=== PATIENT | female | born 1940 | race Hispanic/Latino ===

== ENCOUNTER 2017-04-06 05:48 | Observation (INO) | payer MEDICARE, OTHER ==
--- NOTE | 2017-04-06 06:15 | ED PDOC ---
Arrival/HPI - General Chief Complaint: Weakness/Neurological Deficit Time Seen by Provider: 04/06/17 05:57 Historian: Patient - History of Present Illness Narrative History of Present Illness (Text): 04/06/17 06:13 Pt is a 77 yo who lives at home with her disabled .Staes that earlier today was having trouble getting the words out.Staes she also felt L sided wkns at that time.Called EMS ,pt states that the wkns and inability to speak resolved on way to hospital.Pt denies headache,denies CP or SOB Time/Duration: Prior to Arrival Symptom Onset: Sudden Symptom Course: Resolved Quality: Other Severity Level: Severe Activities at Onset: Rest Associated Symptoms (Text): 04/06/17 06:16 Pt also states she felt transient numbness to the L side of her body which has since resolved Past Medical History - Infectious Disease Hx of Infectious Diseases: None - Cardiac Hx Cardiac Disorders: Yes (mi) Hx Congestive Heart Failure: Yes Other/Comment: angioplasty and stent placement for aortic occlusion 09/23/15 - Pulmonary Hx Respiratory Disorders: No - Neurological Hx Neurological Disorder: Yes HX Cerebrovascular Accident: Yes - HEENT Hx HEENT Disorder: Yes (eyeglasses) - Renal Hx Renal Disorder: No - Endocrine/Metabolic Hx Endocrine Disorders: No - Hematological/Oncological Hx Blood Disorders: Yes (blood transfusion 08/2015) Hx Anemia: Yes (IRON DEFICIENCY ANEMIA) - Integumentary Hx Dermatological Disorder: Yes Other/Comment: b/l arms thin skin with multiple redish purple skin discolorations, slight redness posterior r lower buttock and thigh, l lower abd 1cm x 0.5cm red wound which developed post colostomy reversal sx small amt dng noted,left hip healed red wound, stage 2 1cm round sacral wound clean and dry covered with optifoam,r arm skin tear, left 2nd toe red swollen red dark brown 1cm round dry scab, rash to top of left foot, rash to top right foot, dry brown scab 0.5cm round to left knee, with 3 areas of redness to lle, redness to right knee with multiple areas of red skin, abd scar. - Musculoskeletal/Rheumatological Hx Falls: No Hx Unsteady Gait: Yes - Gastrointestinal Hx Gastrointestinal Disorders: Yes (hc c dif 04/24/16) Hx Colostomy: Yes (reversal 03/07/16) Hx Diverticulitis: Yes Other/Comment: hx GI bleed ischemic bowel, ischemic colitis. JAIL CHART STATES SHE HAS ABSCESS ON ABD. WALL - Genitourinary/Gynecological Hx Genitourinary Disorders: Yes Hx Urinary Tract Infection: Yes - Psychiatric Hx Psychophysiologic Disorder: No Hx Emotional Abuse: No Hx Physical Abuse: No Hx Substance Use: No - Surgical History Hx Appendectomy: Yes Hx Hysterectomy: Yes Other/Comment: colostomy reversal 03/07/16, r hemicolectomy 09/15/15 with colostomy - Anesthesia Hx Anesthesia: No Hx Anesthesia Reactions: No Hx Malignant Hyperthermia: No - Suicidal Assessment Feels Threatened In Home Enviroment: No Family/Social History Smoking Status: Never Smoked Hx Alcohol Use: No Hx Substance Use: No Allergies/Home Meds Allergies/Adverse Reactions: Allergies No Known Allergies Allergy (Verified 04/06/17 05:53) Home Medications: Home Meds Medication Instructions Recorded Confirmed Iron,Carbonyl [Feosol] 65 mg PO DAILY 02/29/16 04/06/17 Pantoprazole [Protonix EC Tab] 40 mg PO DAILY 02/29/16 04/06/17 traMADol [Ultram] 50 mg PO PRN PRN 02/29/16 04/06/17 Physical Exam Vital Signs Temp Pulse Resp BP Pulse Ox 04/06/17 06:00 98.5 F 80 18 108/67 99 Disposition/Present on Arrival - Present on Arrival History of DVT/PE: No History of Uncontrolled Diabetes: No Urinary Catheter: No History of Decub. Ulcer: No History Surgical Site Infection Following: None - Disposition
[2017-04-06] MEDS ORDERED: Sodium Chloride 0.9% 1,000 ML IV STA (06:17)
[2017-04-06 06:45] LABS: BASO # 0.05 K/mm3 (0.0-2.0); BASO % 0.5 % (0.0-3.0); GRAN # 7.93 (1.4-6.5); HEMATOCRIT 32.3 % (36.0-48.0); LYMPH # 0.5 (1.2-3.4); LYMPH % 4.8 % (22.0-35.0); MEAN CELL VOLUME 118.8 fl (80.0-105.0); MEAN CORPUSCULAR HEMOGLOBIN 39.3 pg (25.0-35.0); MEAN CORPUSCULAR HGB CONC 33.1 g/dl (31.0-37.0); MEAN PLATELET VOLUME 9.6 fl (7.0-11.0); MONO # 0.9 (0.1-0.6); MONO % 9.7 % (1.0-6.0); PLATELET COUNT 492 10^3/uL (120.0-450.0); RED CELL DISTRIBUTION WIDTH 18.7 % (11.5-14.5); WHITE BLOOD COUNT 9.3 10^3/ul (4.5-11.0)
[2017-04-06 06:46] LABS: PH,URINE 5.5 (4.7-8.0); URINE BILIRUBIN NEGATIVE (NEGATIVE); URINE BLOOD TRACE-INTACT (NEGATIVE); URINE GLUCOSE (UA) NEGATIVE (NEGATIVE); URINE KETONE 40 mg/dL (NEGATIVE); URINE LEUKOCYTE ESTERASE NEGATIVE Leu/uL (NEGATIVE); URINE PROTEIN NEGATIVE mg/dL (<30 mg/dL); URINE UROBILINOGEN 0.2 E.U./dL (<1 E.U./dL)
[2017-04-06 06:51] LABS: URINE COLOR YELLOW (YELLOW)
[2017-04-06 06:52] LABS: URINE APPEARANCE SL CLOUDY (CLEAR)
--- NOTE | 2017-04-06 06:54 | CT ---
EXAM: CT Head Without Intravenous Contrast CLINICAL HISTORY: 77 years old, female; Signs and symptoms; Other: TIA TECHNIQUE: Axial computed tomography images of the head/brain without intravenous contrast. All CT scans at this facility use one or more dose reduction techniques, viz.: automated exposure control; ma/kV adjustment per patient size (including targeted exams where dose is matched to indication; i.e. head); or iterative reconstruction technique. COMPARISON: No relevant prior studies available. FINDINGS: Limitations: Motion artifact - mild. Brain: Moderate atrophy. No definite intracranial hemorrhage. No mass. Minimal encephalomalacia within LEFT occipital region. Few scattered foci of decreased attenuation within periventricular/subcortical white matter. Probable chronic infarct within RIGHT cerebellum. No definite edema. Ventricles: No hydrocephalus. Bones/joints: No acute fracture. Soft tissues: Unremarkable. Vasculature: Atherosclerotic disease of intracranial arteries. Sinuses: No acute sinusitis. Mastoid air cells: Partial opacification of LEFT mastoid. Orbits: Unremarkable as visualized. IMPRESSION: 1. Nonspecific white matter changes. Acute infarction may be CT occult within first 24 hours. If a focal deficit persists, consider followup CT or MRI for further evaluation. 2. Incidental/non-acute findings are described above.
[2017-04-06 07:00] LABS: URINE BACTERIA MANY (NEG); URINE RBC 0 - 2 /hpf (0-2); URINE WBC 0 - 2 /hpf (0-6)
[2017-04-06 07:03] LABS: INR 0.99 (0.93-1.08); PARTIAL THROMBOPLASTIN TIME 33.4 Seconds (25.1-36.5)
[2017-04-06 07:08] LABS: ALB/GLOB RATIO 1.2 (1.1-1.8); ALKALINE PHOSPHATASE 480 U/L (38-126); ALT/SGPT 52 U/L (7-56); AST/SGOT 147 U/L (14-36); BILIRUBIN,TOTAL 0.9 mg/dL (0.2-1.3); BLOOD UREA NITROGEN 18 mg/dL (7-21); CARBON DIOXIDE 15 mmol/L (21-33); CHLORIDE 107 mmol/L (98-107); GFR AFRICAN-AMERICAN > 60; POTASSIUM 5.5 mmol/L (3.6-5.0); SODIUM 142 mmol/L (132-148); TOTAL PROTEIN 7.4 g/dL (5.8-8.3)
[2017-04-06] MEDS ORDERED: Dextrose 50% SYRINGE Inj (50 ml) ONE (07:09)
[2017-04-06 07:12] LABS: TROPONIN I 0.01 ng/mL
[2017-04-06] MEDS ORDERED: Dextrose 50% SYRINGE Inj (50 ml) IVP STA (07:12)
[2017-04-06] MEDS ORDERED: Sod Polystyrene Sulf 15 gm/60 ml Susp PO STA (07:15)
--- NOTE | 2017-04-06 07:33 | ED PDOC ---
Physical Exam Vital Signs Temp Pulse Resp BP Pulse Ox 04/06/17 09:10 98.1 F 72 19 120/70 97 04/06/17 06:00 98.5 F 80 18 108/67 99 Temperature: Afebrile Blood Pressure: Normal Pulse: Regular Respiratory Rate: Normal Appearance: Positive for: Well-Appearing, Non-Toxic, Comfortable Pain Distress: None Mental Status: Positive for: Alert and Oriented X 3 - Systems Exam Neurological: Present: GCS=15, CN II-XII Intact, Speech Normal, Motor Func Grossly Intact, Normal Sensory Function, Normal Cerebellar Funct, Memory Normal , Normal 2Pt Descrimination Medical Decision Making ED Course and Treatment: 04/06/17 07:00 Case was signed out to me by Dr. Thrasher. Patient came into the emergency department for speech changes and left sided weakness. Currently pending labs and CT readings. 04/06/17 07:[address]: Creator : Luke Shaw MD FINDINGS: Limitations: Motion artifact - mild. Brain: Moderate atrophy. No definite intracranial hemorrhage. No mass. Minimal encephalomalacia within LEFT occipital region. Few scattered foci of decreased attenuation within periventricular/subcortical white matter. Probable chronic infarct within RIGHT cerebellum. No definite edema. Ventricles: No hydrocephalus. Bones/joints: No acute fracture. Soft tissues: Unremarkable. Vasculature: Atherosclerotic disease of intracranial arteries. Sinuses: No acute sinusitis. Mastoid air cells: Partial opacification of LEFT mastoid. Orbits: Unremarkable as visualized. IMPRESSION: 1. Nonspecific white matter changes. Acute infarction may be CT occult within first 24 hours. If a focal deficit persists, consider followup CT or MRI for further evaluation. 2. Incidental/non-acute findings are described above. 04/06/17 08:14 EKG: Ordered, reviewed, and independently interpreted the EKG. Rate : 76 BPM Rhythm : NSR Interpretation : No ST-segment elevations or depressions, no T-wave inversions, normal intervals. 04/06/17 08:52 CT head negative for acute infarct. Aspirin ordered. Patient found to be hypoglycemic and treated with dextrose one amp. Case discussed with Dr. Lucina Martinez who will place her on his service. 04/06/17 09:00 Chest X-ray Impression: No active disease. Normal 04/06/17 09:46 Case was discussed with Dr. Elliot, Neurology, who agrees with plan. - Lab Interpretations Lab Results: 04/06/17 06:20 04/06/17 06:20 Lab Results 04/06/17 07:30: POC Glucose (mg/dL) 272 H 04/06/17 07:09: POC Glucose (mg/dL) 56 L 04/06/17 06:30: Urine Color Yellow, Urine Appearance Sl cloudy, Urine pH 5.5, Ur Specific [place] >= 1.030, Urine Protein Negative, Urine Glucose (UA) Negative, Urine Ketones 40 H, Urine Blood Trace-intact H, Urine Nitrate Positive H, Urine Bilirubin Negative, Urine Urobilinogen 0.2, Ur Leukocyte Esterase Negative, Urine RBC 0 - 2, Urine WBC 0 - 2, Ur Epithelial Cells 1 - 3, Urine Bacteria Many 04/06/17 06:20: Sodium 142, Potassium 5.5 H, Chloride 107, Carbon Dioxide 15 L, Anion Gap 25 H, BUN 18, Creatinine 0.6 L, Est GFR ( Amer) > 60, Est GFR ( Non-Af Amer) > 60, Random Glucose 45 L* D, Calcium 9.0, Total Bilirubin 0.9, AST 147 H, ALT 52, Alkaline Phosphatase 480 H, Troponin I 0.01, Total Protein 7.4, Albumin 4.0, Globulin 3.3, Albumin/Globulin Ratio 1.2 04/06/17 06:20: PT 10.9, INR 0.99, APTT 33.4 04/06/17 06:20: WBC 9.3, RBC 2.72 L, Hgb 10.7 L, Hct 32.3 L, MCV 118.8 H, MCH 39.3 H, MCHC 33.1, RDW 18.7 H, Plt Count 492 H, MPV 9.6, Gran % 85.0 H, Lymph % (Auto) 4.8 L, [place] % (Auto) 9.7 H, Eos % (Auto) 0.0 L, Baso % (Auto) 0.5, Gran # 7.93 H, Lymph # 0.5 L, [place] # 0.9 H, Eos # 0.0, Baso # 0.05, Neutrophils % ( Manual) 86 H, Lymphocytes % (Manual) 4 L, Monocytes % (Manual) 10 H - RAD Interpretation Radiology Orders: 04/06/17 06:17 HEAD W/O (CODE STROKE) [CT] Stat 04/06/17 08:42 CXR [CHEST PORTABLE] [RAD] Stat Pipe Smoking Machine Offbearer: ED Physician - Medication Orders Current Medication Orders: Discontinued Medications Aspirin (Aspirin) 325 mg PO STAT STA Stop: 04/06/17 08:50 Last Admin: 04/06/17 08:56 Dose: 325 mg Dextrose (Dextrose 50% Inj) 50 ml IVP STAT STA Stop: 04/06/17 07:13 Last Admin: 04/06/17 08:11 Dose: Sodium Chloride (Sodium Chloride 0.9%) 1,000 mls @ 500 mls/hr IV .Q2H STA Stop: 04/06/17 08:16 Last Admin: 04/06/17 06:43 Dose: 500 mls/hr eMAR Start Stop Document 04/06/17 06:43 SS (Rec: 04/06/17 06:43 SS [id number]) Intravenous Solution Start Date 04/06/17 Start Time 06:43 End Date 04/06/17 End time 08:43 Total Infusion Time 120 Sodium Polystyrene Sulfonate (Kayexalate Susp) 30 gm PO STAT STA Stop: 04/06/17 07:16 Last Admin: 04/06/17 08:00 Dose: 30 gm - Scribe Statement The provider has reviewed the documentation as recorded by the Michael Watson Provider Scribe Attestation: All medical record entries made by the Scribe were at my direction and personally dictated by me. I have reviewed the chart and agree that the record accurately reflects my personal performance of the history, physical exam, medical decision making, and the department course for this patient. I have also personally directed, reviewed, and agree with the discharge instructions and disposition. Disposition/Present on Arrival - Present on Arrival Any Indicators Present on Arrival: No History of DVT/PE: No History of Uncontrolled Diabetes: No Urinary Catheter: No History of Decub. Ulcer: No History Surgical Site Infection Following: None - Disposition Have Diagnosis and Disposition been Completed?: Yes Diagnosis: Hypoglycemia Disposition: HOSPITALIZED Disposition Time: 08:53 Patient Plan: Observation Condition: FAIR NIHSS Stroke Scale - Date/Time Evaluation Performed Date Performed: 04/06/17 Time Performed: 07:00 When Was NIHSS Performed: Baseline - How Severe is the Stroke Level of Consciousness: 0=Alert LOC to Questions: 0=Both comments correct LOC to commands: 0=Obeys both correctly Best Gaze: 0=Normal Visual: 0=No visual loss Facial: 0=Normal Motor Arm - Left: 0=No drift Motor Arm - Right: 0=No drift Motor Leg - Left: 0=No drift Motor Leg - Right: 0=No drift Limb Ataxia: 0=Absent Sensory: 0=Normal Best Language: 0=No aphasia Dysarthia: 0=Normal articulation Extinction & Inattention (Neglect): 0=Normal, no object Score: 0 rTPA Inclusion/Exclusion - Refusal of Treatment Patient Refused Treatment: No - Inclusion Criteria for Altepase Patient is 18 years or Older: Yes The Clinical Diagnosis of Ischemic Stroke That is Causing a Potentially Disabling Neurological Deficit: No Time of Onset is Well Established to be Less Than 270 Minute Before Treatment Would Begin: Yes Risk/Benefit Discussed With Patient/Family Member Present: No - Warning to TPA With Conditions Following Conditions Weighed Against Anticipated Benefit: Yes Condition: Stroke Serevity Too Mild, Rapid Improvement
[2017-04-06 07:34] LABS: GLUCOSE,RANDOM 45 mg/dL (70-110)
[2017-04-06 08:40] LABS: NEUTROPHIL 86 % (50.0-70.0)
--- NOTE | 2017-04-06 10:17 | HP ---
HISTORY OF PRESENT ILLNESS: The patient is a 77-year-old woman with a past medical history of CAD s/p NSTEMI, PVD and anemia of chronic disease who presented to [facility] for evaluation of a 1 day history of sudden onset dysarthria and left sided weakness. The patient reported to be in her usual state of health until the onset of symptoms, which were sudden in nature, and by the time of arrival to the ED she was noted to have resolution of her symptoms. She denied any preceding fevers, chills, rigors or URI type symptoms. At present she reports being back to her baseline status. PAST MEDICAL HISTORY: As per HPI, also history of ischemic colitis s/p right hemicolectomy s/p ileostomy with reversal PAST SURGICAL HISTORY: As per HPI. MEDICATIONS: Aspirin 81 mg p.o. daily, Lipitor 80 mg p.o. daily. ALLERGIES: NO KNOWN DRUG ALLERGIES. FAMILY HISTORY: Noncontributory. SOCIAL HISTORY: The patient denies any toxic habits. REVIEW OF SYSTEMS: A 14-point review of systems is negative except as per HPI. PHYSICAL EXAMINATION: VITAL SIGNS: Temperature 98.1, pulse 72, blood pressure 120/70, respiratory rate 19, oxygen saturation 97% on room air. GENERAL: Elderly woman, appearing her stated age, in no apparent distress. HEENT: Normocephalic, atraumatic. PERRL, EOMI. No scleral icterus. Mild conjunctival pallor is noted. NECK: No JVD. No bruits. LUNGS: Clear to auscultation. CARDIOVASCULAR: Regular rate and rhythm. ABDOMEN: Normoactive bowel sounds. Soft, nontender and nondistended. EXTREMITIES: No edema. NEUROLOGIC: Awake, alert and oriented x 3. No focal motor deficits. CN II- XII intact. LABORATORY DATA: WBC 9.3 with 85% neutrophils, hemoglobin 10.7, hematocrit 32, platelets 492. Sodium 142, potassium 5.5, chloride 107, bicarb 15, BUN 18, creatinine 0.6, glucose 45. IMAGING STUDIES: CT of the head without contrast demonstrated nonspecific white matter changes but otherwise no acute intracranial pathology. ASSESSMENT: The patient is a 77 year old woman with past medical history of CAD s/p NSTEMI, PVD, mesenteric ischemia s/p right hemicolectomy s/p ileostomy with reversal who presented with a 1 day history of sudden onset of left-sided weakness and dysarthria with spontaneous resolution of symptoms, who subsequently admitted to the general medical dale for continued management of possible TIA and symptomatic hypoglycemia. PLAN: 1. TIA. CT of the head is reviewed and demonstrates no acute intracranial pathology. Dr. Zarate of Neurology has been consulted. We will obtain carotid artery ultrasound. Continue aspirin 81 mg p.o. daily, Lipitor 80 mg p.o. daily. Continue to monitor neuro status q. 4 hours. 2. Hypoglycemia. Etiology likely secondary to poor p.o. intake as the patient states that she has not been eating well over the last several days. We will continue to monitor fingersticks before every meal and at bedtime. 3. CAD s/p NSTEMI. Continue aspirin 81 mg p.o. daily and Lipitor 80 mg p.o. daily. 4. Peripheral vascular disease. Continue aspirin 81 mg p.o. daily and Lipitor 80 mg p.o. daily. 5. Prophylaxis. GI prophylaxis is not indicated as the patient is eating. DVT prophylaxis is not indicated as the patient is ambulatory. CODE STATUS: Full code. Elpidio Martinze MD MTDD
--- NOTE | 2017-04-06 10:41 | RAD ---
HISTORY: Aphasia COMPARISON: No prior. FINDINGS: LUNGS: Hyperinflation with paucity of interstitial markings in the upper lobes consistent with underlying emphysema. Coarsened/reticular appearance of the interstitial markings both mid to lower lung zones again noted. Probable mild scarring left lung base. PLEURA: Mild biapical pleural thickening No significant pleural effusion identified, no pneumothorax apparent. CARDIOVASCULAR: Normal. OSSEOUS STRUCTURES: No significant abnormalities. VISUALIZED UPPER ABDOMEN: Normal. OTHER FINDINGS: None. IMPRESSION: Hyperinflation with paucity of interstitial markings in the upper lobes consistent with underlying emphysema. Coarsened/reticular appearance of the interstitial markings both mid to lower lung zones again noted. Probable mild scarring left lung base.
[2017-04-06 12:46] VITALS: RESP 18; BMI 15.1
[2017-04-06 18:18] VITALS: O2SAT 100
--- NOTE | 2017-04-06 20:04 | CARD ---
APPROVED REPORT EKG Measurement Heart [id number] <Conclusion> Normal sinus rhythm Normal ECG
--- NOTE | 2017-04-06 20:06 | CARD ---
APPROVED REPORT EKG Measurement Heart [id number] <Conclusion> Sinus rhythm with occasional and consecutive premature ventricular complexes and fusion complexes Nonspecific ST and T wave abnormality Prolonged QT Abnormal ECG
--- NOTE | 2017-04-07 01:41 | CON ---
DATE: HISTORY OF PRESENT ILLNESS: This is a 77-year-old white female with past medical history not significant, came to hospital with complaint of aphasia and weakness, and found to have hypoglycemia and symptoms have improved coming to hospital. Called to evaluate the patient. CAT scan of the head was done, which was reported negative. PAST MEDICAL HISTORY: The patient also has past medical history of coronary artery disease, [place], anemia of chronic disease, and the patient had sudden onset of dysarthria and left-sided weakness. SOCIAL HISTORY: Does not smoke, does not drink. REVIEW OF SYSTEMS: A 10-point review of systems was negative except weakness on the right side and dysphasia. PHYSICAL EXAMINATION HEENT: Normocephalic and atraumatic. NECK: Supple. NEUROLOGIC: Alert, awake oriented to self and place. Cranial nerves II to XII were tested. Pupils reactive. Bilateral bilateral adenoidectomy. No facial asymmetry. Tongue midline. Motor examination: Moves all the extremities spontaneously and equally. Tone normal. Deep tendon reflexes 1+. Both plantars are downgoing. Sensory appears intact. Cerebellar; gait deferred. IMPRESSION: A 77-year-old with past medical history of coronary artery disease and myocardial infarction who came to the hospital with sudden onset of left-sided weakness, dysarthria and aphasia. Started improving coming to the emergency room. CAT scan of the head was done, which was reported negative. Workup in progress possibly secondary to hypoglycemia and symptoms improved. We will followup. Parmjit Zarate MD
[2017-04-07 07:17] LABS: BASO # 0.03 K/mm3 (0.0-2.0); BASO % 0.4 % (0.0-3.0); EOS % 0.4 % (1.5-5.0); GRAN # 5.44 (1.4-6.5); GRAN % 74.6 % (50.0-68.0); HEMATOCRIT 26.7 % (36.0-48.0); LYMPH # 0.9 (1.2-3.4); LYMPH % 11.7 % (22.0-35.0); MEAN CELL VOLUME 115.6 fl (80.0-105.0); MEAN CORPUSCULAR HEMOGLOBIN 38.5 pg (25.0-35.0); MEAN CORPUSCULAR HGB CONC 33.3 g/dl (31.0-37.0); MEAN PLATELET VOLUME 9.1 fl (7.0-11.0); MONO # 0.9 (0.1-0.6); MONO % 12.9 % (1.0-6.0); RED CELL DISTRIBUTION WIDTH 18.6 % (11.5-14.5); WHITE BLOOD COUNT 7.3 10^3/ul (4.5-11.0)
[2017-04-07 07:45] LABS: ALB/GLOB RATIO 1.1 (1.1-1.8); ALKALINE PHOSPHATASE 442 U/L (38-126); ALT/SGPT 46 U/L (7-56); AST/SGOT 96 U/L (14-36); BILIRUBIN,TOTAL 0.9 mg/dL (0.2-1.3); BLOOD UREA NITROGEN 14 mg/dL (7-21); CALCIUM 8.4 mg/dL (8.4-10.5); CARBON DIOXIDE 27 mmol/L (21-33); CHLORIDE 105 mmol/L (98-107); CHOLESTEROL 164 mg/dL (130-200); GFR AFRICAN-AMERICAN > 60; GLUCOSE,RANDOM 95 mg/dL (70-110); SODIUM 138 mmol/L (132-148); TOTAL PROTEIN 5.7 g/dL (5.8-8.3)
[2017-04-07 08:07] VITALS: BP 93/57; TEMP 98.7
[2017-04-07] MEDS ORDERED: Potassium Chloride 20 mEq ER Tab PO ONE (08:22)
--- NOTE | 2017-04-07 09:19 | PN ---
SUBJECTIVE: The patient was seen and examined at bedside on the remote telemetry dale. No acute events overnight. She remains afebrile and hemodynamically stable. The patient reports complete resolution of her presenting symptoms, which consisted of dysarthria and left-sided weakness. This morning she states she feels great and that she is back to her baseline and is asking when she will be discharged home. OBJECTIVE: VITAL SIGNS: Temperature 98.7, pulse 65, blood pressure 93/57, respiratory rate 18, oxygen saturation 100% on room air. GENERAL: Elderly woman appearing her stated age, lying in bed in no apparent distress. HEENT: PERRL. EOMI. No scleral icterus. Mild conjunctival pallor is noted. NECK: No JVD. No bruits. LUNGS: Clear to auscultation. CARDIOVASCULAR: Regular rate and rhythm. Normal S1 and S2. ABDOMEN: Normoactive bowel sounds. Soft, nontender, and nondistended. EXTREMITIES: No edema. NEUROLOGIC: Awake, alert and oriented x3. No focal motor deficits. LABORATORY DATA: WBC 7.3, hemoglobin 8.9, hematocrit 26.7, and platelets 379. MCV 115. Chemistry reviewed and unremarkable with exception of potassium of 3. ASSESSMENT: The patient is a 77 year old woman with a past medical history of CAD s/p NSTEMI, PVD and mesenteric ischemia s/p right hemicolectomy s/p ileostomy with reversal who presented with a 1 day history of sudden onset of left-sided weakness and dysarthria with spontaneous resolution of symptoms who was subsequently admitted to the remote telemetry dale for continued management of possible TIA and symptomatic hypoglycemia. PLAN: 1. TIA. Input from Dr. Zarate of neurology noted. CT of the head demonstrated no acute pathology. Carotid U/S is pending. Continue with Aspirin 81 mg p.o. daily and Lipitor 80 mg p.o. daily. 2. Hypoglycemia, likely secondary to poor p.o. intake, resolved. The patient' s fingersticks have been reviewed and demonstrate satisfactory glucose values. Continue to encourage p.o. intake. 3. CAD s/p NSTEMI. Continue aspirin 81 mg p.o. daily and Lipitor 80 mg p.o. daily. 4. Peripheral vascular disease. Continue aspirin 81 mg p.o. daily and Lipitor 80 mg p.o. daily. 5. Prophylaxis. GI prophylaxis is not indicated as the patient is eating. DVT prophylaxis is not indicated as the patient is ambulatory. 6. Disposition: The patient likely discharged home today pending carotid ultrasonography reports. CODE STATUS: Full code. Elpidio Martinez MD MTDD
[2017-04-07 10:27] VITALS: PULSE 98
--- NOTE | 2017-04-07 13:20 | US ---
PROCEDURE: HISTORY: Carotid stenosis PHYSICIAN(S): Thee Sosa MD. TECHNIQUE: Duplex sonography and color-flow Doppler were used to evaluate the carotid bifurcations and limited segments of the vertebral arteries bilaterally. FINDINGS: There is extensive heterogeneous echogenic plaque with shadowing noted at the carotid bifurcations bilaterally. The peak systolic velocity in the proximal right internal carotid artery is 190 cm/sec. This corresponds to a 60-79 percent proximal right ICA stenosis. Moderately elevated systolic velocities are noted in the proximal right external carotid artery. There is antegrade flow in the right vertebral artery. The peak systolic velocity in the proximal left internal carotid artery is 217 cm/sec. The end-diastolic velocity at this position is 14 cm/second This corresponds to a 60-79 percent proximal left ICA stenosis. Mildly elevated systolic velocities are noted in the proximal left external carotid artery. There is antegrade flow in the left vertebral artery. IMPRESSION: 1. Bilateral 60-79 percent proximal ICA stenoses. 2. Antegrade flow in both vertebral arteries.
--- NOTE | 2017-04-07 14:09 | CP.PCM.PN ---
Subjective - Date & Time of Evaluation Date of Evaluation: 04/07/17 Time of Evaluation: 09:00 - Subjective Subjective: PGY-2 Neurology progress note for Dr. Zarate's service Patient jacob nd examined at bedside, no acute distress, she is resting comfortably. Patient is alter and oriented to person, place and situation. She states that she aphasia and weakness have completely resolved. Denies any fever , chills, headaches, dizziness, chest pain. Objective - Vital Signs/Intake and Output Vital Signs (last 24 hours): Temp Pulse Resp BP Pulse Ox 98.7 F 98 H 18 93/57 L 100 04/07/17 08:06 04/07/17 10:00 04/07/17 08:06 04/07/17 08:06 04/07/17 08:06 Intake and Output: 04/07/17 04/07/17 06:59 18:59 Intake Total 540 Balance 540 - Medications Medications: Current Medications Acetaminophen (Tylenol 325mg Tab) 650 mg PO Q6H PRN PRN Reason: Pain, moderate (4-7) Last Admin: 04/06/17 21:37 Dose: 650 mg Aspirin (Aspirin Chewable) 81 mg PO DAILY [facility] Last Admin: 04/07/17 09:05 Dose: 81 mg Atorvastatin Calcium (Lipitor) 80 mg PO DIN [facility] Last Admin: 04/06/17 17:22 Dose: 80 mg - Labs Labs: 04/07/17 06:30 04/07/17 06:30 PT 10.9 SECONDS (9.4-12.5) 04/06/17 06:20 INR 0.99 (0.93-1.08) 04/06/17 06:20 APTT 33.4 Seconds (25.1-36.5) 04/06/17 06:20 - Constitutional Appears: Well, No Acute Distress - Head Exam Head Exam: ATRAUMATIC, NORMAL INSPECTION, NORMOCEPHALIC - Eye Exam Eye Exam: EOMI, Normal appearance - ENT Exam ENT Exam: Mucous Membranes Moist - Respiratory Exam Respiratory Exam: Clear to Ausculation Bilateral, NORMAL BREATHING PATTERN. absent: Respiratory Distress - Cardiovascular Exam Cardiovascular Exam: REGULAR RHYTHM - Extremities Exam Extremities Exam: Normal Inspection - Neurological Exam Neurological Exam: Alert, Awake, CN II-XII Intact, Oriented x3 Neuro motor strength exam: Left Upper Extremity: 5, Right Upper Extremity: 5, Left Lower Extremity: 5, Right Lower Extremity: 5 - Skin Skin Exam: Dry, Intact, Normal Color, Warm Assessment and Plan - Assessment and Plan (Free Text) Assessment: 77 yo female with PMH of CAD, [place], present with transient aphasia and left sided weakness most likely TIA - head CT negative - carotid ultrasound 60-75% stenosis in bilateral proximal ICA - continue asa 81mg, Lipitor 80mg Case reviewed and discussed with attending
--- NOTE | 2017-04-09 02:59 | DS ---
ADMITTING DIAGNOSES: Transient ischemic attack, symptomatic hypoglycemia. DISCHARGE DIAGNOSES: Transient ischemic attack, symptomatic hypoglycemia (resolved). SECONDARY DIAGNOSES: Coronary artery disease, status post non-ST elevation myocardial infarction, peripheral vascular disease, ischemic colitis, status post right hemicolectomy, and status post ileostomy with reversal. CONSULTATIONS: Dr. Zarate (Neurology). IMAGING STUDIES: 1. Chest x-ray, which demonstrated hyperinflation consistent with emphysema, but otherwise no acute pathology. 2. CT of the head without contrast, which demonstrated nonspecific white matter changes, but no acute pathology. DIAGNOSTIC STUDIES: Carotid and vertebral artery ultrasound demonstrated bilateral 60% to 79% proximal ICA stenosis. HISTORY OF PRESENT ILLNESS: The patient is a 77-year-old woman with a past medical history of CAD, status post non-ST elevation OR, PVD, and anemia of chronic disease, who presented to [facility] for evaluation of a one-day history of sudden onset of dysarthria and left-sided weakness. The patient reported to be in her usual state of health until the onset of symptoms, which were sudden in nature and by the time of arrival to the ED, she was noted to have resolution of her symptoms. She denied any preceding fevers, chills, rigors, or URI type symptoms. Of note, the patient did report poor appetite for several days with decreased p.o. intake, but otherwise did not know any other potential contributing factors. By the time of evaluation in the ED, she was back to her baseline functional status. Given her age and comorbidities as well as her presenting symptoms, she was admitted to the remote telemetry dale for further neurological workup of suspected TIA. HOSPITAL COURSE: Upon admission to the remote telemetry dale, the patient was evaluated by Dr. Zarate of Neurology. She was also started on IV fluid hydration. Given her presentation with symptomatic hypoglycemia, fingersticks over the next 24 hours demonstrated satisfactory levels as the patient was eating well. She denied any neurological deficits during her hospital stay and a carotid ultrasound, which was obtained as a part of TIA workup was unremarkable. Given the resolution of her symptoms, the patient was deemed stable for discharge to home the following day. CONDITION: Good, improved. DISPOSITION: Home. DISCHARGE MEDICATIONS: Aspirin 81 mg p.o. daily and Lipitor 80 mg p.o. daily. DISCHARGE INSTRUCTIONS: The patient was advised that If she has any recurrence of her symptoms to presented to her PMD or to the nearest Emergency Department immediately. The patient was also advised to eat 3 meals a day so as to reduce the risk of further hypoglycemic episodes. She was also counseled on the signs and symptoms of hypoglycemia. FOLLOWUP: The patient is to follow up with her PMD within one week of discharge. Elpidio Martinez MD
== END 2017-04-07 15:45 | disposition home or self-care (01) ==
LOC: ED 05:48 → ERH 09:00 → 3RSO 11:24 → 3RNO 14:05
PROVIDERS: ADMIT Student in an Organized Health Care Education/Training Program; ATTEND Student in an Organized Health Care Education/Training Program
DX: E16.2 Hypoglycemia, unspecified (principal); I25.10 Atherosclerotic heart disease of native coronary artery without angina pectoris; I73.9 Peripheral vascular disease, unspecified; D63.8 Anemia in other chronic diseases classified elsewhere; R47.1 Dysarthria and anarthria; R47.01 Aphasia; I25.2 Old myocardial infarction; Z93.2 Ileostomy status; Z90.49 Acquired absence of other specified parts of digestive tract
CPT/HCPCS: 36415; 70450; 71010; 80053; 80061; 81001; 82948; 83036; 84484; 85025; 85610; 85730; 87086; 93005; 93880; 96360; 96361; 99285; G0378; J7040

== ENCOUNTER 2017-07-08 11:51 | Inpatient (IN) | payer MEDICARE, OTHER ==
[2017-07-08 12:01] VITALS: BMI 16.2
[2017-07-08] MEDS ORDERED: Morphine 2 mg/ml ISec IM STA (12:04)
--- NOTE | 2017-07-08 12:23 | ED PDOC ---
Addendum entered and electronically signed by Cam Valenzuela DO 07/08/17 16: 59: Physical Exam Vital Signs Temp Pulse Resp BP Pulse Ox 07/08/17 16:31 18 99 07/08/17 15:38 74 18 108/66 95 07/08/17 14:10 72 17 109/69 95 07/08/17 12:43 102 H 19 95 07/08/17 12:30 91 H 18 125/71 93 L 07/08/17 12:07 98.4 F 98 H 18 110/67 98 - Systems Exam Lower Extremity: Present: Other (Right leg is externally rotated. Knee flexed at approx 120 degrees. R. Hip ecchymosis. No active bleeding or evidence of open fracture or dislcocation. Skin surrounding hip is warm and dry. Pain with attempted range of motion of the R. Hip. Left leg straight. ) Original Note: Arrival/HPI - General Historian: Patient - History of Present Illness Time/Duration: Prior to Arrival Symptom Onset: Gradual Symptom Course: Worsening Context: Walking - General Chief Complaint: Trauma Time Seen by Provider: 07/08/17 11:57 - History of Present Illness Narrative History of Present Illness (Text): 07/08/17 12:08 Patient is a 77F with a past medical history including heart attack w/stent and stroke with no residual weakness who comes to the ED after a fall yesterday evening. Patient was reaching for the mail in her apartment after she fell. She then crawled to her living room (approx 10 feet) trying to get to the phone so she could call her neighbor. The neighbors heard her calling so they went downstairs. At this time the patient was put into bed by her neighbors and fell asleep for a short while. She then woke up in pain and called her neighbors insisting on going to the hospital. 911 was called and the patient was brought in. The patient usually ambulated with her walker and was reportedly using her walker at the time of the injury. Patient had a colon resection for diverticulitis with colostomy reversal. Patient is an everday smoker and drinker. (Cam Valenzuela) Past Medical History - Travel History Have you recently traveled outside [place] w/in the past 3 mons?: No - Past History Past History: No Previous - Infectious Disease Hx of Infectious Diseases: None - Past Medical History Past Medical History: Non-Contributing - Cardiac Hx Cardiac Disorders: Yes (mi) Hx Congestive Heart Failure: Yes Other/Comment: angioplasty and stent placement for aortic occlusion 09/23/15 - Pulmonary Hx Respiratory Disorders: No - Neurological Hx Neurological Disorder: Yes HX Cerebrovascular Accident: Yes - HEENT Hx HEENT Disorder: Yes (eyeglasses) - Renal Hx Renal Disorder: No - Endocrine/Metabolic Hx Endocrine Disorders: No - Hematological/Oncological Hx Blood Disorders: Yes (blood transfusion 08/2015) Hx Anemia: Yes (IRON DEFICIENCY ANEMIA) - Integumentary Hx Dermatological Disorder: Yes Other/Comment: b/l arms thin skin with multiple redish purple skin discolorations, slight redness posterior r lower buttock and thigh, l lower abd 1cm x 0.5cm red wound which developed post colostomy reversal sx small amt dng noted,left hip healed red wound, stage 2 1cm round sacral wound clean and dry covered with optifoam,r arm skin tear, left 2nd toe red swollen red dark brown 1cm round dry scab, rash to top of left foot, rash to top right foot, dry brown scab 0.5cm round to left knee, with 3 areas of redness to lle, redness to right knee with multiple areas of red skin, abd scar. - Musculoskeletal/Rheumatological Hx Falls: No Hx Unsteady Gait: Yes - Gastrointestinal Hx Gastrointestinal Disorders: Yes (hc c dif 04/24/16) Hx Colostomy: Yes (reversal 03/07/16) Hx Diverticulitis: Yes Other/Comment: hx GI bleed ischemic bowel, ischemic colitis. SENIOR CARE CHART STATES SHE HAS ABSCESS ON ABD. WALL - Genitourinary/Gynecological Hx Genitourinary Disorders: Yes Hx Urinary Tract Infection: Yes - Psychiatric Hx Psychophysiologic Disorder: No Hx Emotional Abuse: No Hx Physical Abuse: No Hx Substance Use: No - Surgical History Hx Appendectomy: Yes Hx Hysterectomy: Yes Other/Comment: colostomy reversal 03/07/16, r hemicolectomy 09/15/15 with colostomy - Anesthesia Hx Anesthesia: No Hx Anesthesia Reactions: No Hx Malignant Hyperthermia: No - Suicidal Assessment Feels Threatened In Home Enviroment: No Family/Social History Family/Social History: No Known Family HX Smoking Status: Never Smoked Hx Alcohol Use: No Hx Substance Use: No Allergies/Home Meds Allergies/Adverse Reactions: Allergies No Known Allergies Allergy (Verified 07/08/17 15:49) Home Medications: Home Meds Medication Instructions Recorded Confirmed Hydrocortisone 2.5% 2.5 % TOP QID 07/08/17 07/08/17 [Hydrocortisone 2.5%] Triamterene/Hydrochlorothiazid 50 - 75 cap PO DAILY 07/08/17 07/08/17 [Triamterene-Hydrochlorothiazide 25 mg-37.5 mg] Review of Systems - Review of Systems Constitutional: Normal Eyes: Normal ENT: Normal Respiratory: Normal Cardiovascular: Normal Gastrointestinal: Normal Genitourinary Female: Normal Musculoskeletal: Other (R. Hip pain) Skin: Other (ecchymosis b/l upper extrem) Neurological: Normal Endocrine: Normal Hemo/Lymphatic: Normal Psychiatric: Normal Physical Exam - Physical Exam Physical Exam Limitations: Uncooperative Temperature: Afebrile Blood Pressure: Normal Pulse: Regular Respiratory Rate: Normal Appearance: Positive for: Non-Toxic Pain Distress: Severe Mental Status: Positive for: Alert and Oriented X 3 - Systems Exam Head: Present: Atraumatic, Normocephalic Pupils: Present: PERRL Extroacular Muscles: Present: EOMI Conjunctiva: Present: Normal Mouth: Present: Moist Mucous Membranes Neck: Present: Normal Range of Motion Respiratory/Chest: Present: Clear to Auscultation, Good Air Exchange. No: Respiratory Distress, Accessory Muscle Use Cardiovascular: Present: Regular Rate and Rhythm, Normal S1, S2. No: Murmurs Abdomen: Present: Normal Bowel Sounds. No: Tenderness, Distention, Peritoneal Signs Back: Present: Normal Inspection Upper Extremity: Present: Other (ecchymosis) Lower Extremity: Present: Other (ecchymosis). No: Normal ROM Neurological: Present: GCS=15, CN II-XII Intact, Speech Normal Skin: Present: Warm, Dry, Normal Color. No: Rashes Psychiatric: Present: Alert, Oriented x 3 Vital Signs Temp Pulse Resp BP Pulse Ox 07/08/17 16:31 18 99 07/08/17 15:38 74 18 108/66 95 07/08/17 14:10 72 17 109/69 95 07/08/17 12:43 102 H 19 95 07/08/17 12:30 91 H 18 125/71 93 L 07/08/17 12:07 98.4 F 98 H 18 110/67 98 Medical Decision Making ED Course and Treatment: 07/08/17 12:56 Patient seen and evaluated with dental assistant medical assistant. History supplemented with her "tenant" who is at her bedside. Reportedly patient fell YESTERDAY, reportedly helped her to bed and she was not able to bear weight. Currently she denies chest pain or shortness of breath, denies abdominal pain or vomiting or diarrhea. Patient noted to be in severe pain with deformity and shortening/ rotation of the right leg. NV intact. At this time no focal weakness noted. IV pain medication ordered. Xrays pending at this time. 07/08/17 21:17 Xrays reveal right hip fracture. Pain improved but persistent after iv morphine. She is nv intact. EKG reveals lateral st changes, although she denies any chest pain or shortness of breath. Initial troponin and cpk unrermarkable. There is skin tear to right hand, but no bony pain. A dressing was applied to this after it was cleansed and irrigated. Skin tear too superficial to suture. Case d/w Dr. Paty Martinez, will consult ortho, Dr. Murrieta is covering for oncall orthopedic physician. Will admit to remote telemetry bed as she has multiple comorbities, although on current exam NO abdominal pain, NO chest pain, NO sob. NO dark or bloody stool. (Yancy Simon) - Lab Interpretations Lab Results: 07/08/17 12:28 07/08/17 12:28 Lab Results 07/08/17 12:28: Sodium 143, Potassium 3.7, Chloride 109 H, Carbon Dioxide 23, Anion Gap 14, BUN 12, Creatinine 0.5 L, Est GFR ( Amer) > 60, Est GFR ( Non-Af Amer) > 60, Random Glucose 201 H, Calcium 8.9, Phosphorus 3.2, Magnesium 1.8, Total Bilirubin 0.6, AST 99 H, ALT 44, Alkaline Phosphatase 498 H, Lactate Dehydrogenase 824 H, Total Creatine Kinase 201, Troponin I < 0.01, Total Protein 6.3, Albumin 3.1, Globulin 3.2, Albumin/Globulin Ratio 1.0 L 07/08/17 12:28: PT 10.4, INR 0.91 L, APTT 31.0 07/08/17 12:28: WBC 9.2 D, RBC 2.55 L, Hgb 9.6 L, Hct 29.6 L, MCV 116.1 H, MCH 37.6 H, MCHC 32.4, RDW 17.4 H, Plt Count 345, MPV 10.3, Gran % 78.7 H, Lymph % ( Auto) 8.0 L, [place] % (Auto) 12.8 H, Eos % (Auto) 0.0 L, Baso % (Auto) 0.5, Gran # 7.26 H, Lymph # (Auto) 0.7 L, [place] # (Auto) 1.2 H, Eos # (Auto) 0.0, Baso # ( Auto) 0.05 - RAD Interpretation Radiology Orders: 07/08/17 12:23 CHEST ONE VIEW [RAD] Stat 07/08/17 12:30 HIP MIN 2V W/ PELVIS RT [RAD] Stat - Medication Orders Current Medication Orders: Acetaminophen (Tylenol 325mg Tab) 650 mg PO Q6H PRN PRN Reason: Fever >100.4 F Atorvastatin Calcium (Lipitor) 80 mg PO DIN [facility] Sodium Chloride (Sodium Chloride 0.9%) 500 mls @ 999 mls/hr IV .Q31M [facility] Last Admin: 07/08/17 12:35 Dose: 999 mls/hr eMAR Start Stop Document 07/08/17 12:35 [email or web address] (Rec: 07/08/17 12:35 [email or web address] [id number]) Intravenous Solution Start Date 07/08/17 Start Time 12:35 End Date 07/08/17 Sodium Chloride (Sodium Chloride 0.9%) 1,000 mls @ 100 mls/hr IV .Q10H [facility] Last Admin: 07/08/17 18:12 Dose: 100 mls/hr eMAR Start Stop Document 07/08/17 18:12 [facility] (Rec: 07/08/17 18:12 [facility] [id number]) Intravenous Solution Start Date 07/08/17 Start Time 18:12 Metoprolol Tartrate (Lopressor) 12.5 mg PO BID [facility] Last Admin: 07/08/17 18:41 Dose: 12.5 mg MAR Pulse and Blood Pressure Document 07/08/17 18:41 [facility]SV (Rec: 07/08/17 18:41 [facility] [id number]) Pulse Pulse Rate (60-90 beats/min) 86 Blood Pressure Blood Pressure (100/60-150/90 mm Hg) 125/67 Morphine Sulfate (Morphine) 4 mg IVP Q4H PRN PRN Reason: Pain, severe (8-10) Last Admin: 07/08/17 17:34 Dose: 4 mg [facility] Pain Assessment Document 07/08/17 17:34 S[facility] (Rec: 07/08/17 17:34 [id number] Pain Reassessment Is this a pain reassessment? No Presence of Pain Presence of Pain Yes Pain Scale Used Pain Scale Used Numeric Location Left, Right or Bilateral Right Pain Location Body Site Hip Description Description Constant Intensity of Pain at present 10 Pain Behavior Moaning Guarding Withdrawal from Touch Aggravating Factors Changing Position Alleviating Factors/Management Medication Techniques Alleviating Factors Medication IVP Administration Document 07/08/17 17:34 [facility] (Rec: 07/08/17 17:34 [id number][facility] Charges for Administration # of IVP Administrations 1 Re-Assess: [facility] Pain Assessment Document 07/08/17 18:34 [facility] (Rec: 07/08/17 18:34 [email or web address] Pain Reassessment Is this a pain reassessment? Yes Sleep Is patient sleeping during reassessment? Yes Tramadol HCl (Ultram) 50 mg PO Q8 PRN PRN Reason: Pain, moderate (4-7) Discontinued Medications Morphine Sulfate (Morphine) 2 mg IM STAT STA Stop: 07/08/17 12:05 Last Admin: 07/08/17 12:08 Dose: 2 mg [facility] Pain Assessment Document 07/08/17 12:08 [email or web address] (Rec: 07/08/17 12:09 [email or web address] [id number]) Pain Reassessment Is this a pain reassessment? No Sleep Is patient sleeping during reassessment? No Presence of Pain Presence of Pain Yes Pain Scale Used Pain Scale Used Numeric Location Left, Right or Bilateral Right Pain Location Body Site Arm Leg Description Description Constant Intensity of Pain at present 9 Pain Behavior Moaning Crying Guarding Irritability Withdrawal from Touch Grasping Site Restlessness Facial Grimacing Screaming Aggravating Factors Changing Position Alleviating Factors/Management Medication Techniques Alleviating Factors Medication IM Administration Charges Document 07/08/17 12:08 [email or web address] (Rec: 07/08/17 12:[id number]- [id number]) Injection Site MAR Injection Site Right Deltoid Charges for Administration # of IM Administrations 1 Morphine Sulfate (Morphine) 2 mg IVP STAT STA Stop: 07/08/17 12:27 Last Admin: 07/08/17 12:35 Dose: 2 mg MAR Pain Assessment Document 07/08/17 12:35 [email or web address] (Rec: 07/08/17 12:[id number]) Pain Reassessment Is this a pain reassessment? No Sleep Is patient sleeping during reassessment? No Presence of Pain Presence of Pain Yes Pain Scale Used Pain Scale Used Numeric Location Left, Right or Bilateral Right Pain Location Body Site Leg Description Intensity of Pain at present 9 Pain Behavior Facial Grimacing Alleviating Factors/Management Medication Techniques Alleviating Factors Medication IVP Administration Document 07/08/17 12:35 [email or web address] (Rec: 07/08/17 12:[id number]) Charges for Administration # of IVP Administrations 1 Morphine Sulfate (Morphine) 2 mg IVP STAT STA Stop: 07/08/17 12:45 Last Admin: 07/08/17 12:48 Dose: 2 mg MAR Pain Assessment Document 07/08/17 12:48 [email or web address] (Rec: 07/08/17 12:[id number]) Pain Reassessment Is this a pain reassessment? No Sleep Is patient sleeping during reassessment? No Presence of Pain Presence of Pain Yes Pain Scale Used Pain Scale Used Numeric Location Left, Right or Bilateral Right Pain Location Body Site Leg Description Description Constant Intensity of Pain at present 9 Pain Behavior Facial Grimacing Aggravating Factors Changing Position Alleviating Factors/Management Medication Techniques Alleviating Factors Medication IVP Administration Document 07/08/17 12:48 [email or web address] (Rec: 07/08/17 12:48 [place] [id number]) Charges for Administration # of IVP Administrations 1 Pneumococcal Polyvalent Vaccine (Pneumovax 23 Vaccine) 0.5 ml IM .ONCE ONE Stop: 07/08/17 20:03 Tetanus/Reduced Diphtheria/Acell Pertussis (Boostrix Vaccine Inj) 0.5 ml IM .ONCE ONE Stop: 07/08/17 15:04 Last Admin: 07/08/17 16:32 Dose: MAR Immunization Data Document 07/08/17 16:32 [facility] (Rec: 07/08/17 16:33 [id number]) Immunization Data Associated Event Comment Patient in pain does not want shot at this time. Immunization Registry Document 07/08/17 16:32 [email or web address] (Rec: 07/08/17 16:33 [id number]) Immunization Registry Consent Date 04/06/17 - PA / CUTTING TORCH OPERATOR / Resident Statement MD/DO has reviewed & agrees with the documentation as recorded. MD/DO has examined the patient and agrees with the treatment plan. Disposition/Present on Arrival - Present on Arrival Any Indicators Present on Arrival: No History of DVT/PE: No History of Uncontrolled Diabetes: No Urinary Catheter: No History Surgical Site Infection Following: None - Disposition Have Diagnosis and Disposition been Completed?: Yes Disposition Time: 14:24 Patient Plan: Admission - Disposition Diagnosis: Hip fracture, Skin tear, Arm contusion, Abnormal EKG Disposition: HOSPITALIZED Patient Problems: Current Active Problems Problem Status Onset Abnormal EKG Acute Arm contusion Acute Hip fracture Acute Skin tear Acute Condition: SERIOUS
[2017-07-08] MEDS ORDERED: Morphine 2 mg/ml ISec IVP STA ×2 (12:26→12:44)
[2017-07-08] MEDS ORDERED: Sodium Chloride 0.9% 500 ML IV SCH (12:30)
[2017-07-08] MEDS ORDERED: Morphine 2 mg/ml ISec ONE ×2 (12:31→12:46)
[2017-07-08 12:43] LABS: BASO # 0.05 K/mm3 (0.0-2.0); BASO % 0.5 % (0.0-3.0); GRAN # 7.26 (1.4-6.5); GRAN % 78.7 % (50.0-68.0); HEMOGLOBIN 9.6 g/dL (12.0-16.0); LYMPH # 0.7 (1.2-3.4); MEAN CELL VOLUME 116.1 fl (80.0-105.0); MEAN CORPUSCULAR HEMOGLOBIN 37.6 pg (25.0-35.0); MEAN CORPUSCULAR HGB CONC 32.4 g/dl (31.0-37.0); MEAN PLATELET VOLUME 10.3 fl (7.0-11.0); MONO # 1.2 (0.1-0.6); MONO % 12.8 % (1.0-6.0); RBC 2.55 10^6/uL (3.5-6.1); RED CELL DISTRIBUTION WIDTH 17.4 % (11.5-14.5); WHITE BLOOD COUNT 9.2 10^3/ul (4.5-11.0)
[2017-07-08 12:51] LABS: ALBUMIN 3.1 g/dL (3.0-4.8); ALT/SGPT 44 U/L (7-56); AST/SGOT 99 U/L (14-36); BLOOD UREA NITROGEN 12 mg/dL (7-21); CALCIUM 8.9 mg/dL (8.4-10.5); GFR AFRICAN-AMERICAN > 60; GFR NON-AFRICAN AMERICAN > 60
[2017-07-08 12:55] LABS: INR 0.91 (0.93-1.08); PROTHROMBIN TIME 10.4 SECONDS (9.4-12.5)
[2017-07-08 13:02] LABS: TROPONIN I < 0.01 ng/mL
--- NOTE | 2017-07-08 13:28 | RAD ---
PROCEDURE: CHEST RADIOGRAPH, 1 VIEW HISTORY: SOB COMPARISON: Portable chest 04/06/2017. FINDINGS: LUNGS: No acute infiltrate bilaterally. PLEURA: No pneumothorax or pleural fluid seen. CARDIOVASCULAR: Normal. OSSEOUS STRUCTURES: No significant abnormalities. VISUALIZED UPPER ABDOMEN: Normal. OTHER FINDINGS: None. IMPRESSION: No interval acute cardiopulmonary disease appreciated.
[2017-07-08] MEDS ORDERED: TDAP Vaccine 0.5 mL Syr IM ONE (15:03)
[2017-07-08] MEDS: Morphine 4 mg/ml ISec IVP PRN ×2 (17:34→22:47)
[2017-07-08] MEDS: Sodium Chloride 0.9% 1,000 ML IV SCH (18:12)
--- NOTE | 2017-07-08 18:15 | RAD ---
PROCEDURE: Right hip HISTORY: fall COMPARISON: None TECHNIQUE: Standard protocol for this study/examination. FINDINGS: Oblique fracture through the proximal femur are including inter trochanteric region with avulsion of the lesser trochanter. Additional information cannot be gleaned from this limited study. IMPRESSION: Acute proximal right femoral fracture.
[2017-07-08] MEDS ORDERED: Pneumococcal 23-Valent Vaccine IM ONE (20:02)
[2017-07-08] MEDS ORDERED: Influenza Vaccine 60 mcg/0.5 mL SYR (4YR UP) IM ONE (20:02)
--- NOTE | 2017-07-08 21:40 | CON ---
DATE: ORTHOPEDIC CONSULT HISTORY OF PRESENT ILLNESS: Patient is a 77-year-old female admitted to [facility] to the ER on 07/08/2017 for being at home where she fell a day before she was admitted and broke her right hip and she was found by her friends where they live and brought to the emergency room in a state of dehydration and pain. X-ray shows intertrochanteric and subtrochanteric fracture of right hip displaced, will need open reduction and internal fixation to get rid of her pain and as long as she could tolerate the surgery and she get a consult from Dr. Elpidio Martinez and Dr. Olivera. Once sets her pain, we could do a right hip pinning with a [employer] peritroch alfredo on 07/09/2017 at 1:30 p.m., We will give her blood thinner today and get her medically cleared for surgery. FINAL DIAGNOSES: Displaced right hip fracture, intertrochanteric and subtrochanteric fracture and plan for open reduction and internal fixation when medically cleared and hopefully we could do it on 07/09/2017 at 1:30 p.m. in the OR . Marco A Morales DO MTDMoises
[2017-07-09 01:31] LABS: URINE APPEARANCE SL CLOUDY (CLEAR); URINE BILIRUBIN NEGATIVE (NEGATIVE); URINE BLOOD SMALL (NEGATIVE); URINE COLOR YELLOW (YELLOW); URINE GLUCOSE (UA) NEGATIVE (NEGATIVE); URINE LEUKOCYTE ESTERASE NEGATIVE Leu/uL (NEGATIVE); URINE PROTEIN NEGATIVE mg/dL (<30 mg/dL); URINE UROBILINOGEN 0.2 E.U./dL (<1 E.U./dL)
[2017-07-09 01:41] LABS: URINE WBC 0 - 2 /hpf (0-6)
[2017-07-09 01:42] LABS: URINE BACTERIA MANY (NEG); URINE EPITHELIAL CELLS 0 - 2 /hpf (0-5)
[2017-07-09] MEDS: Morphine 4 mg/ml ISec IVP PRN ×3 (02:54→22:44)
[2017-07-09] MEDS: Sodium Chloride 0.9% 1,000 ML IV SCH (02:55)
[2017-07-09 06:23] LABS: BASO # 0.04 K/mm3 (0.0-2.0); BASO % 0.4 % (0.0-3.0); EOS # 0.1 (0.0-0.7); EOS % 0.5 % (1.5-5.0); GRAN # 8.04 (1.4-6.5); GRAN % 76.1 % (50.0-68.0); HEMOGLOBIN 7.7 g/dL (12.0-16.0); LYMPH # 0.8 (1.2-3.4); LYMPH % 7.8 % (22.0-35.0); MEAN CELL VOLUME 117.4 fl (80.0-105.0); MEAN CORPUSCULAR HEMOGLOBIN 37.2 pg (25.0-35.0); MEAN CORPUSCULAR HGB CONC 31.7 g/dl (31.0-37.0); MEAN PLATELET VOLUME 10.4 fl (7.0-11.0); MONO # 1.6 (0.1-0.6); MONO % 15.2 % (1.0-6.0); RBC 2.07 10^6/uL (3.5-6.1); RED CELL DISTRIBUTION WIDTH 17.8 % (11.5-14.5); WHITE BLOOD COUNT 10.6 10^3/ul (4.5-11.0)
[2017-07-09 06:39] LABS: INR 0.97 (0.93-1.08); PROTHROMBIN TIME 11.2 SECONDS (9.4-12.5)
--- NOTE | 2017-07-09 07:15 | CARD ---
APPROVED REPORT EKG Measurement Heart [id number] ME [id number] <Conclusion> Sinus tachycardia STTW changes c/w ischemia LVH by voltage Prolonged QTc
[2017-07-09 07:20] LABS: ALB/GLOB RATIO 0.9 (1.1-1.8); ALBUMIN 2.6 g/dL (3.0-4.8); ALT/SGPT 42 U/L (7-56); AST/SGOT 67 U/L (14-36); BLOOD UREA NITROGEN 12 mg/dL (7-21); CALCIUM 8.2 mg/dL (8.4-10.5); GFR AFRICAN-AMERICAN > 60; GFR NON-AFRICAN AMERICAN > 60
--- NOTE | 2017-07-09 10:53 | CP.PCM.PCO ---
Assessment & Plan (1) Pre-operative cardiovascular examination, high risk surgery Status: Acute (2) Hip fracture Status: Acute - Assessment and Plan (Free Text) Assessment: Patient seen and examined this AM. Requires hip repair surgery. Has extensive atherosclerotic disease with prior MA, PAD with occluded abdominal aorta, as well as moderate mitral regurgitation. She has a pre-operative anemia with a hemoglobin of 7.7. Her cardiac risk is moderately high but given the urgent need for surgery, it would appear reasonable to proceed, but I would recommend transfusing her to a hemoglobin if greater than 9 prior to surgery today. Will follow. - Date & Time Date: 07/09/17 Time: 10:45
[2017-07-09] MEDS ORDERED: Bupivacaine 0.5% Inj(30mL) ONE (17:08)
--- NOTE | 2017-07-09 17:47 | HP ---
HISTORY OF PRESENT ILLNESS: The patient is a 77 year old woman with a past medical history of severe PVD, mesenteric ischemia s/p SMA stent with history of ischemia colitis s/p right hemicolectomy s/p ileostomy with reversal, CAD s/p NSTEMI and history of TIA who presented to [facility] ED for evaluation of acute onset of right hip pain after a mechanical fall. The patient reports being in her usual state of health until the day of presentation to the ED when she tripped and fell on her right side. She noted immediate onset of severe right hip pain and inability to ambulate. She crawled approximately 10 feet to the phone and called EMS. She was subsequently brought to [facility] ED for evaluation where workup demonstrated an acute proximal right femoral fracture. She was evaluated by Dr. Morales of Orthopedic Surgery but owing to her multiple comorbidities cardiac clearance was requested. The patient was then admitted to the telemetry dale for pain control and evaluation by Dr. Olivera of Cardiology. PAST MEDICAL HISTORY: As per HPI, also anemia of chronic disease. PAST SURGICAL HISTORY: As per HPI. ALLERGIES: NKDA. MEDICATIONS: Aspirin 81 mg p.o. daily and Lipitor 80 mg p.o. daily. FAMILY HISTORY: Noncontributory. SOCIAL HISTORY: The patient denies any toxic habits. REVIEW OF SYSTEMS: The patient denies chest pain, palpitations, claudication, orthopnea, lower extremity edema, presyncope, or syncope. The remainder of review of systems is negative except as per HPI. PHYSICAL EXAMINATION: VITAL SIGNS: Temperature 98.9, pulse 96, blood pressure 117/60, respiratory rate 18, and oxygen saturation 98% on room air. GENERAL: Frail elderly, chronically ill appearing woman lying in bed, in no apparent distress. HEENT: Normocephalic, atraumatic. PERRL. EOMI. No scleral icterus. Mild conjunctival pallor is noted. NECK: No JVD. LUNGS: Clear to auscultation. CARDIOVASCULAR: Regular rate and rhythm. Normal S1 and S2. ABDOMEN: Normoactive bowel sounds. Soft, nontender, and nondistended. EXTREMITIES: No edema. Decreased range of motion to right hip (limited by pain ). NEUROLOGIC: Awake, alert, and oriented x3. No focal motor deficits. LABORATORY DATA: WBC 10.6 with 76% neutrophils, hemoglobin 7.7, hematocrit 24, and platelets 299. Sodium 143, potassium 3.6, chloride 113, bicarbonate 25, BUN 12, creatinine 0.5 , and glucose 111. IMAGING STUDIES: 1. Chest x-ray demonstrated no acute pathology. 2. X-ray of the right hip demonstrated acute proximal right femoral fracture. ASSESSMENT: The patient is a 77 year old woman with a past medical history of CAD s/p NSTEMI , severe PVD, history of TIA and history of mesenteric ischemia s/p right hemicolectomy s/p ileostomy with reversal who presented s/p mechanical fall with a sustained right femoral fracture and who was admitted for orthopedic repair. PLAN: 1. Acute closed fracture of the right femur. Input from Dr. Morales noted and greatly appreciated. The patient is pending cardiac evaluation with Dr. Olivera. She would certainly be a high-risk patient for an intermediate risk procedure given her extensive underlying vasculopathy. The patient has been started on beta-blockade with Mmetoprolol 12.5 mg p.o. b.i.d. Will transfuse to goal Hb > 9. 2. CAD s/p NSTEMI. Resume Lipitor 80 mg p.o. daily. We will hold Aspirin 81 mg p.o. daily in anticipation of OR. 3. History of TIA. As above, we will resume Lipitor 80 mg p.o. daily and hold Aspirin 81 mg p.o. daily in anticipation of OR. 4. Severe PVD. Resume Lipitor 80 mg p.o. daily. 5. Anemia of chronic disease. As above we will transfuse PRBC's to goal Hb > 9. Continue to monitor H/H daily. 6. Prophylaxis. Continue Protonix 40 mg IV daily for GI prophylaxis. We will hold Lovenox in anticipation of OR. CODE STATUS: Full code. Elpidio Martinez MD [facility]
--- NOTE | 2017-07-09 17:50 | PN ---
DATE: 07/09/2017 SUBJECTIVE: The patient's surgery on the right hip has to be delayed for peritrochanteric right because when she came in on the , she was dehydrated because she fell the night before. Her admitting hemoglobin was 9.6, hematocrit 29.6, then the blood count came down this morning to 7.7 hemoglobin, 24 hematocrit, so we are going to give 2 units of blood, which would delay the surgery and then we will send her to Surgery with having 2 more units on hand as this fracture is the cause for her anemia, but also would help aggravate the anemia. So at dilution that we had, I gave her normal saline, IV fluids because of dehydration she was in. When she came in, she was dehydrated mildly. So, we gave her 2 units of packed cells today, do the surgery this afternoon and get her up out of bed tomorrow. By fixing the fracture, she should bleed much less. The fracture being intertrochanteric fracture with a subtrochanteric component does bleed quite a bit. So, as we stabilize the fracture, she should bleed less and have less pain. So, the cardiac clearance was given. She should benefit from the surgery and there is always a risk, but it is not that high of the risk. By not doing the surgery, she has increased risk of pneumonia, bed sores, and further bleeding. Marco A Morales DO
[2017-07-09] MEDS ORDERED: Propofol 10 mg/ml Inj (20 ML) ONE (18:00)
[2017-07-09] MEDS ORDERED: Rocuronium 10 mg/ml (5 ml) ONE (18:09)
[2017-07-09] MEDS ORDERED: Neostigmine Methylsulfate 3mg/3ml Syringe IV ONE (18:35)
[2017-07-09] MEDS ORDERED: HYDROmorphone 0.5 mg/0.5 ml ISec IVP PRN (19:47)
[2017-07-09] MEDS ORDERED: Sodium Chloride 0.9% 1,000 ML IV SCH (20:00)
[2017-07-09] MEDS ORDERED: Morphine 2 mg/ml ISec ONE (20:57)
[2017-07-09 21:25] LABS: ARTERIAL BLOOD GAS HCO3 16.9 mmol/L (21-28); ARTERIAL BLOOD GAS HEMOGLOBIN 11.3 g/dL (11.7-17.4); ARTERIAL BLOOD GAS O2 CAPACITY 15.5 mL/dl (16-24); ARTERIAL BLOOD GAS O2 CONTENT 14.2 ML/dl (15-23); ARTERIAL BLOOD GAS O2 SAT 91.6 % (95-98); ARTERIAL BLOOD GAS PCO2 32 mm/Hg (35-45); ARTERIAL BLOOD GAS PH 7.33 (7.35-7.45); ARTERIAL BLOOD GAS TCO2 17.9 mmol.L (22-28)
[2017-07-09] MEDS ORDERED: Morphine 2 mg/ml ISec IVP STA (21:27)
[2017-07-09 21:39] LABS: BASO # 0.04 K/mm3 (0.0-2.0); BASO % 0.3 % (0.0-3.0); EOS % 0.1 % (1.5-5.0); GRAN # 9.55 (1.4-6.5); HEMOGLOBIN 11.7 g/dL (12.0-16.0); LYMPH % 8.3 % (22.0-35.0); MEAN CELL VOLUME 103.2 fl (80.0-105.0); MEAN CORPUSCULAR HEMOGLOBIN 33.6 pg (25.0-35.0); MEAN CORPUSCULAR HGB CONC 32.6 g/dl (31.0-37.0); MEAN PLATELET VOLUME 10.8 fl (7.0-11.0); MONO # 1.4 (0.1-0.6); MONO % 11.3 % (1.0-6.0); RBC 3.48 10^6/uL (3.5-6.1); RED CELL DISTRIBUTION WIDTH 23.6 % (11.5-14.5); WHITE BLOOD COUNT 11.9 10^3/ul (4.5-11.0)
[2017-07-09 21:57] LABS: BLOOD UREA NITROGEN 16 mg/dL (7-21); GFR AFRICAN-AMERICAN > 60; GFR NON-AFRICAN AMERICAN > 60
[2017-07-09] MEDS ORDERED: Iohexol 350 MG/100 ML VIAL ONE (22:14)
--- NOTE | 2017-07-09 23:52 | CP.PCM.CON ---
History of Present Illness - History of Present Illness History of Present Illness: Kam Pickering PGY1 ICU Consult Note Ms. Perez is a 77 yo Caucian Female with PMH of severe PVD, mesenteric ischemia s/p SMA stent w/ history of ischemic colitis s/p R hemicoelctomy s/p ileostomy w/ reversal, CAD s/p NSTEMI and TIA who presented with acute R hip pain s/p mechanicall fall. The patient was found to have an acute oblique fracture through proximal femur (inter-trochancteric region w/ avulsion of lesser trochanter). Patient was evaluated by Ortho and cleared by Cardio for OR today for an ORIF of femural w/ nail (antegrade). Post-op, while in PACU, the patient was noted to by hypoxic with inconsistent pulse ox readings. She was placed on non-rebreather and ABG was done and showed metabolic acidosis and hypoxia. Pulse ox determined to be be >90%. ICU Consult was placed. When seen, the patient is awake and alert but no oriented and not responding appropriately. she is unable to follow simple commands. ROS was limited. Per Chart Review: PMH: as above PSH: R hip ORIF, SOURAV/BSO, R hemicolectomy with illeostomy reversal ALL: NKDA SHx: drinks ETOH occasionally, denies any smoking or drugs FHx: Non contributory Review of Systems - Review of Systems Systems not reviewed;Unavailable: Altered Mental Status Past Patient History - Infectious Disease Hx of Infectious Diseases: None - Past Medical History & Family History Past Medical History?: Yes - Past Social History Smoking Status: Current Some Days Smoker Alcohol: Occasional Drugs: Denies - CARDIAC Hx Cardiac Disorders: Yes (mi) Hx Congestive Heart Failure: Yes Other/Comment: angioplasty and stent placement for aortic occlusion 09/23/15 - PULMONARY Hx Respiratory Disorders: Yes (CURRENTLY SMOKES CIGARETTES .STATES SHE SMOKES EVERY NOW AND THEN.) - NEUROLOGICAL Hx Neurological Disorder: Yes HX Cerebrovascular Accident: Yes - HEENT Hx HEENT Problems: Yes (eyeglasses) - RENAL Hx Chronic Kidney Disease: No - ENDOCRINE/METABOLIC Hx Endocrine Disorders: No - HEMATOLOGICAL/ONCOLOGICAL Hx Blood Transfusions: Yes Hx Blood Transfusion Reaction: No - INTEGUMENTARY Hx Dermatological Problems: Yes Other/Comment: diffuse thin skin with multiple redish purple skin discolorations , - MUSCULOSKELETAL/RHEUMATOLOGICAL Hx Musculoskeletal Disorders: Yes Hx Falls: Yes (07-08-17) Hx Fractures: Yes (R HIP FRACTURE 07-07-17) Hx Unsteady Gait: Yes (WALKER) - GASTROINTESTINAL Hx Gastrointestinal Disorders: Yes (hc c dif 04/24/16) Hx Colostomy: Yes (reversal 03/07/16) Hx Diverticulitis: Yes Other/Comment: hx GI bleed ischemic bowel, ischemic colitis. HALF-WAY CHART STATES SHE HAS ABSCESS ON ABD. WALL - GENITOURINARY/GYNECOLOGICAL Hx Genitourinary Disorders: Yes Hx Urinary Tract Infection: Yes - PSYCHIATRIC Hx Psychophysiologic Disorder: Yes (SMOKES AND DRINKS BEER EVERY NOW AND THEN) Hx Emotional Abuse: No Hx Physical Abuse: No Hx Substance Use: No - SURGICAL HISTORY Hx Surgeries: Yes - ANESTHESIA Hx Anesthesia Reactions: No Hx Malignant Hyperthermia: No Meds Allergies/Adverse Reactions: Allergies Allergy/AdvReac Type Severity Reaction Status Date / Time No Known Allergies Allergy Verified 07/08/17 15:49 - Medications Medications: Current Medications Acetaminophen (Tylenol 325mg Tab) 650 mg PO Q6H PRN PRN Reason: Fever >100.4 F Acetaminophen (Tylenol 650 Mg Supp) 650 mg RC Q4H PRN PRN Reason: Fever >100.4 F Last Admin: 07/09/17 18:15 Dose: 650 mg Acetaminophen (Tylenol 325mg Tab) 650 mg PO Q6H PRN PRN Reason: Pain, moderate (4-7) Atorvastatin Calcium (Lipitor) 80 mg PO DIN [facility] Last Admin: 07/09/17 17:26 Dose: Not Given Cefazolin Sodium (Ancef 1gm In Ns) 1 gm in 100 mls @ 100 mls/hr IVPB Q8 [facility] PRN Reason: Protocol Metoprolol Tartrate (Lopressor) 12.5 mg PO BID [facility] Last Admin: 07/09/17 17:43 Dose: 12.5 mg Morphine Sulfate (Morphine) 4 mg IVP Q4H PRN PRN Reason: Pain, severe (8-10) Last Admin: 07/09/17 22:44 Dose: 4 mg Pantoprazole Sodium (Protonix Inj) 40 mg IVP DAILY [facility] Last Admin: 07/09/17 11:50 Dose: 40 mg Tramadol HCl (Ultram) 50 mg PO Q8 PRN PRN Reason: Pain, moderate (4-7) Physical Exam - Constitutional Appears: Well, Non-toxic, No Acute Distress, Confused, Cachectic - Head Exam Head Exam: ATRAUMATIC, NORMAL INSPECTION - Eye Exam Eye Exam: EOMI, Normal appearance, PERRL - ENT Exam ENT Exam: Mucous Membranes Dry - Respiratory Exam Respiratory Exam: Rales (L bases), NORMAL BREATHING PATTERN. absent: Rhonchi, Wheezes, Respiratory Distress Additional comments: on non-rebreather - Cardiovascular Exam Cardiovascular Exam: RRR, +S1, +S2 - GI/Abdominal Exam GI & Abdominal Exam: Soft. absent: Distended, Tenderness - Extremities Exam Extremities exam: Negative for: pedal edema Additional comments: R hip with dressing c/d/i - Back Exam Back exam: NORMAL INSPECTION - Neurological Exam Neurological exam: Altered - Skin Skin Exam: Erythema (multiple lesions diffuse) Results - Vital Signs Recent Vital Signs: Last Vital Signs Temp 98.8 F 07/09/17 21:45 Pulse 70 07/09/17 21:45 Resp 17 07/09/17 21:45 BP 129/67 07/09/17 21:45 Pulse Ox 95 07/09/17 21:45 - Labs Result Diagrams: 07/09/17 21:28 07/09/17 21:28 Labs: Laboratory Results - last 24 hr 07/09/17 07/09/17 07/09/17 00:30 05:30 06:00 WBC 10.6 RBC 2.07 L Hgb 7.7 L Hct 24.3 L MCV 117.4 H MCH 37.2 H MCHC 31.7 RDW 17.8 H Plt Count 299 MPV 10.4 Gran % 76.1 H Lymph % (Auto) 7.8 L [place] % (Auto) 15.2 H Eos % (Auto) 0.5 L Baso % (Auto) 0.4 Gran # 8.04 H Lymph # (Auto) 0.8 L [place] # (Auto) 1.6 H Eos # (Auto) 0.1 Baso # (Auto) 0.04 PT INR pCO2 pO2 HCO3 ABG pH ABG Total CO2 ABG O2 Saturation ABG O2 Content ABG Base Excess ABG Hemoglobin ABG Carboxyhemoglobin POC ABG HHb (Measured) ABG Methemoglobin ABG O2 Capacity Hgb O2 Saturation FiO2 Sodium Potassium Chloride Carbon Dioxide Anion Gap BUN Creatinine Est GFR ( Amer) Est GFR (Non-Af Amer) Random Glucose Calcium Total Bilirubin AST ALT Alkaline Phosphatase Total Protein Albumin Globulin Albumin/Globulin Ratio Urine Color Yellow Urine Appearance Sl cloudy Urine pH 5.0 Ur Specific [place] >= 1.030 Urine Protein Negative Urine Glucose (UA) Negative Urine Ketones Negative Urine Blood Small H Urine Nitrate Positive H Urine Bilirubin Negative Urine Urobilinogen 0.2 Ur Leukocyte Esterase Negative Urine RBC 1 - 3 Urine WBC 0 - 2 Ur Epithelial Cells 0 - 2 Urine Bacteria Many Blood Type O POSITIVE Antibody Screen Negative Crossmatch See Detail BBK History Checked Patient has bt 07/09/17 07/09/17 07/09/17 06:00 06:00 21:20 WBC RBC Hgb Hct MCV MCH MCHC RDW Plt Count MPV Gran % Lymph % (Auto) [place] % (Auto) Eos % (Auto) Baso % (Auto) Gran # Lymph # (Auto) [place] # (Auto) Eos # (Auto) Baso # (Auto) PT 11.2 INR 0.97 pCO2 32 L pO2 56.0 L HCO3 16.9 L ABG pH 7.33 L ABG Total CO2 17.9 L ABG O2 Saturation 91.6 L ABG O2 Content 14.2 L ABG Base Excess -8.1 L ABG Hemoglobin 11.3 L ABG Carboxyhemoglobin 1.9 H POC ABG HHb (Measured) 8.2 H ABG Methemoglobin 0.8 ABG O2 Capacity 15.5 L Hgb O2 Saturation 89.1 L FiO2 100.0 Sodium 143 Potassium 3.6 Chloride 113 H Carbon Dioxide 25 Anion Gap 9 L BUN 12 Creatinine 0.5 L Est GFR ( Amer) > 60 Est GFR (Non-Af Amer) > 60 Random Glucose 111 H Calcium 8.2 L Total Bilirubin 0.6 AST 67 H D ALT 42 Alkaline Phosphatase 365 H D Total Protein 5.5 L Albumin 2.6 L Globulin 2.9 Albumin/Globulin Ratio 0.9 L Urine Color Urine Appearance Urine pH Ur Specific [place] Urine Protein Urine Glucose (UA) Urine Ketones Urine Blood Urine Nitrate Urine Bilirubin Urine Urobilinogen Ur Leukocyte Esterase Urine RBC Urine WBC Ur Epithelial Cells Urine Bacteria Blood Type Antibody Screen Crossmatch BBK History Checked 07/09/17 07/09/17 21:28 21:28 WBC 11.9 H RBC 3.48 L Hgb 11.7 L D Hct 35.9 L MCV 103.2 D MCH 33.6 MCHC 32.6 RDW 23.6 H Plt Count 227 MPV 10.8 Gran % 80.0 H Lymph % (Auto) 8.3 L [place] % (Auto) 11.3 H Eos % (Auto) 0.1 L Baso % (Auto) 0.3 Gran # 9.55 H Lymph # (Auto) 1.0 L [place] # (Auto) 1.4 H Eos # (Auto) 0.0 Baso # (Auto) 0.04 PT INR pCO2 pO2 HCO3 ABG pH ABG Total CO2 ABG O2 Saturation ABG O2 Content ABG Base Excess ABG Hemoglobin ABG Carboxyhemoglobin POC ABG HHb (Measured) ABG Methemoglobin ABG O2 Capacity Hgb O2 Saturation FiO2 Sodium 145 Potassium 3.6 Chloride 116 H Carbon Dioxide 18 L Anion Gap 14 BUN 16 Creatinine 0.6 L Est GFR ( Amer) > 60 Est GFR (Non-Af Amer) > 60 Random Glucose 86 Calcium 8.0 L Total Bilirubin AST ALT Alkaline Phosphatase Total Protein Albumin Globulin Albumin/Globulin Ratio Urine Color Urine Appearance Urine pH Ur Specific [place] Urine Protein Urine Glucose (UA) Urine Ketones Urine Blood Urine Nitrate Urine Bilirubin Urine Urobilinogen Ur Leukocyte Esterase Urine RBC Urine WBC Ur Epithelial Cells Urine Bacteria Blood Type Antibody Screen Crossmatch BBK History Checked Assessment & Plan - Assessment and Plan (Free Text) Assessment: 77 yo Caucian Female with PMH of severe PVD, mesenteric ischemia s/p SMA stent w / history of ischemic colitis s/p R hemicoelctomy s/p ileostomy w/ reversal, CAD s/p NSTEMI and TIA s/p R hip ORF for fracture s/p mechanical fall being transferred to ICU for hypoxia while in PACU. In OR, patient received fluids and 2u pRBC without any Lasix given. Given Lasix in PACU with some improvement. Plan: Neuro: currently altered, unknown if baseline dementia neurochecks q2 monitor mental status transfer patient to ICU for monitoring morphine prn pain but will limit narcotics to assess mental status Cardio: limit fluid intake patient received Lasix 20mg IVP x2 with improvement maintain MAP > 65 monitor for distal pulses monitor VS Pulm: CXR showed Left lobe congestion and possible effusion A-a gradient calculated and is high CTA chest (PE protocol) ordered STAT to r/o embolism given hx of fracture cont on non-rebreather repeat ABG in AM low threshold for intubation given hypoxia and AMS maintain SaO2 > 90% encourage incentive spirometer GI: NPO due to aspiration precautions cont GI ppx Renal: Lasix given monitor for UOP to catheter in place monitor for electrolyte changes and replete accordingly ID: afebrile monitor for signs of infection tylenol prn fevers maintain normothermia on Ancef for empiric coverage Endo: maintain euglycemia Heme: monitor H/H currently stable s/p 2u pRBC if need to transfuse again if Hgb < 7, give lasix after monitor morning labs PTX/SCDs for GI/DVT ppx Patient was seen, examined and discussed with attending, Dr. Vanessa Pickering PGY1
--- NOTE | 2017-07-10 00:13 | CT ---
EXAM: CT Angiography Chest With Intravenous Contrast CLINICAL HISTORY: 77 years old, female; Signs and symptoms; Shortness of breath and other: Hypoxia; Additional info: SOB and hypoxia TECHNIQUE: Axial computed tomographic angiography images of the chest with intravenous contrast using pulmonary embolism protocol. All CT scans at this facility use one or more dose reduction techniques, viz.: automated exposure control; ma/kV adjustment per patient size (including targeted exams where dose is matched to indication; i.e. head); or iterative reconstruction technique. MIP reconstructed images were created and reviewed. Coronal and sagittal reformatted images were created and reviewed. CONTRAST: 93 mL of [id number] administered intravenously. COMPARISON: CT - ANGIO CHEST PE PROTOCOL 2016-03-10 05:53 FINDINGS: Pulmonary arteries: There are filling defects in the right main, upper, and lower lobe pulmonary arteries consistent with pulmonary emboli. Aorta: No acute findings. No thoracic aortic aneurysm. Lungs: Extensive dense airspace consolidation is present in the left lung most severe in the lower lobe. Right lower lobe dependent consolidation secondary to atelectasis or infiltrate. Pleural space: Small bilateral pleural effusions are present. No pneumothorax. Heart: Coronary artery calcification. No cardiomegaly. No significant pericardial effusion. No evidence of RV dysfunction. Bones/joints: No acute fracture. No dislocation. Soft tissues: Unremarkable. Lymph nodes: Multiple mildly prominent mediastinal lymph nodes measuring up to 10 mm. Liver: There is a diffuse decrease in hepatic parenchymal density, consistent with fatty infiltration. IMPRESSION: Right pulmonary emboli. Extensive left pulmonary airspace consolidation consistent with pneumonia. Right lung base dependent consolidation secondary to atelectasis or infiltrate. Small bilateral pleural effusions. Fatty liver. THIS REPORT CONTAINS FINDINGS THAT MAY BE CRITICAL TO PATIENT CARE. The findings were verbally communicaated via telephone conference with Dr. Mendez at 12:10 AM EDT on 07/10/2017. The findings were acknowledged and understood.
[2017-07-10] MEDS: ceFAZolin 1 gm in NS 1 GM/100 ML BAG IVPB SCH ×2 (00:29→05:12)
[2017-07-10] MEDS: Heparin25000 units/250ml 1/2NS 25,000 UNITS/250 ML BAG IV PRN (02:24)
--- NOTE | 2017-07-10 06:07 | CON ---
DATE: 07/09/2017 REQUESTING PHYSICIAN: Dr. Martinez. REASON FOR CONSULTATION: Preoperative cardiac evaluation. HISTORY OF PRESENT ILLNESS: This is a 77-year-old woman known to us from prior admissions, with a history of coronary artery disease and diffuse atherosclerotic disease, who was admitted after a fall with resultant right hip fracture. She is tentatively scheduled for a surgical repair later today. She denies any recent chest pain. She states that she lost her balance with a resultant fall. She denied any loss of consciousness or palpitations. PAST MEDICAL HISTORY: Her past history is fairly complex in that she has known coronary artery disease status post prior myocardial infarction. She has also had mesenteric ischemia and occluded distal abdominal aorta. She has undergone prior stenting of her superior mesenteric artery, has a history of ischemic colitis and required a right hemicolectomy in the past with eventual reversal. She also has moderate mitral regurgitation and mild LV dysfunction. She has had a prior TIA as well. CURRENT MEDICATIONS: Include Lipitor, metoprolol 12.5 mg b.i.d., Protonix, morphine, and Ultram. SOCIAL HISTORY: She is a former smoker. She denies alcohol use. ALLERGIES: None. FAMILY HISTORY: Both parents are from age-related illness. REVIEW OF SYSTEMS: A 10-point review of systems is otherwise unremarkable. PHYSICAL EXAMINATION: GENERAL: She is a chronically-ill appearing elderly woman. VITAL SIGNS: Her blood pressure was 126/70 with a pulse of 100, respirations are 16. She is afebrile. HEENT: Normocephalic, atraumatic. NECK: No JVD. CHEST: Bilateral scattered rhonchi. HEART: PMI displaced laterally with a soft systolic murmur at the apex. ABDOMEN: Soft, nontender with normoactive bowel sounds. EXTREMITIES: No edema. Diminished distal pulses. SKIN: Warm and dry. DIAGNOSTIC DATA: Potassium is 3.6, BUN and creatinine are 12 and 0.5. Glucose 111. Hemoglobin and hematocrit are 7.7 and 24.3 with a platelet count of 299,000. White count of 10.6. PT and INR is 11.2 and 0.97, albumin is 2.6. Electrocardiogram reveals sinus tachycardia with ST-T changes, possible anterolateral ischemia cannot be excluded. LVH is present. Chest x-ray reveals normal cardiac silhouette with clear lung paulino. IMPRESSION: 1. Mechanical fall with resultant hip fracture, in need of surgical repair. 2. Coronary artery disease status post remote myocardial infarction, no evidence of active ischemia recently. 3. Moderate mitral regurgitation. 4. Significant peripheral vascular disease with prior intestinal ischemia requiring superior mesenteric artery stenting and hemicolectomy. 5. Rest of the problems as noted. 6. Severe anemia. RECOMMENDATIONS: At this time, transfusion of 2 units of packed cells prior to proceeding with surgical repair of her hip would be appropriate in order to optimize her condition. Blood transfusion should not be given too briskly given her valvular heart disease and potential for decompensating congestive heart failure. In addition, intraoperatively, avoidance of excessive volume infusion would be appropriate. She appears to be at moderately increased risk for perioperative cardiac events given her history and general condition; however, after transfusion, she would likely be adequately optimized to proceed with acceptable risk. Thanks for this consultation. We are happy to follow her through hospital course and make further recommendations as appropriate. Wayne Hernandez MD [facility] # [phone]
--- NOTE | 2017-07-10 06:15 | OP ---
PROCEDURE DATE: PREOPERATIVE DIAGNOSIS: Intertrochanteric and subtrochanteric fracture, right hip. POSTOPERATIVE DIAGNOSIS: Intertrochanteric and subtrochanteric fracture, right hip. PROCEDURE: Open reduction and internal fixation with a Biomet Affixus nail, utilizing nail of 180 mm long, lag screw of 85 mm long and 125 degree angle, and one locking screw distally, 34 mm long. DESCRIPTION OF PROCEDURE: In summary, the patient was taken to the OR. Right hip was prepped and draped in sterile fashion. X-ray showed we could reduce the leg with traction and rotation. So, I made a 2 inch incision, 4 cm above the greater trochanter, entered the fascia, penetrated and go through with it. Threaded-tip guidewire down the shaft of the femur and over reamed approximately 7 cm with a 16 mm reamer, then put in the premeasured 180 mm long, 9 mm wide intramedullary alfredo and locked it proximally with a second incision to go into the femoral head and neck along the calcar. Then, once the fracture was impacted, we locked it distally with a 34 mm cortical screw. All 3 wounds were irrigated with normal saline and closed in layers starting with 0-Vicryl for deep layer interrupted, skin with 2-0 nylon interrupted and sterile dressings applied. Patient was taken to recovery room in good condition. Marco A Morales DO
[2017-07-10 06:43] LABS: ARTERIAL BLOOD GAS HEMOGLOBIN 11.2 g/dL (11.7-17.4); ARTERIAL BLOOD GAS O2 CAPACITY 15.4 mL/dl (16-24); ARTERIAL BLOOD GAS O2 CONTENT 15.1 ML/dl (15-23); ARTERIAL BLOOD GAS O2 SAT 97.9 % (95-98); ARTERIAL BLOOD GAS PCO2 29 mm/Hg (35-45); ARTERIAL BLOOD GAS TCO2 18.9 mmol.L (22-28)
[2017-07-10 07:19] LABS: BASO # 0.06 K/mm3 (0.0-2.0); BASO % 0.4 % (0.0-3.0); EOS # 0.1 (0.0-0.7); EOS % 0.6 % (1.5-5.0); GRAN # 11.71 (1.4-6.5); GRAN % 80.5 % (50.0-68.0); HEMOGLOBIN 11.7 g/dL (12.0-16.0); LYMPH # 0.9 (1.2-3.4); LYMPH % 6.5 % (22.0-35.0); MEAN CELL VOLUME 102.3 fl (80.0-105.0); MEAN CORPUSCULAR HEMOGLOBIN 33.4 pg (25.0-35.0); MEAN CORPUSCULAR HGB CONC 32.7 g/dl (31.0-37.0); MEAN PLATELET VOLUME 11.3 fl (7.0-11.0); MONO # 1.7 (0.1-0.6); RBC 3.5 10^6/uL (3.5-6.1); RED CELL DISTRIBUTION WIDTH 24.1 % (11.5-14.5); WHITE BLOOD COUNT 14.5 10^3/ul (4.5-11.0)
[2017-07-10 07:32] LABS: INR 0.97 (0.93-1.08); PROTHROMBIN TIME 11.2 SECONDS (9.4-12.5)
[2017-07-10 07:44] LABS: ALBUMIN 2.8 g/dL (3.0-4.8); ALT/SGPT 47 U/L (7-56); AST/SGOT 116 U/L (14-36); BLOOD UREA NITROGEN 14 mg/dL (7-21); GFR AFRICAN-AMERICAN > 60; GFR NON-AFRICAN AMERICAN > 60
[2017-07-10] MEDS ORDERED: Potassium Chloride 20 mEq ER Tab PO ONE (08:19)
--- NOTE | 2017-07-10 08:35 | RAD ---
HISTORY: post op, low sat COMPARISON: 07/08/2017 FINDINGS: LUNGS: New bilateral ill-defined alveolar opacity. Nonspecific. Possible pneumonia. Possible pulmonary edema. No focal consolidation. PLEURA: No significant pleural effusion identified, no pneumothorax apparent. CARDIOVASCULAR: Normal. OSSEOUS STRUCTURES: No significant abnormalities. VISUALIZED UPPER ABDOMEN: Normal. OTHER FINDINGS: None. IMPRESSION: New bilateral ill-defined alveolar opacity. Rule out pneumonia. Rule out pulmonary edema. Follow-up advised.
--- NOTE | 2017-07-10 10:32 | CP.CCUPN ---
<Javier Mederos - Last Filed: 07/10/17 10:32> CCU Subjective - Physician Review Subjective (Free Text): Patient seen and examined at bedside. Patient has no respiratory symptoms at this time. Denies chest pain, shortness of breath, nausea, vomiting, diarrhea, fever, chills, cough. CCU Objective - Vital Signs / Intake & Output Intake and Output (Last 8hrs): Intake & Output 07/09/17 07/10/17 07/10/17 22:59 06:59 14:59 Intake Total 700 Balance 700 Weight 92 lb Intake: Blood Product 650 Red Blood Cells Cpd As1 325 Lr Unit [id number] Red Blood Cells Cpd As1 325 Lr Unit [id number] Other 50 Red Blood Cells Cpd As1 50 Lr Unit [id number] - Physical Exam Head: Positive for: Atraumatic, Normocephalic Pupils: Positive for: PERRL Extroacular Muscles: Positive for: EOMI Conjunctiva: Positive for: Normal Mouth: Positive for: Moist Mucous Membranes Neck: Positive for: Normal Range of Motion Respiratory/Chest: Positive for: Clear to Auscultation, Decreased Breath Sounds. Negative for: Respiratory Distress, Accessory Muscle Use Cardiovascular: Positive for: Regular Rate and Rhythm, Normal S1, S2. Negative for: Murmurs Abdomen: Positive for: Normal Bowel Sounds. Negative for: Tenderness, Distention, Peritoneal Signs Back: Positive for: Normal Inspection Upper Extremity: Positive for: Other (ecchymosis) Lower Extremity: Positive for: Other (Bandages along right leg) Neurological: Positive for: GCS=15, CN II-XII Intact, Speech Normal Skin: Positive for: Warm, Dry, Normal Color. Negative for: Rashes Psychiatric: Positive for: Alert, Oriented x 3, Normal Insight, Normal Concentration - Medications Active Medications: Active Medications Generic Name Dose Route Start Last Admin Trade Name Freq PRN Reason Stop Dose Admin Acetaminophen 650 mg 07/08/17 17:11 Tylenol 325mg Tab PO Q6H PRN Fever >100.4 F Acetaminophen 650 mg 07/10/17 08:11 Tylenol 325mg Tab PO Q6H PRN Pain, Mild (1-3) Acetaminophen 650 mg 07/10/17 08:12 Tylenol 650 Mg Supp RC Q4H PRN Fever>100.4F,if can't take PO Atorvastatin Calcium 80 mg 07/09/17 17:00 07/09/17 17:26 Lipitor PO Not Given DIN [facility] Azithromycin 500 mg 07/10/17 10:00 Zithromax PO DAILY [facility] Protocol Heparin Sodium/Sodium Chloride 25,000 units in 250 mls @ 7.756 mls/hr 01:30 07/10/17 02:24 Heparin 34136 Units/250ml 1/2 Normal Saline IV 18 units/kg/hr .Q24H PRN 7.756 mls/hr ADJUST RATE PER PROTOCOL Administration Protocol 18 UNITS/KG/HR Ceftriaxone Sodium 1 gm in 100 mls @ 100 mls/hr 07/10/17 10:00 Rocephin 1 Gram Ivpb IVPB DAILY [facility] Protocol Metoprolol Tartrate 12.5 mg 07/08/17 18:00 07/09/17 17:43 Lopressor PO 12.5 mg BID [facility] Administration Morphine Sulfate 2 mg 07/10/17 10:14 Morphine IVP Q4H PRN Pain, severe (8-10) Pantoprazole Sodium 40 mg 07/09/17 10:00 07/09/17 11:50 Protonix Inj IVP 40 mg DAILY [facility] Administration Tramadol HCl 50 mg 07/08/17 17:12 07/10/17 10:09 Ultram PO 50 mg Q8 PRN Administration Pain, moderate (4-7) - Patient Studies Lab Studies: Lab Studies 07/10/17 07/10/17 07/10/17 Range/Units 07:50 06:30 05:50 WBC (4.5-11.0) 10^3/ul RBC (3.5-6.1) 10^6/uL Hgb (12.0-16.0) g/dL Hct (36.0-48.0) % MCV (80.0-105.0) fl MCH (25.0-35.0) pg MCHC (31.0-37.0) g/dl RDW (11.5-14.5) % Plt Count (120.0-450.0) 10^3/uL MPV (7.0-11.0) fl Gran % (50.0-68.0) % Lymph % (Auto) (22.0-35.0) % [place] % (Auto) (1.0-6.0) % Eos % (Auto) (1.5-5.0) % Baso % (Auto) (0.0-3.0) % Gran # (1.4-6.5) Lymph # (Auto) (1.2-3.4) [place] # (Auto) (0.1-0.6) Eos # (Auto) (0.0-0.7) Baso # (Auto) (0.0-2.0) K/mm3 PT (9.4-12.5) SECONDS INR (0.93-1.08) APTT > 400.0 H* (25.1-36.5) Seconds pCO2 29 L (35-45) mm/Hg pO2 81.0 (80-100) mm/Hg HCO3 18.0 L (21-28) mmol/L ABG pH 7.40 (7.35-7.45) ABG Total CO2 18.9 L (22-28) mmol.L ABG O2 Saturation 97.9 (95-98) % ABG O2 Content 15.1 (15-23) ML/dl ABG Base Excess -5.7 L (-2.0-3.0) mmol/L ABG Hemoglobin 11.2 L (11.7-17.4) g/dL ABG Carboxyhemoglobin 1.6 H (0.5-1.5) % POC ABG HHb (Measured) 2.0 (0-5) % ABG Methemoglobin 1.2 (0.0-3.0) % ABG O2 Capacity 15.4 L (16-24) mL/dl Hgb O2 Saturation 95.3 (95.0-98.0) % FiO2 100.0 % Sodium 142 (132-148) mmol/L Potassium 3.1 L (3.6-5.0) mmol/L Chloride 109 H (98-107) mmol/L Carbon Dioxide 21 (21-33) mmol/L Anion Gap 16 (10-20) BUN 14 (7-21) mg/dL Creatinine 0.5 L (0.7-1.2) mg/dl Est GFR ( Amer) > 60 Est GFR (Non-Af Amer) > 60 Random Glucose 56 L (70-110) mg/dL Calcium 8.0 L (8.4-10.5) mg/dL Total Bilirubin 0.6 (0.2-1.3) mg/dL AST 116 H D (14-36) U/L ALT 47 (7-56) U/L Alkaline Phosphatase 400 H (38-126) U/L Total Protein 5.7 L (5.8-8.3) g/dL Albumin 2.8 L (3.0-4.8) g/dL Globulin 2.9 gm/dL Albumin/Globulin Ratio 1.0 L (1.1-1.8) Blood Type Antibody Screen Crossmatch BBK History Checked 07/10/17 07/10/17 07/09/17 Range/Units 05:50 05:50 21:28 WBC 14.5 H D (4.5-11.0) 10^3/ul RBC 3.50 (3.5-6.1) 10^6/uL Hgb 11.7 L (12.0-16.0) g/dL Hct 35.8 L (36.0-48.0) % MCV 102.3 (80.0-105.0) fl MCH 33.4 (25.0-35.0) pg MCHC 32.7 (31.0-37.0) g/dl RDW 24.1 H (11.5-14.5) % Plt Count 243 (120.0-450.0) 10^3/uL MPV 11.3 H (7.0-11.0) fl Gran % 80.5 H (50.0-68.0) % Lymph % (Auto) 6.5 L (22.0-35.0) % [place] % (Auto) 12.0 H (1.0-6.0) % Eos % (Auto) 0.6 L (1.5-5.0) % Baso % (Auto) 0.4 (0.0-3.0) % Gran # 11.71 H (1.4-6.5) Lymph # (Auto) 0.9 L (1.2-3.4) [place] # (Auto) 1.7 H (0.1-0.6) Eos # (Auto) 0.1 (0.0-0.7) Baso # (Auto) 0.06 (0.0-2.0) K/mm3 PT 11.2 (9.4-12.5) SECONDS INR 0.97 (0.93-1.08) APTT (25.1-36.5) Seconds pCO2 (35-45) mm/Hg pO2 (80-100) mm/Hg HCO3 (21-28) mmol/L ABG pH (7.35-7.45) ABG Total CO2 (22-28) mmol.L ABG O2 Saturation (95-98) % ABG O2 Content (15-23) ML/dl ABG Base Excess (-2.0-3.0) mmol/L ABG Hemoglobin (11.7-17.4) g/dL ABG Carboxyhemoglobin (0.5-1.5) % POC ABG HHb (Measured) (0-5) % ABG Methemoglobin (0.0-3.0) % ABG O2 Capacity (16-24) mL/dl Hgb O2 Saturation (95.0-98.0) % FiO2 % Sodium 145 (132-148) mmol/L Potassium 3.6 (3.6-5.0) mmol/L Chloride 116 H (98-107) mmol/L Carbon Dioxide 18 L (21-33) mmol/L Anion Gap 14 (10-20) BUN 16 (7-21) mg/dL Creatinine 0.6 L (0.7-1.2) mg/dl Est GFR ( Amer) > 60 Est GFR (Non-Af Amer) > 60 Random Glucose 86 (70-110) mg/dL Calcium 8.0 L (8.4-10.5) mg/dL Total Bilirubin (0.2-1.3) mg/dL AST (14-36) U/L ALT (7-56) U/L Alkaline Phosphatase (38-126) U/L Total Protein (5.8-8.3) g/dL Albumin (3.0-4.8) g/dL Globulin gm/dL Albumin/Globulin Ratio (1.1-1.8) Blood Type Antibody Screen Crossmatch BBK History Checked 07/09/17 07/09/17 07/09/17 Range/Units 21:28 21:20 05:30 WBC 11.9 H (4.5-11.0) 10^3/ul RBC 3.48 L (3.5-6.1) 10^6/uL Hgb 11.7 L D (12.0-16.0) g/dL Hct 35.9 L (36.0-48.0) % MCV 103.2 D (80.0-105.0) fl MCH 33.6 (25.0-35.0) pg MCHC 32.6 (31.0-37.0) g/dl RDW 23.6 H (11.5-14.5) % Plt Count 227 (120.0-450.0) 10^3/uL MPV 10.8 (7.0-11.0) fl Gran % 80.0 H (50.0-68.0) % Lymph % (Auto) 8.3 L (22.0-35.0) % [place] % (Auto) 11.3 H (1.0-6.0) % Eos % (Auto) 0.1 L (1.5-5.0) % Baso % (Auto) 0.3 (0.0-3.0) % Gran # 9.55 H (1.4-6.5) Lymph # (Auto) 1.0 L (1.2-3.4) [place] # (Auto) 1.4 H (0.1-0.6) Eos # (Auto) 0.0 (0.0-0.7) Baso # (Auto) 0.04 (0.0-2.0) K/mm3 PT (9.4-12.5) SECONDS INR (0.93-1.08) APTT (25.1-36.5) Seconds pCO2 32 L (35-45) mm/Hg pO2 56.0 L (80-100) mm/Hg HCO3 16.9 L (21-28) mmol/L ABG pH 7.33 L (7.35-7.45) ABG Total CO2 17.9 L (22-28) mmol.L ABG O2 Saturation 91.6 L (95-98) % ABG O2 Content 14.2 L (15-23) ML/dl ABG Base Excess -8.1 L (-2.0-3.0) mmol/L ABG Hemoglobin 11.3 L (11.7-17.4) g/dL ABG Carboxyhemoglobin 1.9 H (0.5-1.5) % POC ABG HHb (Measured) 8.2 H (0-5) % ABG Methemoglobin 0.8 (0.0-3.0) % ABG O2 Capacity 15.5 L (16-24) mL/dl Hgb O2 Saturation 89.1 L (95.0-98.0) % FiO2 100.0 % Sodium (132-148) mmol/L Potassium (3.6-5.0) mmol/L Chloride (98-107) mmol/L Carbon Dioxide (21-33) mmol/L Anion Gap (10-20) BUN (7-21) mg/dL Creatinine (0.7-1.2) mg/dl Est GFR ( Amer) Est GFR (Non-Af Amer) Random Glucose (70-110) mg/dL Calcium (8.4-10.5) mg/dL Total Bilirubin (0.2-1.3) mg/dL AST (14-36) U/L ALT (7-56) U/L Alkaline Phosphatase (38-126) U/L Total Protein (5.8-8.3) g/dL Albumin (3.0-4.8) g/dL Globulin gm/dL Albumin/Globulin Ratio (1.1-1.8) Blood Type O POSITIVE Antibody Screen Negative Crossmatch See Detail BBK History Checked Patient has bt Laboratory Results - last 24 hr 07/09/17 07/09/17 07/09/17 05:30 21:20 21:28 WBC 11.9 H RBC 3.48 L Hgb 11.7 L D Hct 35.9 L MCV 103.2 D MCH 33.6 MCHC 32.6 RDW 23.6 H Plt Count 227 MPV 10.8 Gran % 80.0 H Lymph % (Auto) 8.3 L [place] % (Auto) 11.3 H Eos % (Auto) 0.1 L Baso % (Auto) 0.3 Gran # 9.55 H Lymph # (Auto) 1.0 L [place] # (Auto) 1.4 H Eos # (Auto) 0.0 Baso # (Auto) 0.04 PT INR APTT pCO2 32 L pO2 56.0 L HCO3 16.9 L ABG pH 7.33 L ABG Total CO2 17.9 L ABG O2 Saturation 91.6 L ABG O2 Content 14.2 L ABG Base Excess -8.1 L ABG Hemoglobin 11.3 L ABG Carboxyhemoglobin 1.9 H POC ABG HHb (Measured) 8.2 H ABG Methemoglobin 0.8 ABG O2 Capacity 15.5 L Hgb O2 Saturation 89.1 L FiO2 100.0 Sodium Potassium Chloride Carbon Dioxide Anion Gap BUN Creatinine Est GFR ( Amer) Est GFR (Non-Af Amer) Random Glucose Calcium Total Bilirubin AST ALT Alkaline Phosphatase Total Protein Albumin Globulin Albumin/Globulin Ratio Blood Type O POSITIVE Antibody Screen Negative Crossmatch See Detail BBK History Checked Patient has bt 07/09/17 07/10/17 07/10/17 21:28 05:50 05:50 WBC 14.5 H D RBC 3.50 Hgb 11.7 L Hct 35.8 L MCV 102.3 MCH 33.4 MCHC 32.7 RDW 24.1 H Plt Count 243 MPV 11.3 H Gran % 80.5 H Lymph % (Auto) 6.5 L [place] % (Auto) 12.0 H Eos % (Auto) 0.6 L Baso % (Auto) 0.4 Gran # 11.71 H Lymph # (Auto) 0.9 L [place] # (Auto) 1.7 H Eos # (Auto) 0.1 Baso # (Auto) 0.06 PT 11.2 INR 0.97 APTT pCO2 pO2 HCO3 ABG pH ABG Total CO2 ABG O2 Saturation ABG O2 Content ABG Base Excess ABG Hemoglobin ABG Carboxyhemoglobin POC ABG HHb (Measured) ABG Methemoglobin ABG O2 Capacity Hgb O2 Saturation FiO2 Sodium 145 Potassium 3.6 Chloride 116 H Carbon Dioxide 18 L Anion Gap 14 BUN 16 Creatinine 0.6 L Est GFR ( Amer) > 60 Est GFR (Non-Af Amer) > 60 Random Glucose 86 Calcium 8.0 L Total Bilirubin AST ALT Alkaline Phosphatase Total Protein Albumin Globulin Albumin/Globulin Ratio Blood Type Antibody Screen Crossmatch BBK History Checked 07/10/17 07/10/17 07/10/17 05:50 06:30 07:50 WBC RBC Hgb Hct MCV MCH MCHC RDW Plt Count MPV Gran % Lymph % (Auto) [place] % (Auto) Eos % (Auto) Baso % (Auto) Gran # Lymph # (Auto) [place] # (Auto) Eos # (Auto) Baso # (Auto) PT INR APTT > 400.0 H* pCO2 29 L pO2 81.0 HCO3 18.0 L ABG pH 7.40 ABG Total CO2 18.9 L ABG O2 Saturation 97.9 ABG O2 Content 15.1 ABG Base Excess -5.7 L ABG Hemoglobin 11.2 L ABG Carboxyhemoglobin 1.6 H POC ABG HHb (Measured) 2.0 ABG Methemoglobin 1.2 ABG O2 Capacity 15.4 L Hgb O2 Saturation 95.3 FiO2 100.0 Sodium 142 Potassium 3.1 L Chloride 109 H Carbon Dioxide 21 Anion Gap 16 BUN 14 Creatinine 0.5 L Est GFR ( Amer) > 60 Est GFR (Non-Af Amer) > 60 Random Glucose 56 L Calcium 8.0 L Total Bilirubin 0.6 AST 116 H D ALT 47 Alkaline Phosphatase 400 H Total Protein 5.7 L Albumin 2.8 L Globulin 2.9 Albumin/Globulin Ratio 1.0 L Blood Type Antibody Screen Crossmatch BBK History Checked Critical Care Progress Note - Nutrition Nutrition: Nutrition Category Date Time Status Heart Healthy Diet [DIET] Diets 07/09/17 Dinner Ordered NPO Diet [DIET] Diets 07/10/17 Dinner Ordered Assessment/Plan - Assessment and Plan (Free Text) Plan: 77 year old female with a PMH of severe PVD, mesenteric ischemia s/p SMA stent w / history of ischemic colitis s/p R hemicoelctomy s/p ileostomy w/ reversal, CAD s/p NSTEMI and TIA presents with right sided pulmonary embolism s/p right hip ORIF. Patient also found to have left lower lobe consolidation on CT chest, which is likely pneumonia. She will also have PICC line placed. Patient is currently stable and will be transferred to telemetry. Neurological AAOx3 No deficits Cardiovascular Hemodynamically stable ASA and plavix Lipitor and Metoprolol Cardio following PRN morphine for pain Pulm Rocephin and Azithromycin Continue Heparin drip 4L NC Maintain MAP >90% GI Heart healthy diet Protonix Nephro Replenish electrolytes as needed Maintain euvolemia Endo Maintain euglycemia Heme Afebrile, no leukocytosis Maintain normothermia [place], PGY-2 <Iván Hamm - Last Filed: 07/10/17 12:54> CCU Objective - Vital Signs / Intake & Output Vital Signs (Last 4 hours): Vital Signs Pulse BP 07/10/17 10:38 89 114/55 L Intake and Output (Last 8hrs): Intake & Output 07/09/17 07/10/17 07/10/17 22:59 06:59 14:59 Intake Total 700 Balance 700 Weight 92 lb Intake: Blood Product 650 Red Blood Cells Cpd As1 325 Lr Unit [id number] Red Blood Cells Cpd As1 325 Lr Unit [id number] Other 50 Red Blood Cells Cpd As1 50 Lr Unit [id number] - Medications Active Medications: Active Medications Generic Name Dose Route Start Last Admin Trade Name Freq PRN Reason Stop Dose Admin Acetaminophen 650 mg 07/08/17 17:11 Tylenol 325mg Tab PO Q6H PRN Fever >100.4 F Acetaminophen 650 mg 07/10/17 08:11 Tylenol 325mg Tab PO Q6H PRN Pain, Mild (1-3) Acetaminophen 650 mg 07/10/17 08:12 Tylenol 650 Mg Supp RC Q4H PRN Fever>100.4F,if can't take PO Atorvastatin Calcium 80 mg 07/09/17 17:00 07/09/17 17:26 Lipitor PO Not Given DIN [facility] Azithromycin 500 mg 07/10/17 10:00 07/10/17 10:46 Zithromax PO 500 mg DAILY [facility] Administration Protocol Heparin Sodium/Sodium Chloride 25,000 units in 250 mls @ 7.756 mls/hr 01:30 07/10/17 02:24 Heparin 84906 Units/250ml 1/2 Normal Saline IV 18 units/kg/hr .Q24H PRN 7.756 mls/hr ADJUST RATE PER PROTOCOL Administration Protocol 18 UNITS/KG/HR Ceftriaxone Sodium 1 gm in 100 mls @ 100 mls/hr 07/10/17 10:00 07/10/17 10:47 Rocephin 1 Gram Ivpb IVPB 100 mls/hr DAILY [facility] Administration Protocol Metoprolol Tartrate 12.5 mg 07/08/17 18:00 07/10/17 10:38 Lopressor PO 12.5 mg BID [facility] Administration Morphine Sulfate 2 mg 07/10/17 10:14 07/10/17 11:34 Morphine IVP 2 mg Q4H PRN Administration Pain, severe (8-10) Pantoprazole Sodium 40 mg 07/09/17 10:00 07/10/17 10:38 Protonix Inj IVP 40 mg DAILY [facility] Administration Tramadol HCl 50 mg 07/08/17 17:12 07/10/17 10:09 Ultram PO 50 mg Q8 PRN Administration Pain, moderate (4-7) - Patient Studies Lab Studies: Lab Studies 07/10/17 07/10/17 07/10/17 Range/Units 07:50 06:30 05:50 WBC (4.5-11.0) 10^3/ul RBC (3.5-6.1) 10^6/uL Hgb (12.0-16.0) g/dL Hct (36.0-48.0) % MCV (80.0-105.0) fl MCH (25.0-35.0) pg MCHC (31.0-37.0) g/dl RDW (11.5-14.5) % Plt Count (120.0-450.0) 10^3/uL MPV (7.0-11.0) fl Gran % (50.0-68.0) % Lymph % (Auto) (22.0-35.0) % [place] % (Auto) (1.0-6.0) % Eos % (Auto) (1.5-5.0) % Baso % (Auto) (0.0-3.0) % Gran # (1.4-6.5) Lymph # (Auto) (1.2-3.4) [place] # (Auto) (0.1-0.6) Eos # (Auto) (0.0-0.7) Baso # (Auto) (0.0-2.0) K/mm3 PT (9.4-12.5) SECONDS INR (0.93-1.08) APTT > 400.0 H* (25.1-36.5) Seconds pCO2 29 L (35-45) mm/Hg pO2 81.0 (80-100) mm/Hg HCO3 18.0 L (21-28) mmol/L ABG pH 7.40 (7.35-7.45) ABG Total CO2 18.9 L (22-28) mmol.L ABG O2 Saturation 97.9 (95-98) % ABG O2 Content 15.1 (15-23) ML/dl ABG Base Excess -5.7 L (-2.0-3.0) mmol/L ABG Hemoglobin 11.2 L (11.7-17.4) g/dL ABG Carboxyhemoglobin 1.6 H (0.5-1.5) % POC ABG HHb (Measured) 2.0 (0-5) % ABG Methemoglobin 1.2 (0.0-3.0) % ABG O2 Capacity 15.4 L (16-24) mL/dl Hgb O2 Saturation 95.3 (95.0-98.0) % FiO2 100.0 % Sodium 142 (132-148) mmol/L Potassium 3.1 L (3.6-5.0) mmol/L Chloride 109 H (98-107) mmol/L Carbon Dioxide 21 (21-33) mmol/L Anion Gap 16 (10-20) BUN 14 (7-21) mg/dL Creatinine 0.5 L (0.7-1.2) mg/dl Est GFR ( Amer) > 60 Est GFR (Non-Af Amer) > 60 Random Glucose 56 L (70-110) mg/dL Calcium 8.0 L (8.4-10.5) mg/dL Total Bilirubin 0.6 (0.2-1.3) mg/dL AST 116 H D (14-36) U/L ALT 47 (7-56) U/L Alkaline Phosphatase 400 H (38-126) U/L Total Protein 5.7 L (5.8-8.3) g/dL Albumin 2.8 L (3.0-4.8) g/dL Globulin 2.9 gm/dL Albumin/Globulin Ratio 1.0 L (1.1-1.8) Blood Type Antibody Screen Crossmatch BBK History Checked 07/10/17 07/10/17 07/09/17 Range/Units 05:50 05:50 21:28 WBC 14.5 H D (4.5-11.0) 10^3/ul RBC 3.50 (3.5-6.1) 10^6/uL Hgb 11.7 L (12.0-16.0) g/dL Hct 35.8 L (36.0-48.0) % MCV 102.3 (80.0-105.0) fl MCH 33.4 (25.0-35.0) pg MCHC 32.7 (31.0-37.0) g/dl RDW 24.1 H (11.5-14.5) % Plt Count 243 (120.0-450.0) 10^3/uL MPV 11.3 H (7.0-11.0) fl Gran % 80.5 H (50.0-68.0) % Lymph % (Auto) 6.5 L (22.0-35.0) % [place] % (Auto) 12.0 H (1.0-6.0) % Eos % (Auto) 0.6 L (1.5-5.0) % Baso % (Auto) 0.4 (0.0-3.0) % Gran # 11.71 H (1.4-6.5) Lymph # (Auto) 0.9 L (1.2-3.4) [place] # (Auto) 1.7 H (0.1-0.6) Eos # (Auto) 0.1 (0.0-0.7) Baso # (Auto) 0.06 (0.0-2.0) K/mm3 PT 11.2 (9.4-12.5) SECONDS INR 0.97 (0.93-1.08) APTT (25.1-36.5) Seconds pCO2 (35-45) mm/Hg pO2 (80-100) mm/Hg HCO3 (21-28) mmol/L ABG pH (7.35-7.45) ABG Total CO2 (22-28) mmol.L ABG O2 Saturation (95-98) % ABG O2 Content (15-23) ML/dl ABG Base Excess (-2.0-3.0) mmol/L ABG Hemoglobin (11.7-17.4) g/dL ABG Carboxyhemoglobin (0.5-1.5) % POC ABG HHb (Measured) (0-5) % ABG Methemoglobin (0.0-3.0) % ABG O2 Capacity (16-24) mL/dl Hgb O2 Saturation (95.0-98.0) % FiO2 % Sodium 145 (132-148) mmol/L Potassium 3.6 (3.6-5.0) mmol/L Chloride 116 H (98-107) mmol/L Carbon Dioxide 18 L (21-33) mmol/L Anion Gap 14 (10-20) BUN 16 (7-21) mg/dL Creatinine 0.6 L (0.7-1.2) mg/dl Est GFR ( Amer) > 60 Est GFR (Non-Af Amer) > 60 Random Glucose 86 (70-110) mg/dL Calcium 8.0 L (8.4-10.5) mg/dL Total Bilirubin (0.2-1.3) mg/dL AST (14-36) U/L ALT (7-56) U/L Alkaline Phosphatase (38-126) U/L Total Protein (5.8-8.3) g/dL Albumin (3.0-4.8) g/dL Globulin gm/dL Albumin/Globulin Ratio (1.1-1.8) Blood Type Antibody Screen Crossmatch BBK History Checked 07/09/17 07/09/17 07/09/17 Range/Units 21:28 21:20 05:30 WBC 11.9 H (4.5-11.0) 10^3/ul RBC 3.48 L (3.5-6.1) 10^6/uL Hgb 11.7 L D (12.0-16.0) g/dL Hct 35.9 L (36.0-48.0) % MCV 103.2 D (80.0-105.0) fl MCH 33.6 (25.0-35.0) pg MCHC 32.6 (31.0-37.0) g/dl RDW 23.6 H (11.5-14.5) % Plt Count 227 (120.0-450.0) 10^3/uL MPV 10.8 (7.0-11.0) fl Gran % 80.0 H (50.0-68.0) % Lymph % (Auto) 8.3 L (22.0-35.0) % [place] % (Auto) 11.3 H (1.0-6.0) % Eos % (Auto) 0.1 L (1.5-5.0) % Baso % (Auto) 0.3 (0.0-3.0) % Gran # 9.55 H (1.4-6.5) Lymph # (Auto) 1.0 L (1.2-3.4) [place] # (Auto) 1.4 H (0.1-0.6) Eos # (Auto) 0.0 (0.0-0.7) Baso # (Auto) 0.04 (0.0-2.0) K/mm3 PT (9.4-12.5) SECONDS INR (0.93-1.08) APTT (25.1-36.5) Seconds pCO2 32 L (35-45) mm/Hg pO2 56.0 L (80-100) mm/Hg HCO3 16.9 L (21-28) mmol/L ABG pH 7.33 L (7.35-7.45) ABG Total CO2 17.9 L (22-28) mmol.L ABG O2 Saturation 91.6 L (95-98) % ABG O2 Content 14.2 L (15-23) ML/dl ABG Base Excess -8.1 L (-2.0-3.0) mmol/L ABG Hemoglobin 11.3 L (11.7-17.4) g/dL ABG Carboxyhemoglobin 1.9 H (0.5-1.5) % POC ABG HHb (Measured) 8.2 H (0-5) % ABG Methemoglobin 0.8 (0.0-3.0) % ABG O2 Capacity 15.5 L (16-24) mL/dl Hgb O2 Saturation 89.1 L (95.0-98.0) % FiO2 100.0 % Sodium (132-148) mmol/L Potassium (3.6-5.0) mmol/L Chloride (98-107) mmol/L Carbon Dioxide (21-33) mmol/L Anion Gap (10-20) BUN (7-21) mg/dL Creatinine (0.7-1.2) mg/dl Est GFR ( Amer) Est GFR (Non-Af Amer) Random Glucose (70-110) mg/dL Calcium (8.4-10.5) mg/dL Total Bilirubin (0.2-1.3) mg/dL AST (14-36) U/L ALT (7-56) U/L Alkaline Phosphatase (38-126) U/L Total Protein (5.8-8.3) g/dL Albumin (3.0-4.8) g/dL Globulin gm/dL Albumin/Globulin Ratio (1.1-1.8) Blood Type O POSITIVE Antibody Screen Negative Crossmatch See Detail BBK History Checked Patient has bt Laboratory Results - last 24 hr 07/09/17 07/09/17 07/09/17 05:30 21:20 21:28 WBC 11.9 H RBC 3.48 L Hgb 11.7 L D Hct 35.9 L MCV 103.2 D MCH 33.6 MCHC 32.6 RDW 23.6 H Plt Count 227 MPV 10.8 Gran % 80.0 H Lymph % (Auto) 8.3 L [place] % (Auto) 11.3 H Eos % (Auto) 0.1 L Baso % (Auto) 0.3 Gran # 9.55 H Lymph # (Auto) 1.0 L [place] # (Auto) 1.4 H Eos # (Auto) 0.0 Baso # (Auto) 0.04 PT INR APTT pCO2 32 L pO2 56.0 L HCO3 16.9 L ABG pH 7.33 L ABG Total CO2 17.9 L ABG O2 Saturation 91.6 L ABG O2 Content 14.2 L ABG Base Excess -8.1 L ABG Hemoglobin 11.3 L ABG Carboxyhemoglobin 1.9 H POC ABG HHb (Measured) 8.2 H ABG Methemoglobin 0.8 ABG O2 Capacity 15.5 L Hgb O2 Saturation 89.1 L FiO2 100.0 Sodium Potassium Chloride Carbon Dioxide Anion Gap BUN Creatinine Est GFR ( Amer) Est GFR (Non-Af Amer) Random Glucose Calcium Total Bilirubin AST ALT Alkaline Phosphatase Total Protein Albumin Globulin Albumin/Globulin Ratio Blood Type O POSITIVE Antibody Screen Negative Crossmatch See Detail BBK History Checked Patient has bt 07/09/17 07/10/17 07/10/17 21:28 05:50 05:50 WBC 14.5 H D RBC 3.50 Hgb 11.7 L Hct 35.8 L MCV 102.3 MCH 33.4 MCHC 32.7 RDW 24.1 H Plt Count 243 MPV 11.3 H Gran % 80.5 H Lymph % (Auto) 6.5 L [place] % (Auto) 12.0 H Eos % (Auto) 0.6 L Baso % (Auto) 0.4 Gran # 11.71 H Lymph # (Auto) 0.9 L [place] # (Auto) 1.7 H Eos # (Auto) 0.1 Baso # (Auto) 0.06 PT 11.2 INR 0.97 APTT pCO2 pO2 HCO3 ABG pH ABG Total CO2 ABG O2 Saturation ABG O2 Content ABG Base Excess ABG Hemoglobin ABG Carboxyhemoglobin POC ABG HHb (Measured) ABG Methemoglobin ABG O2 Capacity Hgb O2 Saturation FiO2 Sodium 145 Potassium 3.6 Chloride 116 H Carbon Dioxide 18 L Anion Gap 14 BUN 16 Creatinine 0.6 L Est GFR ( Amer) > 60 Est GFR (Non-Af Amer) > 60 Random Glucose 86 Calcium 8.0 L Total Bilirubin AST ALT Alkaline Phosphatase Total Protein Albumin Globulin Albumin/Globulin Ratio Blood Type Antibody Screen Crossmatch BBK History Checked 07/10/17 07/10/17 07/10/17 05:50 06:30 07:50 WBC RBC Hgb Hct MCV MCH MCHC RDW Plt Count MPV Gran % Lymph % (Auto) [place] % (Auto) Eos % (Auto) Baso % (Auto) Gran # Lymph # (Auto) [place] # (Auto) Eos # (Auto) Baso # (Auto) PT INR APTT > 400.0 H* pCO2 29 L pO2 81.0 HCO3 18.0 L ABG pH 7.40 ABG Total CO2 18.9 L ABG O2 Saturation 97.9 ABG O2 Content 15.1 ABG Base Excess -5.7 L ABG Hemoglobin 11.2 L ABG Carboxyhemoglobin 1.6 H POC ABG HHb (Measured) 2.0 ABG Methemoglobin 1.2 ABG O2 Capacity 15.4 L Hgb O2 Saturation 95.3 FiO2 100.0 Sodium 142 Potassium 3.1 L Chloride 109 H Carbon Dioxide 21 Anion Gap 16 BUN 14 Creatinine 0.5 L Est GFR ( Amer) > 60 Est GFR (Non-Af Amer) > 60 Random Glucose 56 L Calcium 8.0 L Total Bilirubin 0.6 AST 116 H D ALT 47 Alkaline Phosphatase 400 H Total Protein 5.7 L Albumin 2.8 L Globulin 2.9 Albumin/Globulin Ratio 1.0 L Blood Type Antibody Screen Crossmatch BBK History Checked Critical Care Progress Note - Nutrition Nutrition: Nutrition Category Date Time Status Heart Healthy Diet [DIET] Diets 07/09/17 Dinner Ordered NPO Diet [DIET] Diets 07/10/17 Dinner Ordered Assessment/Plan - Assessment and Plan (Free Text) Plan: Patient seen and examined on rounds with resident, agree with note with following additions/exceptions: Patient is 77yo female with PMHx of PVD, mesenteric ischemia, s/p SMA stent, w/ history of ischemic colitis s/p R hemicoelctomy s/p ileostomy w/ reversal, CAD presents with right sided pulmonary embolism s/p right hip ORIF. Currently afebrile, HD stable, comfortable on 4LNC, sat 95%, on heparin drip, no major complaints. CT chest with PE and LLL consolidation, on antibiotics. PNA PE s/p ORIF Recommend: - supp o2 as needed, goal sat>90% - panculture, UCx, BCx, Procal - BP control - IVF hydration - Pain control - Heparin drip - Antibiotics, Rocephin, Azithro - FS control - GI ppx - DVT - Stable, transfer to telemetry
[2017-07-10] MEDS: cefTRIAXone 1 gm 1 GM/100 ML BAG IVPB SCH (10:47)
[2017-07-10] MEDS: Morphine 2 mg/ml ISec IVP PRN ×2 (11:34→18:32)
--- NOTE | 2017-07-10 11:36 | PN ---
SUBJECTIVE: The patient was seen and examined at the bedside in the CCU. The patient is s/p ORIF of her right femoral fracture POD #1. She tolerated the procedure and was doing well until several hours postoperatively when she developed respiratory distress. She was noted to be tachypneic and utilizing accessory muscles of respiration. Bedside pulse oximetry was low thus an ABG was obtained which demonstrated hypoxia with a pO2 of 56. She was placed on a NRB mask and sent for a CT chest with contrast which showed pulmonary emboli to the right main, upper and lower pulmonary arteries as well as extensive left pulmonary air space consolidation consistent with pneumonia. She was promptly evaluated by the ICU team and transferred to the CCU, where she was started on a heparin drip. This morning she is sitting up comfortably in her chair and offers no complaints. OBJECTIVE: VITAL SIGNS: Temperature 98.1, pulse 76, blood pressure 126/49, respiratory rate 20, oxygen saturation 97% on 3 liters nasal cannula. GENERAL: Frail, elderly, chronically ill-appearing woman lying in bed in no apparent distress. HEENT: PERRL. EOMI. No scleral icterus. Mild conjunctival pallor is noted. Poor dentition is noted. NECK: No JVD. LUNGS: Decreased breath sounds at the bases with crackles to left lower lobe. CARDIOVASCULAR: Regular rate and rhythm. Normal S1 and S2. ABDOMEN: Normoactive bowel sounds. Soft, nontender, nondistended. EXTREMITIES: No edema. Surgical site to the right hip appears clean, dry, and intact. NEUROLOGIC: Awake, alert and oriented x3. No focal motor deficits. SKIN: Dry with poor turgor and multiple areas of ecchymoses to her b/l upper extremities. LABORATORY DATA: WBC 14.5 with 80% neutrophils, hemoglobin 11.7, hematocrit 36, platelets 243. Sodium 142, potassium 3.2, chloride 109, bicarb 21, BUN 14, creatinine 0.5, glucose 56. ABG demonstrates pH 7.4, pO2 81, pCO2 29, and 100% FiO2. ASSESSMENT: The patient is a 77 year old woman with a past medical history of CAD s/p NSTEMI , severe PVD, history of TIA and history of mesenteric ischemia s/p right hemicolectomy s/p ileostomy with reversal who presented s/p mechanical fall with a resultant right femoral fracture who is now s/p ORIF POD #1 whose hospital course was complicated by development of right pulmonary embolism and left lower lobe pneumonia. PLAN: 1. Acute closed fracture of the right femur s/p ORIF POD #1. Continue with postsurgical care as per Dr. Morales. PT evaluation is pending. Analgesics as per Dr. Morales. Continue bowel regimen. 2. Pulmonary embolism, right-sided. The patient has been started on a heparin drip and will need to be bridged to Coumadin. She will require approximately 3- 6 months of anticoagulation given that this is a provoked PE. Continue with supplemental oxygen as needed and close pulse oximetry monitoring. 3. Left lower lobe pneumonia. Start Ceftriaxone 1 g IV daily and Azithromycin 500 mg p.o. daily. Continue to monitor her fever and leukocytosis. Cultures are pending. 4. CAD s/p NSTEMI. Continue Lipitor 80 mg p.o. daily. 5. History of TIA. Continue Lipitor 80 mg p.o. daily. 6. Severe PVD. Continue Lipitor 80 mg p.o. daily. 7. Anemia of chronic disease. The patient has been transfused a total of 4 units of PRBC's with an appropriate response in her Hb. Continue to monitor H/H daily and transfuse as needed. 8. Prophylaxis. Continue with Protonix 40 mg IV daily for GI prophylaxis. The patient remains on therapeutic heparin thus DVT prophylaxis is not indicated. CODE STATUS: Full code. Elpidio Martinez MD [facility]
--- NOTE | 2017-07-10 11:42 | RAD ---
PROCEDURE: Fluoroscopy up to 1 hour HISTORY: O.R.I.F. RIGHT HIP FX. COMPARISON: TECHNIQUE: Fluoroscopy was provided in the operating room. 78.9 seconds of fluoro time. Four images were submitted FINDINGS: There is a compression screw and alfredo in the right hip with fixation of an intertrochanteric fracture. There are no complicating factors IMPRESSION: As above
--- NOTE | 2017-07-10 16:16 | PN ---
today DATE: 07/10/2017 POSTOP REPORT She is 1-day postop from a right hip fracture. We did a peritroch alfredo on the right hip yesterday on 07/09/2017 and soon after surgery, she developed hypoxia. We had her transferred to ICU where it was found that she had a few pulmonary embolisms. This morning, she looks very good and active and hungry. She wants to eat. Her pain is much less today_, we did the surgery soon ss pssible. and now the medical service we will treat her actively for the pulmonary embolus and once she is stable, bring her to the regular floor for more physical therapy and then, she hoefully to the_ subacute rehab. I will watch the wound even closer. because of a therapeutic anticoagulation is going to be given. Macro A Morales DO [facility]
[2017-07-10 22:52] LABS: BASO # 0.02 K/mm3 (0.0-2.0); BASO % 0.2 % (0.0-3.0); EOS % 0.2 % (1.5-5.0); GRAN # 9.74 (1.4-6.5); GRAN % 76.3 % (50.0-68.0); HEMOGLOBIN 9.4 g/dL (12.0-16.0); LYMPH % 7.5 % (22.0-35.0); MEAN CELL VOLUME 100.3 fl (80.0-105.0); MEAN CORPUSCULAR HEMOGLOBIN 32.9 pg (25.0-35.0); MEAN CORPUSCULAR HGB CONC 32.8 g/dl (31.0-37.0); MEAN PLATELET VOLUME 10.7 fl (7.0-11.0); MONO % 15.8 % (1.0-6.0); RBC 2.86 10^6/uL (3.5-6.1); RED CELL DISTRIBUTION WIDTH 22.9 % (11.5-14.5); WHITE BLOOD COUNT 12.8 10^3/ul (4.5-11.0)
[2017-07-11] MEDS: Morphine 2 mg/ml ISec IVP PRN ×4 (01:02→20:55)
[2017-07-11 07:54] LABS: BASO # 0.02 K/mm3 (0.0-2.0); BASO % 0.2 % (0.0-3.0); EOS # 0.1 (0.0-0.7); EOS % 1.2 % (1.5-5.0); GRAN # 8.61 (1.4-6.5); GRAN % 76.5 % (50.0-68.0); HEMOGLOBIN 9.1 g/dL (12.0-16.0); LYMPH # 0.8 (1.2-3.4); LYMPH % 7.4 % (22.0-35.0); MEAN CELL VOLUME 99.3 fl (80.0-105.0); MEAN CORPUSCULAR HEMOGLOBIN 33.1 pg (25.0-35.0); MEAN CORPUSCULAR HGB CONC 33.3 g/dl (31.0-37.0); MEAN PLATELET VOLUME 10.3 fl (7.0-11.0); MONO # 1.7 (0.1-0.6); MONO % 14.7 % (1.0-6.0); RBC 2.75 10^6/uL (3.5-6.1); RED CELL DISTRIBUTION WIDTH 22.3 % (11.5-14.5); WHITE BLOOD COUNT 11.3 10^3/ul (4.5-11.0)
[2017-07-11 08:08] LABS: ALB/GLOB RATIO 0.9 (1.1-1.8); ALBUMIN 2.2 g/dL (3.0-4.8); ALT/SGPT 45 U/L (7-56); AST/SGOT 92 U/L (14-36); BLOOD UREA NITROGEN 20 mg/dL (7-21); GFR AFRICAN-AMERICAN > 60; GFR NON-AFRICAN AMERICAN > 60
[2017-07-11 08:12] LABS: INR 1.77 (0.93-1.08); PROTHROMBIN TIME 20.6 SECONDS (9.4-12.5)
[2017-07-11] MEDS: cefTRIAXone 1 gm 1 GM/100 ML BAG IVPB SCH (09:28)
--- NOTE | 2017-07-11 13:34 | PN ---
DATE: SUBJECTIVE: The patient is a 77-year-old female in room 129, bed 2. She is sitting in bed, eating breakfast. She has no complaints and there have been no acute events overnight. PHYSICAL EXAMINATION: VITAL SIGNS: Temperature of 98.6, pulse rate of 72, blood pressure of 108/51, respiratory rate of 18 with an O2 saturation of 96% on nasal cannula. HEENT: PERRLA. EOMI. There is no icterus. LUNGS: Clear to auscultation and percussion bilaterally. HEART: Irregular rate and rhythm with no murmurs, rubs, or gallops. ABDOMEN: Soft. It is nontender. There are no masses. EXTREMITIES: Show patient is status post surgery of right hip fracture. NEUROLOGIC: There are no focal motor deficits. LABORATORY DATA: Lab values at this time are CBC with a WBC of 11.3, hemoglobin and hematocrit of 9.1 and 27.3. Chemistry is essentially normal, glucose is 116. AST is 92, it was up as high as 116; ALT is 45 which is normal. CURRENT DIAGNOSES: Right hip fracture, skin tear, arm contusion, abnormal EKG. PLAN: We will continue current treatment. Place the patient in a rehab facility. Spenser Martinez MD
[2017-07-11 20:46] LABS: BASO # 0.02 K/mm3 (0.0-2.0); BASO % 0.2 % (0.0-3.0); EOS # 0.1 (0.0-0.7); EOS % 0.9 % (1.5-5.0); GRAN # 8.57 (1.4-6.5); GRAN % 77.9 % (50.0-68.0); LYMPH # 0.5 (1.2-3.4); LYMPH % 4.7 % (22.0-35.0); MEAN CORPUSCULAR HEMOGLOBIN 33.3 pg (25.0-35.0); MEAN CORPUSCULAR HGB CONC 33.3 g/dl (31.0-37.0); MEAN PLATELET VOLUME 11.2 fl (7.0-11.0); MONO # 1.8 (0.1-0.6); MONO % 16.3 % (1.0-6.0); PLATELET COUNT 221 10^3/uL (120.0-450.0); RED CELL DISTRIBUTION WIDTH 21.8 % (11.5-14.5)
[2017-07-11 21:12] LABS: NEUTROPHIL 91 % (50.0-70.0)
[2017-07-11 21:13] LABS: ANISOCYTOSIS SLIGHT; EOSINOPHIL 1 % (0.0-3.0); HYPOCHROMIA SLIGHT; LYMPHOCYTE 2 % (22.0-35.0); MONOCYTE 6 % (1.0-6.0); PLATELET ESTIMATE NORMAL (NORMAL); POLYCHROMASIA SLIGHT
[2017-07-12] MEDS: Morphine 2 mg/ml ISec IVP PRN ×4 (04:54→22:17)
[2017-07-12] MEDS: Pantoprazole 40 mg EC Tab PO SCH (07:45)
[2017-07-12 08:19] LABS: BASO # 0.02 K/mm3 (0.0-2.0); BASO % 0.2 % (0.0-3.0); EOS # 0.2 (0.0-0.7); EOS % 1.6 % (1.5-5.0); GRAN % 76.3 % (50.0-68.0); HEMOGLOBIN 9.2 g/dL (12.0-16.0); LYMPH # 0.7 (1.2-3.4); LYMPH % 6.4 % (22.0-35.0); MEAN CELL VOLUME 101.4 fl (80.0-105.0); MEAN CORPUSCULAR HEMOGLOBIN 32.9 pg (25.0-35.0); MEAN CORPUSCULAR HGB CONC 32.4 g/dl (31.0-37.0); MEAN PLATELET VOLUME 11.5 fl (7.0-11.0); MONO # 1.6 (0.1-0.6); MONO % 15.5 % (1.0-6.0); RBC 2.8 10^6/uL (3.5-6.1); RED CELL DISTRIBUTION WIDTH 21.1 % (11.5-14.5); WHITE BLOOD COUNT 10.5 10^3/ul (4.5-11.0)
[2017-07-12 08:38] LABS: PARTIAL THROMBOPLASTIN TIME 40.1 Seconds (25.1-36.5); PROTHROMBIN TIME 72.2 SECONDS (9.4-12.5)
[2017-07-12 08:39] LABS: INR 6.05 (0.93-1.08)
[2017-07-12 09:01] LABS: ALB/GLOB RATIO 0.8 (1.1-1.8); ALBUMIN 2.4 g/dL (3.0-4.8); ALT/SGPT 52 U/L (7-56); AST/SGOT 120 U/L (14-36); BLOOD UREA NITROGEN 20 mg/dL (7-21); CALCIUM 8.6 mg/dL (8.4-10.5); GFR AFRICAN-AMERICAN > 60; GFR NON-AFRICAN AMERICAN > 60
[2017-07-12] MEDS: cefTRIAXone 1 gm 1 GM/100 ML BAG IVPB SCH (09:10)
--- NOTE | 2017-07-12 11:38 | PN ---
SUBJECTIVE: The patient was seen and examined at bedside in the CCU. No acute events overnight. She remains afebrile, hemodynamically stable. This morning she states she feels okay and is frustrated that she remains in the hospital and overall offers no complaints. OBJECTIVE VITAL SIGNS: Temperature 98.1, pulse 93, blood pressure 124/80, respiratory rate 20. Oxygen saturation 93% on room air. GENERAL: Frail, elderly, chronically ill-appearing woman, lying in bed in no apparent distress. HEENT: PERRL. EOMI. No scleral icterus. Mild conjunctival pallor is noted. Poor dentition is noted. NECK: No JVD. LUNGS: Decreased breath sounds at the bases with crackles to the left lower lobe. CARDIOVASCULAR: Regular rate and rhythm. Normal S1 and S2. ABDOMEN: Normoactive bowel sounds. Soft, nontender, nondistended. EXTREMITIES: No edema. Surgical site appears clean, dry and intact. NEUROLOGIC: Awake, alert, and oriented x3. No focal motor deficits. SKIN: Dry with poor turgor and multiple areas of ecchymoses to her bilateral upper extremities. LABORATORY DATA: WBC 10.5 with 76% neutrophils, hemoglobin 9, hematocrit 28, and platelets 248, 000. Chemistry pending. INR 6.05. ASSESSMENT: The patient is a 77 year old woman with a past medical history of CAD s/p NSTEMI , severe PVD, history of TIA, history of mesenteric ischemia s/p right hemicolectomy s/p ileostomy with reversal who presented s/p mechanical fall with the resultant right femoral fracture who is now s/p ORIF POD #3 and whose hospital course was complicated by development of right pulmonary embolism and left lower lobe pneumonia. PLAN 1. Acute closed fracture of the right femur s/p ORIF POD #3. Continue with postsurgical care as per Dr. Morales. PT evaluation is pending. Analgesics as per Dr. Morales. Continue bowel regimen. 2. Pulmonary embolism, acute, right sided. Patient remains on heparin drip and is being bridged with Coumadin. INR noted to be supratherapeutic at 6.05. We will stop Coumadin and continue to monitor INR daily and resume at lower dose when INR in therapeutic range of 2-3. She will require approximately 3-6 months of anticoagulation therapy given that this was a provoked PE. Continue with supplemental oxygen as needed and close pulse oximetry monitoring. 3. Left lower lobe pneumonia. Patient remains afebrile and with improving leukocytosis. Continue Ceftriaxone 1 g IV daily and Azithromycin 500 mg p.o. daily. 4. CAD s/p NSTEMI. Continue Lipitor 80 mg p.o. daily. 5. History of TIA. Continue Lipitor 80 mg p.o. daily. 6. Severe PVD. Continue Lipitor 80 mg p.o. daily. 7. Anemia of chronic disease. The patient has been transfused 4 units since admission and labs demonstrate stable H/H. We will continue to monitor CBC daily. 8. Prophylaxis. Continue with Protonix 40 mg IV daily for GI prophylaxis. The patient remains on therapeutic heparin thus DVT prophylaxis is not indicated. CODE STATUS: Full code. Elpidio Martinez MD [facility]
[2017-07-13] MEDS: Morphine 2 mg/ml ISec IVP PRN ×4 (02:38→22:43)
[2017-07-13 06:06] LABS: BASO # 0.02 K/mm3 (0.0-2.0); BASO % 0.2 % (0.0-3.0); EOS # 0.3 (0.0-0.7); EOS % 3.5 % (1.5-5.0); GRAN # 7.1 (1.4-6.5); GRAN % 72.5 % (50.0-68.0); HEMOGLOBIN 8.7 g/dL (12.0-16.0); LYMPH # 0.6 (1.2-3.4); LYMPH % 5.6 % (22.0-35.0); MEAN CELL VOLUME 101.5 fl (80.0-105.0); MEAN CORPUSCULAR HEMOGLOBIN 32.8 pg (25.0-35.0); MEAN CORPUSCULAR HGB CONC 32.3 g/dl (31.0-37.0); MONO # 1.8 (0.1-0.6); MONO % 18.2 % (1.0-6.0); RBC 2.65 10^6/uL (3.5-6.1); RED CELL DISTRIBUTION WIDTH 20.5 % (11.5-14.5); WHITE BLOOD COUNT 9.8 10^3/ul (4.5-11.0)
[2017-07-13 06:23] LABS: ALB/GLOB RATIO 0.8 (1.1-1.8); ALBUMIN 2.4 g/dL (3.0-4.8); ALT/SGPT 57 U/L (7-56); AST/SGOT 141 U/L (14-36); BLOOD UREA NITROGEN 17 mg/dL (7-21); CALCIUM 8.4 mg/dL (8.4-10.5); GFR AFRICAN-AMERICAN > 60; GFR NON-AFRICAN AMERICAN > 60
[2017-07-13 10:43] LABS: PROTHROMBIN TIME 89.4 SECONDS (9.4-12.5)
[2017-07-13 10:44] LABS: PARTIAL THROMBOPLASTIN TIME 79.8 Seconds (25.1-36.5)
[2017-07-13 10:45] LABS: INR 7.46 (0.93-1.08)
[2017-07-13] MEDS: Pantoprazole 40 mg EC Tab PO SCH (11:05)
[2017-07-13] MEDS: levoFLOXacin 500 MG TAB PO SCH (11:05)
[2017-07-13] MEDS: cefTRIAXone 1 gm 1 GM/100 ML BAG IVPB SCH (11:45)
--- NOTE | 2017-07-13 13:23 | PN ---
DATE: UPDATE REPORT LOCATION: 129, bed 2, ICU. SUBJECTIVE: A 77-year-old female who underwent operative fixation of her right hip fracture on 06/29/2017. She is doing well with the hip. She is in ICU for medical reasons, but she has a tendency to have pain all over her body and it is very sensitive to touch as if she has had a mild case of neuropathy and the fracture is well fixed with an intramedullary alfredo and I have to be careful we do not overmedicate her because she is more uncomfortable that pain from the fracture, where you touch any part of her body, she is very sensitive, so we have to be careful we do not overmedicate her with narcotics. Once she gets medically better, we could progress with physical therapy and up out of bed. Otherwise, the wounds look well in that there are no signs of hematoma because of all the blood thinner she is getting. Marco A Moraels DO
--- NOTE | 2017-07-13 13:25 | PN ---
SUBJECTIVE: The patient was seen and examined at the bedside in the CCU. No acute events overnight. She remains afebrile and hemodynamically stable. This morning she states she feels okay but does endorse some pain at her right hip and states it is controlled with current analgesic regimen. Otherwise, she offers no complaints. OBJECTIVE VITAL SIGNS: Temperature 98.7, pulse 89, blood pressure 113/51, respiratory rate 20, and oxygen saturation 98% on 2 liters nasal cannula. GENERAL: Frail, elderly, chronically ill-appearing woman, lying in bed in no apparent distress. HEENT: PERRL. EOMI. No scleral icterus. Mild conjunctival pallor is noted. Poor dentition is noted. NECK: No JVD. LUNGS: Decreased breath sounds at the bases with crackles to the left lower lobe. CARDIOVASCULAR: Regular rate and rhythm. Normal S1 and S2. ABDOMEN: Normoactive bowel sounds. Soft, nontender, nondistended. EXTREMITIES: No edema. Surgical site appears clean, dry and intact. NEUROLOGIC: Awake, alert, and oriented x3. No focal motor deficits. SKIN: Dry with poor turgor and multiple areas of ecchymoses to her bilateral upper extremities. LABORATORY DATA: WBC 9.8 with 72% neutrophils, hemoglobin 8.7, hematocrit 27, and platelets 262, 000. Chemistry reviewed and unremarkable. AST 141, ALT 57, alkaline phosphate 539, T. bili 0.9. INR 7.46. ASSESSMENT: The patient is a 77 year old woman with a past medical history of CAD s/p NSTEMI , severe PVD, history of TIA and history of mesenteric ischemia s/p right hemicolectomy s/p ileostomy with reversal who presented s/p mechanical fall with resultant right femoral fracture who is now s/p ORIF POD #4 and whose hospital course was complicated by development of right pulmonary embolism and left lower lobe pneumonia. PLAN 1. Acute closed fracture of the right femur s/p ORIF POD #4. Continue with postsurgical care as per Dr. Morales. PT evaluation is pending. Continue with Morphine 2 mg IV q. 4 hours p.r.n. pain. 2. Pulmonary embolism, acute, right sided. Patient remains on heparin drip and is being bridged with Coumadin. INR noted to be supratherapeutic at 7.46. We will administer Vitamin K 5 mg p.o. x1. Coumadin remains on hold. We will continue to monitor INR daily with goal 2-3. She will require 6 months of anticoagulation therapy. Continue with supplemental oxygen and pulse oximetry monitoring. 3. Left lower lobe pneumonia. Patient remains afebrile and with improving leukocytosis. We will change her antibiotics to Levaquin 500 mg p.o. daily to complete a 10 day course (today is day #4 of antibiotics). 4. CAD s/p NSTEMI. Continue Lipitor 80 mg p.o. daily. 5. History of TIA. Continue Lipitor 80 mg p.o. daily. 6. Severe PVD. Continue Lipitor 80 mg p.o. daily. 7. Anemia of chronic disease. The patient has a baseline Hb of 8-9 and appears to be at her baseline. We will continue to monitor her CBC daily and transfuse as needed. 8. Prophylaxis. Continue Protonix 40 mg IV daily for GI prophylaxis. The patient remains on therapeutic heparin thus DVT prophylaxis is not indicated. CODE STATUS: Full code. Elpidio Martinez MD [facility]
[2017-07-13] MEDS: Heparin25000 units/250ml 1/2NS 25,000 UNITS/250 ML BAG IV PRN (17:36)
[2017-07-14] MEDS: Morphine 2 mg/ml ISec IVP PRN ×2 (04:52→11:14)
[2017-07-14 06:57] LABS: BASO # 0.05 K/mm3 (0.0-2.0); BASO % 0.5 % (0.0-3.0); EOS # 0.2 (0.0-0.7); EOS % 2.3 % (1.5-5.0); GRAN # 6.69 (1.4-6.5); GRAN % 67.9 % (50.0-68.0); HEMOGLOBIN 8.5 g/dL (12.0-16.0); LYMPH # 0.5 (1.2-3.4); LYMPH % 5.3 % (22.0-35.0); MEAN CELL VOLUME 101.2 fl (80.0-105.0); MEAN CORPUSCULAR HEMOGLOBIN 32.8 pg (25.0-35.0); MEAN CORPUSCULAR HGB CONC 32.4 g/dl (31.0-37.0); MEAN PLATELET VOLUME 11.9 fl (7.0-11.0); MONO # 2.4 (0.1-0.6); RBC 2.59 10^6/uL (3.5-6.1); RED CELL DISTRIBUTION WIDTH 19.6 % (11.5-14.5); WHITE BLOOD COUNT 9.9 10^3/ul (4.5-11.0)
[2017-07-14 07:21] LABS: INR 2.09 (0.93-1.08); PROTHROMBIN TIME 24.3 SECONDS (9.4-12.5)
[2017-07-14 07:39] LABS: ALB/GLOB RATIO 0.8 (1.1-1.8); ALBUMIN 2.3 g/dL (3.0-4.8); ALT/SGPT 50 U/L (7-56); AST/SGOT 107 U/L (14-36); BLOOD UREA NITROGEN 16 mg/dL (7-21); CALCIUM 8.5 mg/dL (8.4-10.5); GFR AFRICAN-AMERICAN > 60; GFR NON-AFRICAN AMERICAN > 60
[2017-07-14] MEDS: Pantoprazole 40 mg EC Tab PO SCH (09:27)
[2017-07-14] MEDS: levoFLOXacin 500 MG TAB PO SCH (09:27)
--- NOTE | 2017-07-14 13:30 | PN ---
SUBJECTIVE: The patient was seen and examined at the bedside in the CCU. No acute events overnight. She remains afebrile and hemodynamically stable. This morning she feels okay and offers no complaints. PHYSICAL EXAMINATION: VITAL SIGNS: Temperature 98.4, pulse 84, blood pressure 116/51, respiratory rate 18, and oxygen saturation 98% on 2 liters nasal cannula. GENERAL: Frail, elderly, chronically ill-appearing woman, lying in bed in no apparent distress. HEENT: PERRL. EOMI. No scleral icterus. Mild conjunctival pallor is noted. Poor dentition is noted. NECK: No JVD. LUNGS: Decreased breath sounds at the bases with crackles to the left lower lobe. CARDIOVASCULAR: Regular rate and rhythm. Normal S1 and S2. ABDOMEN: Normoactive bowel sounds. Soft, nontender, nondistended. EXTREMITIES: No edema. Surgical site appears clean, dry and intact. NEUROLOGIC: Awake, alert, and oriented x3. No focal motor deficits. SKIN: Multiple areas of ecchymoses to her bilateral upper extremities. LABORATORY DATA: WBC 9.9, hemoglobin 8.5, hematocrit 26, platelets 305. Chemistry reviewed and unremarkable. INR 2.09. ASSESSMENT: The patient is a 77 year old woman with a past medical history of CAD s/p NSTEMI , severe PVD, history of TIA and history of mesenteric ischemia s/p right hemicolectomy s/p ileostomy with reversal who presented s/p mechanical fall with resultant right femoral fracture who is now s/p ORIF POD #5 and whose hospital course was complicated by development of right pulmonary embolism and left lower lobe pneumonia. PLAN: 1. Acute closed fracture of the right femur s/p ORIF POD #5. Continue with postsurgical care as per Dr. Morales. PT evaluation is pending. Continue morphine 2 mg IV q. 4 hours p.r.n. pain. 2. Pulmonary embolism, acute, right-sided. The patient remains on heparin drip and is being bridged with Coumadin. INR in therapeutic range at 2.09. We will resume Coumadin 4 mg p.o. daily with goal INR of 2-3. She will require 6 months of anticoagulation therapy. Continue with supplemental oxygen and pulse oximetry monitoring. 3. Left lower lobe pneumonia. Continue Levaquin 500 mg p.o. daily to complete a 10-day course (today is day #5 of antibiotics). 4. CAD s/p NSTEMI. Continue Lipitor 80 mg p.o. daily. 5. History of TIA. Continue Lipitor 80 mg p.o. daily. 6. Severe PVD. Continue Lipitor 80 mg p.o. daily. 7. Anemia of chronic disease. H/H remains at baseline (Hb 8-9). We will continue to monitor her CBC daily and transfuse as needed. 8. Prophylaxis. Continue Protonix for GI prophylaxis. The patient remains on therapeutic heparin thus DVT prophylaxis is not indicated. CODE STATUS: Full code. Elpidio Martinez MD [facility]
[2017-07-14 19:56] VITALS: RESP 45; O2SAT 99
[2017-07-14 19:58] VITALS: TEMP 99.3
[2017-07-15] MEDS: Morphine 2 mg/ml ISec IVP PRN ×2 (02:07→07:11)
[2017-07-15 04:33] VITALS: PULSE 73
[2017-07-15 06:43] LABS: BASO # 0.06 K/mm3 (0.0-2.0); BASO % 0.6 % (0.0-3.0); EOS # 0.2 (0.0-0.7); GRAN # 6.08 (1.4-6.5); GRAN % 64.3 % (50.0-68.0); HEMOGLOBIN 8.5 g/dL (12.0-16.0); LYMPH # 0.7 (1.2-3.4); LYMPH % 7.4 % (22.0-35.0); MEAN CELL VOLUME 101.1 fl (80.0-105.0); MEAN CORPUSCULAR HEMOGLOBIN 32.6 pg (25.0-35.0); MEAN CORPUSCULAR HGB CONC 32.2 g/dl (31.0-37.0); MEAN PLATELET VOLUME 11.3 fl (7.0-11.0); MONO # 2.4 (0.1-0.6); MONO % 25.7 % (1.0-6.0); PLATELET COUNT 354 10^3/uL (120.0-450.0); RBC 2.61 10^6/uL (3.5-6.1); RED CELL DISTRIBUTION WIDTH 19.5 % (11.5-14.5); WHITE BLOOD COUNT 9.5 10^3/ul (4.5-11.0)
[2017-07-15 07:00] LABS: INR 1.75 (0.93-1.08); PROTHROMBIN TIME 20.3 SECONDS (9.4-12.5)
[2017-07-15 07:10] LABS: IRON 31 ug/dL (45-180)
[2017-07-15 07:16] LABS: ALB/GLOB RATIO 0.8 (1.1-1.8); ALBUMIN 2.3 g/dL (3.0-4.8); ALT/SGPT 57 U/L (7-56); AST/SGOT 105 U/L (14-36); BLOOD UREA NITROGEN 14 mg/dL (7-21); CALCIUM 8.3 mg/dL (8.4-10.5); GFR AFRICAN-AMERICAN > 60; GFR NON-AFRICAN AMERICAN > 60
[2017-07-15 07:19] LABS: % IRON SATURATION 14 % (20-55); TOTAL IRON BINDING CAPACITY 221 ug/dL (265-497)
[2017-07-15] MEDS: Pantoprazole 40 mg EC Tab PO SCH (08:21)
[2017-07-15 09:06] LABS: ATYPICAL LYMPHOCYTE 3 % (0.0-0.0); LYMPHOCYTE 6 % (22.0-35.0); MONOCYTE 17 % (1.0-6.0); NEUTROPHIL 74 % (50.0-70.0); PLATELET ESTIMATE NORMAL (NORMAL)
[2017-07-15 09:07] LABS: ANISOCYTOSIS 1+; HYPOCHROMIA 1+; LARGE PLATELETS PRESENT; OVALOCYTES SLIGHT; POLYCHROMASIA SLIGHT
--- NOTE | 2017-07-15 09:55 | PN ---
SUBJECTIVE: The patient was seen and examined at the bedside in the CCU. No acute events overnight. She remains afebrile and hemodynamically stable. This morning, she feels okay and offers no complaints. PHYSICAL EXAMINATION VITAL SIGNS: Temperature 98.4, pulse 73, blood pressure 110/66, respiratory rate 20, oxygen saturation 98% on 2 liters nasal cannula. GENERAL: Frail, elderly, chronically ill-appearing woman, lying in bed in no apparent distress. HEENT: PERRL. EOMI. No scleral icterus. Mild conjunctival pallor is noted. Poor dentition is noted. NECK: No JVD. LUNGS: Decreased breath sounds at bases with improving crackles to the left lower lobe. CARDIOVASCULAR: Regular rate and rhythm. Normal S1 and S2. ABDOMEN: Normoactive bowel sounds. Soft, nontender, nondistended. EXTREMITIES: No edema. Surgical site appears clean, dry and intact. NEUROLOGIC: Awake, alert, and oriented x3. No focal motor deficits. SKIN: Multiple areas of ecchymoses to bilateral upper extremities. LABORATORY DATA: WBC 9.5, hemoglobin 8.5, hematocrit 26, platelets 354,000. Chemistry reviewed and unremarkable. INR 1.75. ASSESSMENT: The patient is a 77 year old woman with a past medical history of CAD s/p NSTEMI , severe PVD, history of TIA and history of mesenteric ischemia s/p right hemicolectomy s/p ileostomy with reversal who presented s/p mechanical fall with resultant right femoral fracture who is now s/p ORIF POD #6 and whose hospital course was complicated by development of right pulmonary embolism and left lower lobe pneumonia. PLAN 1. Acute closed fracture of the right femur s/p ORIF POD #6. Continue with postsurgical care as per Dr. Morales. Continue Morphine 2 mg IV q. 4 hours p.r.n. pain. PT evaluation appreciated and subacute rehab has been recommended. 2. Pulmonary embolism, acute, right sided. Continue Coumadin 4 mg p.o. daily with goal INR 2-3. She will require 6 months of anticoagulation therapy. Continue supplemental oxygen and pulse oximetry monitoring. 3. Left lower lobe pneumonia. Continue Levaquin 500 mg p.o. daily to complete a 10 day course (today is day #6 of antibiotics). 4. CAD s/p NSTEMI. Continue Lipitor 80 mg p.o. daily. 5. History of TIA. Continue Lipitor 80 mg p.o. daily. 6. Severe PVD. Continue Lipitor 80 mg p.o. daily. 7. Anemia of chronic disease. H/H remains at baseline (Hb 8-9) Continue to monitor her CBC daily and transfuse as needed. 8. Prophylaxis. Continue Protonix for GI prophylaxis. The patient remains on Coumadin thus DVT prophylaxis is not indicated. 9. Disposition. She is pending discharge to subacute rehab and is medically cleared for discharge. CODE STATUS: Full code. Elpidio Martinez MD MTDD
[2017-07-15] MEDS: levoFLOXacin 500 MG TAB PO SCH (10:19)
[2017-07-15 10:22] VITALS: BP 107/43
[2017-07-15 13:21] LABS: FOLATE 5.8 ng/mL
--- NOTE | 2017-07-15 14:47 | PN ---
DATE: 07/15/2017 UPDATED REPORT The patient is postop right hip fracture with biomet affixis im alfredo, had medical complication with pulmonary embolism, but doing quite well. She is still on therapeutic anticoagulation. She was up out of bed yesterday and tolerated that well and she likes to keep the pillow under her right knee, but I tried to discourage her because she is developing a knee flexion contracture and if that happens, she will be not able to ambulate well, so I have discouraged her from bending the knee and put the pillow under the calf, not the knee. The wound is dry. We will remove the sutuures next wk.. As the patient is almost a week postop from 07/09/2017, continue medical service and therapy.i will be away until 07/19/17 Marco A Morales DO [facility]
--- NOTE | 2017-07-16 08:49 | DS ---
ADMITTING DIAGNOSIS: Acute right femoral fracture status post mechanical fall. DISCHARGE DIAGNOSES: Right femoral fracture s/p ORIF and pulmonary embolism (provoked). SECONDARY DIAGNOSES: Left lower lobe pneumonia (resolved), CAD s/p NSTEMI, history of transient ischemic attack, history of mesenteric ischemia s/p right hemicolectomy s/p ileostomy with reversal, anemia of chronic disease and severe PVD. CONSULTATIONS: Dr. Olivera (Cardiology) and Dr. Morales (Orthopedic Surgery). IMAGING STUDIES: 1. X-ray of right hip demonstrated acute proximal right femoral fracture. 2. CT of the chest with IV contrast demonstrated right pulmonary emboli and left lower lobe consolidation consistent with pneumonia. PROCEDURES: ORIF of acute right femoral fracture. HISTORY OF PRESENT ILLNESS: The patient is a 77 year old woman with a past medical history of severe PVD, mesenteric ischemic s/p SMA stent with history of ischemic colitis s/p right hemicolectomy s/p ileostomy with reversal, CAD s/p NSTEMI and history of TIA who presented to [facility] ED for evaluation of acute onset of right hip pain after a mechanical fall. The patient reports being in her usual state of health until the day of presentation to the ED when she tripped and fell in her right side. She noted immediate onset of severe right hip pain and inability to ambulate or bear weight. She crawled approximately 10 feet to the phone and called the EMS. She was subsequently brought to [facility] ED for evaluation where workup demonstrated an acute proximal right femoral fracture. She was evaluated by Dr. Morales of Orthopedic Surgery and after cardiac clearance, she was taken to the OR for ORIF. HOSPITAL COURSE: The patient underwent successful ORIF of her acute right femoral fracture. She was transferred to the remote telemetry dale for continued postoperative care. She was maintained on Lovenox 30 mg SC daily for DVT prophylaxis. Approximately 12 hours after her orthopedic procedure, she was noted to develop mild respiratory distress and was found to be tachypneic and hypoxic. A stat ABG demonstrated significant hypoxia with a pO2 of 56. She was placed on a nonrebreather mask and sent for a stat CT of the chest which demonstrated a left lower lobe pneumonia and a right pulmonary embolism. She was subsequently transferred to the CCU for continued care of left lower pneumonia and acute right pulmonary embolism. Upon transfer to the CCU, she was started on Ceftriaxone 1 g IV daily and Azithromycin 500 mg IV daily, as well as a heparin drip. She was bridged to Coumadin with a target INR of 2-3. Over the following 36 hours she was noted to demonstrate significant improvement in her respiratory status and had resolution of her leukocytosis. She was eventually changed to Levaquin 500 mg p.o. daily and scheduled to complete a 10 day course of antibiotics. She was also bridged to Coumadin 4 mg p.o. daily after 3 days of dual anticoagulation therapy with a goal INR of 2-3. Given her hemodynamic and respiratory stability during the CCU, she was evaluated by PT and recommendations were made for subacute rehab. By hospital day #6, she was accepted to and deemed stable for discharge to subacute rehab. CONDITION: Fair, improved. DISPOSITION[facility]. DISCHARGE MEDICATIONS: Lipitor 80 mg p.o. daily, Coumadin 4 mg p.o. daily, Levaquin 500 mg p.o. daily ( to complete 10-day course) and Tramadol 50 mg p.o. q. 8 hours p.r.n. pain. DISCHARGE INSTRUCTIONS: The patient was advised if she develops any chest pain, palpitations, dyspnea or hemoptysis, to notify [facility] physicians at [facility] immediately. FOLLOWUP: The patient will follow up with her PMD within 1 week of discharge. The patient will follow up with Dr. Morales as scheduled. Elpidio Martinez MD [facility]ARD
== END 2017-07-15 13:59 | DRG 480 ==
LOC: ED 11:51 → ERH 13:57 → 3RNO 16:43 → CCU 07-09 22:36
PROVIDERS: ADMIT Student in an Organized Health Care Education/Training Program; ATTEND Student in an Organized Health Care Education/Training Program
PROC: 30233N1 Transfusion of Nonautologous Red Blood Cells into Peripheral Vein, Percutaneous Approach (ICD-10-PCS; 2017-07-09)
PROC: 0QS606Z Reposition Right Upper Femur with Intramedullary Internal Fixation Device, Open Approach (ICD-10-PCS; principal; 2017-07-09 13:00)
DX: S72.141A Displaced intertrochanteric fracture of right femur, initial encounter for closed fracture (principal); I26.99 Other pulmonary embolism without acute cor pulmonale; J18.9 Pneumonia, unspecified organism; L89.152 Pressure ulcer of sacral region, stage 2; E87.2 Acidosis; E86.0 Dehydration; I50.9 Heart failure, unspecified; D63.8 Anemia in other chronic diseases classified elsewhere; I34.0 Nonrheumatic mitral (valve) insufficiency; S72.21XA Displaced subtrochanteric fracture of right femur, initial encounter for closed fracture; W01.0XXA Fall on same level from slipping, tripping and stumbling without subsequent striking against object, initial encounter; F17.200 Nicotine dependence, unspecified, uncomplicated; I25.10 Atherosclerotic heart disease of native coronary artery without angina pectoris; I25.2 Old myocardial infarction; R09.02 Hypoxemia; I73.9 Peripheral vascular disease, unspecified; Z87.440 Personal history of urinary (tract) infections; R40.2412 Glasgow coma scale score 13-15, at arrival to emergency department

== ENCOUNTER 2017-08-29 11:16 | Inpatient (IN) | payer MEDICARE, OTHER ==
--- NOTE | 2017-08-29 12:36 | ED PDOC ---
Arrival/HPI - General Chief Complaint: Abnormal Labs Time Seen by Provider: 08/29/17 11:24 Historian: Patient - History of Present Illness Narrative History of Present Illness (Text): 08/29/17 12:32 A 77 year old female, whose past medical history includes recent hip fracture and anemia, presents to the emergency department complaining of fatigue and shortness of breath over the past week. Patient reports her symptoms worsen with exertion. Patient had an outpatient blood test done yesterday which revealed a "low blood count." Patient was instructed to come the emergency room yesterday but states she was unable to until today. Patient denies any fever, chills, nausea, vomiting, diarrhea, dark or bloody stools, hematemesis, hemoptysis, abdominal pain, chest pain or any other complaints. Time/Duration: 1 week Context: Home Past Medical History - Provider Review Nursing Documentation Reviewed: Yes - Past History Past History: No Previous - Infectious Disease Hx of Infectious Diseases: None - Past Medical History Past Medical History: Non-Contributing - Cardiac Hx Cardiac Disorders: Yes (mi) Hx Congestive Heart Failure: Yes - Pulmonary Hx Respiratory Disorders: Yes - Neurological HX Cerebrovascular Accident: Yes - HEENT Hx HEENT Disorder: Yes (eyeglasses) - Renal Hx Renal Disorder: No - Endocrine/Metabolic Hx Endocrine Disorders: No - Hematological/Oncological Hx Blood Disorders: Yes Hx Blood Transfusions: Yes - Integumentary Hx Dermatological Disorder: Yes Other/Comment: MULTIPLE BRUISING - Musculoskeletal/Rheumatological Hx Musculoskeletal Disorders: Yes Hx Falls: Yes Hx Fractures: Yes (R HIP FRACTURE 07-07-17) Hx Unsteady Gait: Yes - Gastrointestinal Hx Gastrointestinal Disorders: Yes Hx Clostridium Difficile: Yes Hx Colostomy: Yes Hx Diverticulitis: Yes - Genitourinary/Gynecological Hx Genitourinary Disorders: Yes Hx Urinary Tract Infection: Yes - Psychiatric Hx Psychophysiologic Disorder: Yes Hx Substance Use: No - Surgical History Hx Orthopedic Surgery: Yes (HIP R) Other/Comment: ABD R/T DIVERTICULITIS - Anesthesia Hx Anesthesia Reactions: No Hx Malignant Hyperthermia: No - Suicidal Assessment Feels Threatened In Home Enviroment: No Family/Social History - Physician Review Nursing Documentation Reviewed: Yes Family/Social History: No Known Family HX Smoking Status: Current Some Days Smoker Hx Alcohol Use: Yes Frequency of alcohol use: Socially Hx Substance Use: No Allergies/Home Meds Allergies/Adverse Reactions: Allergies No Known Allergies Allergy (Verified 08/29/17 11:28) Home Medications: Home Meds Medication Instructions Recorded Confirmed Atorvastatin [Lipitor] 80 mg PO DAILY 09/02/17 09/02/17 Metoprolol Tartrate [Lopressor] 25 mg PO DAILY 09/02/17 09/02/17 Review of Systems - Review of Systems Constitutional: Fatigue. absent: Fevers, Night Sweats ENT: absent: Hearing Changes, Sore Throat, Epistaxis Respiratory: SOB Cardiovascular: absent: Chest Pain, Palpitations, Edema, Calf Pain, SMITH Gastrointestinal: absent: Abdominal Pain, Stool Changes, Diarrhea, Nausea, Vomiting, Hematemesis, Other (hemoptysis) Genitourinary Female: absent: Dysuria, Hematuria, Urine Output Changes Musculoskeletal: Arthralgias. absent: Back Pain, Neck Pain Skin: Other (multiple bruises). absent: Rash Neurological: absent: Headache, Dizziness, Focal Weakness Endocrine: absent: Polyuria Hemo/Lymphatic: Easy Bleeding, Easy Bruising Psychiatric: absent: Depression, Suicidal Ideation Physical Exam - Physical Exam Narrative Physical Exam (Text): Head: Atraumatic. Normocephalic. Eyes: PERRL. EOMI. Conjunctivae are pale. ENT: Mucous membranes are moist and intact. Oropharynx is clear and symmetric. No epistaxis. Abrasion noted to nasal bridge no active bleeding. Neck: Supple. Full ROM. No JVD. No lymphadenopathy. Cardiovascular: Regular rate. Regular rhythm. Systolic murmur noted. Distal pulses intact. Pulmonary/Chest: No evidence of respiratory distress. Clear to auscultation bilaterally. No wheezing, rales or rhonchi. No tachypnea. Abdominal: Soft and non-distended. There is no tenderness. No rebound, guarding, or rigidity. No organomegaly. Good bowel sounds. Back: No CVA tenderness. No midline tenderness. Extremities: No edema. No cyanosis. No clubbing. Full range of motion in all extremities. No calf tenderness. Multiple ecchymotic lesions to upper extremities and lower extremities. Superficial abrasion to right elbow. No acute bony pain. Rectal: no melena, no gross bleeding noted Skin: Skin is pale. Multiple ecchymotic lesions noted. Neurological: Alert, awake, and oriented to person, place, time, and situation. Normal speech. Motor and sensory exam intact. Psychiatric: Good eye contact. Normal interaction, affect, and behavior. Vital Signs Reviewed: Yes Vital Signs Temp Pulse Resp BP Pulse Ox 08/29/17 20:23 83 20 131/69 100 08/29/17 19:30 87 20 113/77 96 08/29/17 18:00 80 20 141/72 08/29/17 16:53 99.5 F 81 20 134/50 L 08/29/17 16:08 99.5 F 86 22 141/31 L 08/29/17 15:42 99.8 F H 79 18 129/55 L 08/29/17 15:15 94 H 18 122/74 95 08/29/17 13:35 102 H 18 124/80 95 08/29/17 11:42 99.4 F 93 H 18 122/64 99 08/29/17 11:29 99.4 F 93 H 17 122/64 97 Temperature: Afebrile Blood Pressure: Normal Pulse: Regular Respiratory Rate: Normal Appearance: Positive for: Well-Appearing, Non-Toxic, Comfortable Pain Distress: None Mental Status: Positive for: Alert and Oriented X 3 Medical Decision Making ED Course and Treatment: 08/29/17 12:32 Impression: A 77 year old female with fatigue and shortness of breath. Sent in for abnormal blood work from yesterday. Differential dx: gi bleed, anemia, coagulopathy Plan: -- EKG -- Labs -- Reassess and disposition Progress Notes: Patient presents to ED with family. On serial exams and monitoring, she is NOT tachycardic and not hypotensive. She continues to DENY any chest pain or shortness of breath. She denies abdominal pain. Rectal exam reveals NO melena or bloody stool. Patient reports that she is taking Warfarin. Review of past records reveal patient recently treated for hip fracture and was diagnosed with pulmonary embolism in June of this year. Hgb today is 6.1. She reports she was told it was "8" yesterday. INR is 7.9. She states she has not taken her Warfarin "for two days because I ran out". 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 As she requires close monitoring of her vital signs, hemoglobin, and INR will admit to ICU. I reviewed case with Dr. Nunez, and consulted Dr. Osorio. As patient with recent PE, will require close monitoring of INR and after consultation with pulmonary will administer Vitamin K 5 mg at this time with repeat h/h and INR to be signed out to [employer] consultant for follow-up. Patient accepted to ICU by Dr. Hamm. - Critical Care Critical Care Minutes: 45 minutes - Lab Interpretations Lab Results: 08/29/17 12:19 08/29/17 12:55 Lab Results 08/29/17 13:46: Blood Type O POSITIVE, Antibody Screen Negative, Crossmatch See Detail, BBK History Checked Patient has bt 08/29/17 12:55: Sodium 148, Potassium 4.4, Chloride 113 H, Carbon Dioxide 25, Anion Gap 15, BUN 17, Creatinine 0.6 L, Est GFR ( Amer) > 60, Est GFR ( Non-Af Amer) > 60, Random Glucose 103, Calcium 8.6, Total Bilirubin 0.1 L, AST 29, ALT 30, Alkaline Phosphatase 245 H D, Lactate Dehydrogenase 696, Total Creatine Kinase 89, Troponin I < 0.01, Total Protein 6.2, Albumin 3.2, Globulin 2.9, Albumin/Globulin Ratio 1.1 08/29/17 12:19: WBC 11.9 H D, RBC 2.09 L, Hgb 6.1 L* D, Hct 19.8 L*, MCV 94.7 D , MCH 29.2, MCHC 30.8 L, RDW 18.9 H, Plt Count 791 H* D, MPV 10.0, Gran % 67.5, Lymph % (Auto) 15.3 L, Warrick % (Auto) 15.1 H, Eos % (Auto) 1.4 L, Baso % (Auto) 0.7, Gran # 8.06 H, Lymph # (Auto) 1.8, Warrick # (Auto) 1.8 H, Eos # (Auto) 0.2, Baso # (Auto) 0.08 - RAD Interpretation Service Technician: Radiologist - EKG Interpretation EKG Interpretation (Text): EKG at 12:07 sinus rhythm with short pr and premature arial complexes with nonspecific st abnormality Interpreted by ED Physician: Yes Type: 12 lead EKG - Medication Orders Current Medication Orders: Discontinued Medications Cyanocobalamin (Vitamin B12 1000 Mcg/Ml Inj) 1,000 mcg IM ONCE ONE Stop: 08/31/17 17:21 Last Admin: 08/31/17 17:43 Dose: 1,000 mcg IM Administration Charges Document 08/31/17 17:43 KOBI (Rec: 08/31/17 17:43 KOBI [facility] [id number] Injection Site MAR Injection Site Right Deltoid Charges for Administration # of IM Administrations 1 Darbepoetin Cameron (Aranesp) 100 mcg SC ONCE ONE Stop: 08/31/17 12:32 Last Admin: 08/31/17 13:39 Dose: 100 mcg Subcutaneous Administrations Document 08/31/17 13:39 KOBI (Rec: 08/31/17 13:39 KOBI [facility] [id number]) Injection Site MAR Injection Site Left Deltoid Charges for Administration # of Subcutaneous Administrations 1 Phytonadione 5 mg/ Sodium (Chloride) 50.5 mls @ 100 mls/hr IV ONCE ONE Stop: 08/29/17 17:43 Last Admin: 08/29/17 18:15 Dose: 100 mls/hr eMAR Start Stop Document 08/29/17 18:15 SS (Rec: 08/29/17 18:15 SS [id number]) Intravenous Solution Start Date 08/29/17 Start Time 18:15 End Date 08/29/17 End time 19:15 Total Infusion Time 60 Iron Sucrose 100 mg/ Sodium (Chloride) 105 mls @ 210 mls/hr IVPB ONCE ONE Stop: 08/31/17 23:14 Last Admin: 09/01/17 05:51 Dose: Not Given Non-Admin Reason: Patient Refused Ceftriaxone Sodium (Rocephin 1 Gram Ivpb) 1 gm in 100 mls @ 100 mls/hr IVPB DAILY ENID PRN Reason: Protocol Last Admin: 09/02/17 10:25 Dose: 100 mls/hr eMAR Start Stop Document 09/02/17 10:25 DUC (Rec: 09/02/17 10:25 DUC [id number]) Intravenous Solution Start Date 09/02/17 Start Time 10:25 Pantoprazole Sodium (Protonix Ec Tab) 40 mg PO ACB ENID Last Admin: 09/02/17 10:25 Dose: 40 mg Polysaccharide Iron Complex (Ferrex-150) 150 mg PO DAILY ENID Last Admin: 09/02/17 10:25 Dose: 150 mg Tramadol HCl (Ultram) 50 mg PO Q8 PRN PRN Reason: Pain, moderate (4-7) - Scribe Statement The provider has reviewed the documentation as recorded by the Michael Osborne Provider Mayuriibe Attestation: All medical record entries made by the Scribe were at my direction and personally dictated by me. I have reviewed the chart and agree that the record accurately reflects my personal performance of the history, physical exam, medical decision making, and the department course for this patient. I have also personally directed, reviewed, and agree with the discharge instructions and disposition. Disposition/Present on Arrival - Present on Arrival Any Indicators Present on Arrival: Yes History of DVT/PE: Yes History of Uncontrolled Diabetes: No Urinary Catheter: No History of Decub. Ulcer: No History Surgical Site Infection Following: None - Disposition Have Diagnosis and Disposition been Completed?: Yes Diagnosis: Anemia, Elevated INR Disposition: HOSPITALIZED Disposition Time: 17:41 Patient Plan: Admission, ICU Condition: CRITICAL
[2017-08-29 12:52] LABS: BASO # 0.08 K/mm3 (0.0-2.0); BASO % 0.7 % (0.0-3.0); EOS # 0.2 (0.0-0.7); EOS % 1.4 % (1.5-5.0); GRAN # 8.06 (1.4-6.5); GRAN % 67.5 % (50.0-68.0); LYMPH # 1.8 (1.2-3.4); LYMPH % 15.3 % (22.0-35.0); MEAN CELL VOLUME 94.7 fl (80.0-105.0); MEAN CORPUSCULAR HEMOGLOBIN 29.2 pg (25.0-35.0); MEAN CORPUSCULAR HGB CONC 30.8 g/dl (31.0-37.0); MONO # 1.8 (0.1-0.6); MONO % 15.1 % (1.0-6.0); RBC 2.09 10^6/uL (3.5-6.1); RED CELL DISTRIBUTION WIDTH 18.9 % (11.5-14.5); WHITE BLOOD COUNT 11.9 10^3/ul (4.5-11.0)
[2017-08-29 12:54] LABS: HEMOGLOBIN 6.1 g/dL (12.0-16.0)
[2017-08-29 13:18] LABS: ALB/GLOB RATIO 1.1 (1.1-1.8); ALBUMIN 3.2 g/dL (3.0-4.8); ALT/SGPT 30 U/L (7-56); AST/SGOT 29 U/L (14-36); BLOOD UREA NITROGEN 17 mg/dL (7-21); CALCIUM 8.6 mg/dL (8.4-10.5); GFR AFRICAN-AMERICAN > 60; GFR NON-AFRICAN AMERICAN > 60
[2017-08-29 13:29] LABS: TROPONIN I < 0.01 ng/mL
--- NOTE | 2017-08-29 14:43 | CP.PCM.CON ---
<Мария Cifuentes - Last Filed: 08/29/17 14:07> History of Present Illness - History of Present Illness History of Present Illness: Мария Cifuentes, PGY1, Consult Note for Dr Hamm: Consult: anemia 77 year old female, with PMH recent right hi ORIF, PVD, mesenteric ischemia s/p SMA stent, CAD, TIA, presents for fatigue for past few days. Pt was sent to ED by PMD for "low blood count." Denies cp, sob, hematemesis, hemoptysis, melena, headache, nausea, vomiting, abdominal pain, fever, chills, leg swelling. Pt reports that she would like to have coffee and wants to go home. In ED, patient afebrile, hemodynamically stable. SBP in 120s. CBC showed Hgb 6.1 (baseline 8.5). 12 point ROS obtained and negative, except as per HPI. PMH: severe PVD, mesenteric ischemia s/p SMA stent w/ history of ischemic colitis s/p R hemicoelctomy s/p ileostomy w/ reversal, CAD s/p NSTEMI and TIA PSH: R hip ORIF, SOURAV/BSO, R hemicolectomy with illeostomy reversal ALL: NKDA SHx: drinks ETOH occasionally, denies any smoking or drugs FHx: Non contributory Review of Systems - Review of Systems All systems: reviewed and no additional remarkable complaints except Review of Systems: as per HPI Past Patient History - Infectious Disease Hx of Infectious Diseases: None - Past Medical History & Family History Past Medical History?: Yes - Past Social History Smoking Status: Current Some Days Smoker - CARDIAC Hx Cardiac Disorders: Yes (mi) Hx Congestive Heart Failure: Yes - PULMONARY Hx Respiratory Disorders: Yes - NEUROLOGICAL HX Cerebrovascular Accident: Yes - HEENT Hx HEENT Problems: Yes (eyeglasses) - RENAL Hx Chronic Kidney Disease: No - ENDOCRINE/METABOLIC Hx Endocrine Disorders: No - HEMATOLOGICAL/ONCOLOGICAL Hx Blood Disorders: Yes Hx Blood Transfusions: Yes - INTEGUMENTARY Hx Dermatological Problems: Yes Other/Comment: MULTIPLE BRUISING - MUSCULOSKELETAL/RHEUMATOLOGICAL Hx Musculoskeletal Disorders: Yes Hx Falls: Yes Hx Fractures: Yes (R HIP FRACTURE 07-07-17) Hx Unsteady Gait: Yes - GASTROINTESTINAL Hx Gastrointestinal Disorders: Yes Hx Clostridium Difficile: Yes Hx Colostomy: Yes Hx Diverticulitis: Yes - GENITOURINARY/GYNECOLOGICAL Hx Genitourinary Disorders: Yes Hx Urinary Tract Infection: Yes - PSYCHIATRIC Hx Psychophysiologic Disorder: Yes Hx Substance Use: No - SURGICAL HISTORY Hx Orthopedic Surgery: Yes (HIP R) Other/Comment: ABD R/T DIVERTICULITIS - ANESTHESIA Hx Anesthesia Reactions: No Hx Malignant Hyperthermia: No Meds Allergies/Adverse Reactions: Allergies Allergy/AdvReac Type Severity Reaction Status Date / Time No Known Allergies Allergy Verified 08/29/17 11:28 Physical Exam - Constitutional Appears: Non-toxic, No Acute Distress - Head Exam Head Exam: ATRAUMATIC, NORMOCEPHALIC - Eye Exam Eye Exam: EOMI, PERRL. absent: Conjunctival injection, Nystagmus, Scleral icterus Pupil Exam: NORMAL ACCOMODATION, PERRL. absent: Fixed, Irregular, Unequal Additional comments: + pale conjunctiva - ENT Exam ENT Exam: Mucous Membranes Moist - Neck Exam Neck exam: Positive for: Full Rom - Respiratory Exam Respiratory Exam: Clear to Auscultation Bilateral, NORMAL BREATHING PATTERN. absent: Accessory Muscle Use, Chest Wall Tenderness, Rales, Rhonchi, Wheezes, Respiratory Distress, Stridor - Cardiovascular Exam Cardiovascular Exam: RRR, +S1, +S2. absent: Systolic Murmur - GI/Abdominal Exam GI & Abdominal Exam: Normal Bowel Sounds, Soft. absent: Diminished Bowel Sounds , Distended, Firm, Guarding, Mass, Organomegaly, Rebound, Rigid, Tenderness - Extremities Exam Extremities exam: Positive for: normal inspection. Negative for: calf tenderness, pedal edema - Back Exam Back exam: NORMAL INSPECTION - Neurological Exam Neurological exam: Alert, Oriented x3 - Psychiatric Exam Psychiatric exam: Normal Affect, Normal Mood - Skin Skin Exam: Dry, Pallor, Warm Additional comments: + old bruising noted bilateral upper extremities Results - Vital Signs Recent Vital Signs: Last Vital Signs Temp 99.4 F 08/29/17 11:42 Pulse 93 H 08/29/17 11:42 Resp 18 08/29/17 11:42 BP 122/64 08/29/17 11:42 Pulse Ox 99 08/29/17 11:42 - Labs Result Diagrams: 08/29/17 12:19 08/29/17 12:55 Labs: Laboratory Results - last 24 hr 08/29/17 08/29/17 12:19 12:55 WBC 11.9 H D RBC 2.09 L Hgb 6.1 L* D Hct 19.8 L* MCV 94.7 D MCH 29.2 MCHC 30.8 L RDW 18.9 H Plt Count 791 H* D MPV 10.0 Gran % 67.5 Lymph % (Auto) 15.3 L Williams % (Auto) 15.1 H Eos % (Auto) 1.4 L Baso % (Auto) 0.7 Gran # 8.06 H Lymph # (Auto) 1.8 Williams # (Auto) 1.8 H Eos # (Auto) 0.2 Baso # (Auto) 0.08 Sodium 148 Potassium 4.4 Chloride 113 H Carbon Dioxide 25 Anion Gap 15 BUN 17 Creatinine 0.6 L Est GFR ( Amer) > 60 Est GFR (Non-Af Amer) > 60 Random Glucose 103 Calcium 8.6 Total Bilirubin 0.1 L AST 29 ALT 30 Alkaline Phosphatase 245 H D Lactate Dehydrogenase 696 Total Creatine Kinase 89 Troponin I < 0.01 Total Protein 6.2 Albumin 3.2 Globulin 2.9 Albumin/Globulin Ratio 1.1 Assessment & Plan - Assessment and Plan (Free Text) Assessment: 77 year old female with PMH mesenteric ischemia s/p SMA stent, CAD, TIA, PVD, presents for anemia. Denies active bleeding, hematemesis, melena, sob, cp, abdominal pain. Pt is requesting for coffee and wants to go home. Pt is afebrile, hemodynamically stable. Patient does not currently require ICU care. Can proceed with medical management of patient. Case seen and discussed with Dr Hamm. - Date & Time Date: 08/29/17 Time: 14:52 <Iván Hamm - Last Filed: 08/29/17 15:11> Results - Vital Signs Recent Vital Signs: Last Vital Signs Temp 99.4 F 08/29/17 11:42 Pulse 102 H 08/29/17 13:35 Resp 18 08/29/17 13:35 BP 124/80 08/29/17 13:35 Pulse Ox 95 08/29/17 13:35 - Labs Result Diagrams: 08/29/17 12:19 08/29/17 12:55 Labs: Laboratory Results - last 24 hr 08/29/17 08/29/17 08/29/17 12:19 12:55 13:46 WBC 11.9 H D RBC 2.09 L Hgb 6.1 L* D Hct 19.8 L* MCV 94.7 D MCH 29.2 MCHC 30.8 L RDW 18.9 H Plt Count 791 H* D MPV 10.0 Gran % 67.5 Lymph % (Auto) 15.3 L Williams % (Auto) 15.1 H Eos % (Auto) 1.4 L Baso % (Auto) 0.7 Gran # 8.06 H Lymph # (Auto) 1.8 Williams # (Auto) 1.8 H Eos # (Auto) 0.2 Baso # (Auto) 0.08 Sodium 148 Potassium 4.4 Chloride 113 H Carbon Dioxide 25 Anion Gap 15 BUN 17 Creatinine 0.6 L Est GFR ( Amer) > 60 Est GFR (Non-Af Amer) > 60 Random Glucose 103 Calcium 8.6 Total Bilirubin 0.1 L AST 29 ALT 30 Alkaline Phosphatase 245 H D Lactate Dehydrogenase 696 Total Creatine Kinase 89 Troponin I < 0.01 Total Protein 6.2 Albumin 3.2 Globulin 2.9 Albumin/Globulin Ratio 1.1 Blood Type O POSITIVE Antibody Screen Negative Crossmatch See Detail BBK History Checked Patient has bt Assessment & Plan - Assessment and Plan (Free Text) Assessment: Patient seen and examined with resident agree with note with following additions /exceptions: 77 year old female, with PMH recent right hi ORIF, PVD, mesenteric ischemia s/p SMA stent, CAD, TIA, presents for fatigue for past few days. Pt was sent to ED by PMD for anemia. Currently afebrile, HD stable, comfortable in NAD, hgb noted 6.1. Last GHISLAINE 125/70, HR 80s, awake, alert in NAD, requesting coffee and to be sent home. Coagulopathy Anemia GIB Recommend: - supp o2 as needed - scott culture, - HOLD BP meds - IVF hydration - Check FOBT - NPO - CT A/P with IV contrast if renal function permits - transfuse 2u PRBC - check INR, reverse INR if any coagulopathy present, with FFP, VitK - GI eval - DVT ppx, SCDs - Monitor in telemetry, STABLE
[2017-08-29 16:39] LABS: PROTHROMBIN TIME 94.5 SECONDS (9.4-12.5)
[2017-08-29 16:40] LABS: INR 7.95 (0.93-1.08); PARTIAL THROMBOPLASTIN TIME 75.5 Seconds (25.1-36.5)
[2017-08-29] MEDS ORDERED: Phytonadione 10 MG in Sodium Chloride 0.9% 50 ML IV ONE (16:57)
[2017-08-29] MEDS ORDERED: Phytonadione 5 MG in Sodium Chloride 0.9% 50 ML IV ONE (17:13)
--- NOTE | 2017-08-29 18:49 | CARD ---
APPROVED REPORT EKG Measurement Heart [id number] CT 90P83 [id number] <Conclusion> Sinus rhythm with short CT with premature atrial complexes with aberrant conduction Nonspecific ST abnormality Abnormal ECG
--- NOTE | 2017-08-29 19:09 | CP.PCM.PN ---
Subjective - Date & Time of Evaluation Date of Evaluation: 08/29/17 Time of Evaluation: 19:08 - Subjective Subjective: Labs noted Will transfuse 2u prbc, VitK IV repeat CBC, Q6hr, INR Admit to MICU Objective - Vital Signs/Intake and Output Vital Signs (last 24 hours): Temp Pulse Resp BP Pulse Ox 99.5 F 80 20 141/72 95 08/29/17 16:53 08/29/17 18:00 08/29/17 18:00 08/29/17 18:00 08/29/17 15:15 Intake and Output: 08/29/17 08/30/17 18:59 06:59 Intake Total 0 Balance 0 - Medications Medications: Current Medications Pantoprazole Sodium (Protonix Ec Tab) 40 mg PO ACB ENID Tramadol HCl (Ultram) 50 mg PO Q8 PRN PRN Reason: Pain, moderate (4-7) - Labs Labs: PT 94.5 SECONDS (9.4-12.5) H 08/29/17 16:14 INR 7.95 (0.93-1.08) H* 08/29/17 16:14 APTT 75.5 Seconds (25.1-36.5) H 08/29/17 16:14
[2017-08-29 22:50] LABS: BASO # 0.05 K/mm3 (0.0-2.0); BASO % 0.5 % (0.0-3.0); EOS # 0.1 (0.0-0.7); GRAN # 7.03 (1.4-6.5); GRAN % 64.2 % (50.0-68.0); HEMOGLOBIN 7.1 g/dL (12.0-16.0); LYMPH % 18.5 % (22.0-35.0); MEAN CELL VOLUME 90.3 fl (80.0-105.0); MEAN CORPUSCULAR HEMOGLOBIN 28.6 pg (25.0-35.0); MEAN CORPUSCULAR HGB CONC 31.7 g/dl (31.0-37.0); MEAN PLATELET VOLUME 9.2 fl (7.0-11.0); MONO # 1.7 (0.1-0.6); MONO % 15.8 % (1.0-6.0); RBC 2.48 10^6/uL (3.5-6.1); RED CELL DISTRIBUTION WIDTH 17.8 % (11.5-14.5)
[2017-08-29 22:59] LABS: INR 2.26 (0.93-1.08); PROTHROMBIN TIME 26.2 SECONDS (9.4-12.5)
[2017-08-29 23:00] LABS: PARTIAL THROMBOPLASTIN TIME 41.7 Seconds (25.1-36.5)
[2017-08-30 04:51] VITALS: BMI 15.0
[2017-08-30 06:30] LABS: HEMOGLOBIN 8.7 g/dL (12.0-16.0); MEAN CELL VOLUME 90.5 fl (80.0-105.0); MEAN CORPUSCULAR HEMOGLOBIN 29.5 pg (25.0-35.0); MEAN CORPUSCULAR HGB CONC 32.6 g/dl (31.0-37.0); MEAN PLATELET VOLUME 9.8 fl (7.0-11.0); RBC 2.95 10^6/uL (3.5-6.1); RED CELL DISTRIBUTION WIDTH 16.7 % (11.5-14.5); WHITE BLOOD COUNT 10.5 10^3/ul (4.5-11.0)
[2017-08-30 06:39] LABS: ALBUMIN 3.2 g/dL (3.0-4.8); ALT/SGPT 31 U/L (7-56); AST/SGOT 33 U/L (14-36); BLOOD UREA NITROGEN 20 mg/dL (7-21); CALCIUM 8.5 mg/dL (8.4-10.5); GFR AFRICAN-AMERICAN > 60; GFR NON-AFRICAN AMERICAN > 60; HDL CHOLESTEROL 49 mg/dL (29-60)
[2017-08-30 06:56] LABS: LDL CHOLESTEROL < 30 mg/dL (0-129)
[2017-08-30 08:42] LABS: IRON 74 ug/dL (45-180)
[2017-08-30 08:52] LABS: % IRON SATURATION 21 % (20-55); TOTAL IRON BINDING CAPACITY 344 ug/dL (265-497)
[2017-08-30] MEDS: Pantoprazole 40 mg EC Tab PO SCH (08:55)
--- NOTE | 2017-08-30 08:56 | RAD ---
HISTORY: sob with exertion COMPARISON: 07/09/2017 FINDINGS: LUNGS: No active pulmonary disease. PLEURA: No significant pleural effusion identified, no pneumothorax apparent. CARDIOVASCULAR: Normal. OSSEOUS STRUCTURES: No significant abnormalities. VISUALIZED UPPER ABDOMEN: Normal. OTHER FINDINGS: None. IMPRESSION: No active disease.
--- NOTE | 2017-08-30 09:55 | CP.PCM.PN ---
Subjective - Date & Time of Evaluation Date of Evaluation: 08/30/17 Time of Evaluation: 07:10 - Subjective Subjective: Patient seen and examined, reports no major complaints. Objective - Vital Signs/Intake and Output Vital Signs (last 24 hours): Temp Pulse Resp BP Pulse Ox 99.4 F 75 24 155/57 H 99 08/30/17 04:00 08/30/17 06:00 08/30/17 03:40 08/30/17 03:00 08/30/17 03:50 Intake and Output: 08/30/17 08/30/17 06:59 18:59 Intake Total 1330 Output Total 540 Balance 790 - Medications Medications: Current Medications Pantoprazole Sodium (Protonix Ec Tab) 40 mg PO ACB ENID Last Admin: 08/30/17 08:55 Dose: 40 mg Tramadol HCl (Ultram) 50 mg PO Q8 PRN PRN Reason: Pain, moderate (4-7) - Labs Labs: 08/30/17 05:00 08/30/17 05:00 PT 26.2 SECONDS (9.4-12.5) H 08/29/17 22:46 INR 2.26 (0.93-1.08) H 08/29/17 22:46 APTT 41.7 Seconds (25.1-36.5) H 08/29/17 22:46 - Constitutional Appears: Non-toxic, No Acute Distress - Head Exam Head Exam: NORMAL INSPECTION - Eye Exam Eye Exam: Normal appearance - ENT Exam ENT Exam: Mucous Membranes Moist - Neck Exam Neck Exam: Full ROM - Respiratory Exam Respiratory Exam: Clear to Ausculation Bilateral, NORMAL BREATHING PATTERN - Cardiovascular Exam Cardiovascular Exam: REGULAR RHYTHM, +S1, +S2 - GI/Abdominal Exam GI & Abdominal Exam: Soft, Normal Bowel Sounds - Extremities Exam Extremities Exam: Normal Inspection - Neurological Exam Neurological Exam: Alert, Awake, Oriented x3 Assessment and Plan - Assessment and Plan (Free Text) Assessment: 77 year old female, with PMH recent right hi ORIF, PVD, mesenteric ischemia s/p SMA stent, CAD, TIA, presents for fatigue for past few days. Pt was sent to ED by PMD for anemia. Currently afebrile, HD stable, comfortable in NAD, hgb noted 6.1, given 2u PRBC, and VitK IV 5mg x 1. HH stable Coagulopathy Anemia GIB Recommend: - supp o2 as needed - scott culture, - HOLD BP meds - IVF hydration - Check FOBT - resume diet - monitor CBC - monitor INR - GI eval - DVT ppx, SCDs - Transfer to telemetry, stable
[2017-08-30 12:45] LABS: FOLATE 6.3 ng/mL
[2017-08-30] MEDS ORDERED: Iohexol 350 MG/100 ML VIAL ONE (19:56)
--- NOTE | 2017-08-30 21:41 | CT ---
EXAM: CT Angiography Chest With Intravenous Contrast CLINICAL HISTORY: 77 years old, female; Signs and symptoms; Other: Pe study TECHNIQUE: Axial computed tomographic angiography images of the chest with intravenous contrast using pulmonary embolism protocol. All CT scans at this facility use one or more dose reduction techniques, viz.: automated exposure control; ma/kV adjustment per patient size (including targeted exams where dose is matched to indication; i.e. head); or iterative reconstruction technique. MIP reconstructed images were created and reviewed. Coronal and sagittal reformatted images were created and reviewed. CONTRAST: 100 mL of [id number] administered intravenously. COMPARISON: CT - ANGIO CHEST PE PROTOCOL 2017-07-09 23:09 FINDINGS: Limitations: Motion artifact - mild. Motion artifact - mild. Pulmonary arteries: No definite pulmonary embolism. Aorta: Moderate atherosclerotic disease. No aneurysm. Occlusion of visualized infrarenal aorta with SMA stent, present on previous examination. Lungs: Mild peripheral atelectasis/scarring. Probable apical scarring. No consolidation. Pleural space: No significant effusion. No pneumothorax. Heart: Mild cardiomegaly. No significant pericardial effusion. Minimal coronary artery calcifications. Bones/joints: Mild compression deformity inferior endplate T9 vertebral body, subacute. Mild compression deformity superior endplate L1 vertebral body, acute or subacute. Soft tissues: Unremarkable. Lymph nodes: No pathologically enlarged lymph nodes. Spleen: Splenules or splenic remnant. Adrenals: Mild hypertrophy of adrenal glands. IMPRESSION: 1. No definite CT evidence of pulmonary embolism. 2. Incidental/non-acute findings are described above.
--- NOTE | 2017-08-30 22:47 | CON ---
DATE: 08/30/2017 PULMONARY CONSULT REFERRING PHYSICIAN: Nicolette Nunez MD. REASON FOR CONSULT: History of pulmonary embolism, anemia. HISTORY OF PRESENT ILLNESS: This is a 77-year-old female, known to me from previous admission, has a history of recent hip fracture, anemia, found to have pulmonary embolism. She was started on anticoagulation. Has outpatient testing done, which shows low hemoglobin and not feeling well, came to emergency room where hemoglobin was around 6 or so, but INR about 7 or so. I spoke to ER physician yesterday, was advised to give her vitamin K 5 mg IV one dose and follow up H and H as well as INR. Noted that she received blood transfusion today. She feels much better. No headache. No rhinitis. There is no hemoptysis. No hematemesis. No hematuria. No hematochezia. No melena. No sign of bleed or bruise reported. PAST MEDICAL HISTORY: Hip fracture, pulmonary embolism, anemia, history of C. diff colitis in the past, history of diverticulitis, UTIs. FAMILY HISTORY: No significant cardiopulmonary disease reported. SOCIAL HISTORY: Positive history of smoking. Denies any alcohol use. ALLERGIES: NONE KNOWN. MEDICATIONS: She is on Protonix 40 mg daily, Ultram 50 mg every 8 hours p.r.n. At home, she was taking Coumadin 4 mg daily, also was on metoprolol 12.5 mg twice a day. REVIEW OF SYSTEMS: Presently, no headache, no rhinitis, no cough, no sputum production, no chest pain, no abdominal pain, no dysuria. Has multiple lower extremity bruises. No edema, though. PHYSICAL EXAMINATION: GENERAL: Lying in the bed. No acute distress. VITAL SIGNS: Temperature is 98, heart rate 77, respiratory rate is 20, blood pressure 141/55, pulse ox 98% on nasal cannula. HEENT: Small oral cavity. Crowded airway. NECK: Supple. No JVD. LUNGS: Fair airflow with rhonchi. HEART: S1 and S2. ABDOMEN: Soft, nontender. No organomegaly. EXTREMITY: Has multiple bruises. NEUROLOGICAL: Awake, alert. Follows simple command. LABORATORY DATA: Shows hemoglobin 8.7, hematocrit 26.7, WBC 10.5, platelet is 546. INR 2.26, PTT is 42. Sodium 148, potassium 3.8, chloride 113, bicarbonate 25, BUN 20, creatinine 0.7, glucose 89, calcium is 8.5, iron is 74, AST 33, ALT 31, alk phos is 209, albumin 3.2. TSH 0.41. Vitamin B12 is 396. Folate is 6.3. Iron was 74. IMPRESSION AND PLAN: History of pulmonary embolism, hip fracture, may be component of chronic lung disease, anemia, iatrogenic coagulopathy, status post blood transfusion, clinically much better. We will repeat CTA. If there is no thrombus, may decide not to anticoagulate. For now, I will give Coumadin 2 mg today. Follow up CBC, INR in the morning. Fall precaution. Thank you and we will follow with you. Sebastian Osorio MD
--- NOTE | 2017-08-31 05:57 | PN ---
DATE: 08/30/2017 SUBJECTIVE: Patient was seen and examined at the bedside on 08/30/2017 and looking comfortable. I saw her in the unit. No nausea, vomiting or diarrhea. No hematuria or hematochezia. No swelling of the leg. No chest pain. No palpitation. No headache. No dizziness. PHYSICAL EXAMINATION: VITAL SIGNS: Patient is afebrile. Temperature 99.1, blood pressure 141/55. HEENT: Head: Normocephalic, atraumatic. Eyes: PERRLA. Extraocular muscles are intact. Conjunctivae clear. Nose patent. Mucous membranes moist. NECK: Supple. No carotid bruit, JVD or thyromegaly. CHEST: Bilaterally symmetrical. HEART: S1 and S2 positive. LUNGS: Clear to auscultation. ABDOMEN: Soft. Bowel sounds present. No organomegaly. EXTREMITIES: No edema. No cyanosis. NEUROLOGIC: Patient is awake, alert, moving all 4 extremities. No focal deficit. MEDICATIONS: Coumadin, Protonix, and tramadol. LABORATORY DATA: White blood cell 10.5, hemoglobin 8.7, hematocrit 26.7, platelets 546. Sodium 148, potassium 3.8, BUN 20, creatinine 0.7, glucose 89. ASSESSMENT AND PLAN: Ms. Shayna Perez is a 77-year-old lady came with severe anemia, hemoglobin 6.1, was admitted in the unit, couple of packed rbc's given, now hemoglobin is 8.7. INR was 7.95, vitamin K given, now repeat INR is 2.26. History of hip fracture recently, pulmonary embolism, that is why she was on Coumadin. She has Clostridium difficile toxin colitis in the past, history of diverticulitis, urinary tract infection, chronic obstructive pulmonary disease. Clinically, patient is improved. Dr. Osorio started Coumadin 2 mg. CAT scan of the chest is done. No definite CT evidence of pulmonary embolism. Incidental acute finding is remnants, mild hypertrophy of the adrenal gland, mild compression deformity of superior endplate L1 vertebral body, acute or subacute mild compression deformity of inferior endplate of T9 vertebral, mild cardiomyopathy, mild peripheral atelectasis, probably apical scarring. No consolidation. We will continue further treatment. Gastrointestinal and deep vein thrombosis prophylaxis. Patient's assessment is under my care in [facility]. Repeat labs. We will follow up. Nicolette Nunez MD [facility] # [id number] MTDMoises
[2017-08-31] MEDS: Pantoprazole 40 mg EC Tab PO SCH (08:32)
[2017-08-31] MEDS ORDERED: Darbepoetin Alfa 100 mcg/ml Inj SC ONE (12:31)
--- NOTE | 2017-08-31 18:25 | PN ---
DATE: 08/31/2017 PULMONARY PROGRESS NOTE REFERRING PHYSICIAN: Nicolette Nunez MD. SUBJECTIVE: She is lying in the bed, head at 45 degrees, sleepy, arousable. No headache. No rhinitis. No nausea. No vomiting. No abdominal pain. No dysuria, leg pain or leg swelling. No melena. No hematochezia. No hematuria reported. OBJECTIVE: GENERAL: No acute distress. VITAL SIGNS: Temperature is 98, heart rate is 75, respiratory rate is 18, blood pressure 114/62, pulse ox 95% on room air. HEENT: Moist mucous membrane. Crowded airway. NECK: Supple. No JVD. LUNGS: Have a fair airflow with rhonchi. HEART: S1 and S2. ABDOMEN: Soft, nontender. No organomegaly. EXTREMITIES: No edema. NEUROLOGICAL: Sleepy, arousable. Follows simple command. MEDICATIONS: She is on Protonix 40 mg daily, Ultram 50,000 subcu every 8 hours. LABORATORY DATA: Shows hemoglobin 8.7, hematocrit 26.7, WBC 10.5, platelet is 546. Sodium 148, hemoglobin A1c 5.2. Her iron is 74. B12 is 393. Folate 6.3. CT scan of the chest was done, which was negative for any pulmonary embolism. IMPRESSION AND PLAN: Status post fall with hip fracture requiring hip replacement ended up with pulmonary embolism, treated with anticoagulation ended up with iatrogenic coagulopathy with a drop of hemoglobin, most likely gastrointestinal loss, but there is no apparent hematochezia, melena. After admission, received 2 units of packed red blood cells until CT of the chest is negative for pulmonary embolism at the present time. Considering risk and benefit ratio with elderly lady with multiple bruises of the lower extremity and life-threatening anemia, I will suggest discontinue Coumadin. May give her sequential compression device to lower extremity. If deep venous thrombosis or pulmonary embolism reoccur, we will reconsider, but for now I think considering risk and benefit ratio, should be off anticoagulation. We will give her iron and Aranesp 100 mcg IM one dose, also give one dose of vitamin B12. Follow up CBC, but should keep daytime JOHN stocking on. Thank you and we will follow with you. Mohammad Devon, MD [facility] # [id number]
[2017-08-31] MEDS ORDERED: Iron Sucrose 100 mg/5 ml Inj IVP ONE (22:33)
--- NOTE | 2017-09-01 03:21 | PN ---
DATE: 08/31/2017 SUBJECTIVE: The patient is a 77-year-old female. Patient is seen and examined at the bedside. Looking comfortable. No nausea, vomiting or diarrhea. No hematuria. No hematochezia. No swelling of the leg. No chest pain. No palpitation. No headache. No dizziness. No dysuria. PHYSICAL EXAMINATION: VITAL SIGNS: Temperature 98, heart rate 75, respiratory rate 18, blood pressure 120/60, pulse oximetry 95% on room air. HEENT: Head: Normocephalic, atraumatic. Eyes: PERRLA. Extraocular muscles are intact. Conjunctivae clear. Nose patent. Mucous membranes moist. NECK: Supple. No carotid bruit, JVD or thyromegaly. CHEST: Bilaterally symmetrical. HEART: S1 and S2 positive. LUNGS: Clear to auscultation. ABDOMEN: Soft, nontender. No organomegaly. EXTREMITIES: No edema. No cyanosis. NEUROLOGIC: Patient is awake, alert, moving all 4 extremities. No focal deficit. MEDICATIONS: Protonix, tramadol. LABORATORY DATA: Hemoglobin 8.7, hematocrit 26.7, white blood cells 10.5, platelets 546. Sodium 148, potassium 3.8. Hemoglobin A1c 5.2. ASSESSMENT AND PLAN: Ms. Shayna Perez is a 77-year-old lady came with coagulopathy, severe anemia, hemoglobin 6.1, after couple of blood transfusions, now it is 8.7, status post fall, history of hip fracture requiring hip replacement ended up in pulmonary embolism, got treatment with anticoagulation ended up with iatrogenic coagulopathy with the drop of hemoglobin, most likely gastrointestinal loss, but there is no apparent hematochezia, melena. CT of the chest was negative for pulmonary embolism at this present time. Considering the risk and benefit ratio with elderly lady with multiple bruises, history of falls, life-threatening anemia, noncompliant because she is alone, had no supportive system, is in the [facility]. stopped the Coumadin, appreciated. We will give sequential compression device to the lower extremity. If deep venous thrombosis or pulmonary embolism will reoccur, we will reconsider for putting , now got iron, Aranesp, B12. Gastrointestinal and deep vein thrombosis prophylaxis. We will follow up. Nicolette Nunez MD [facility] # [id number] RICHARD
[2017-09-01 07:00] LABS: HEMOGLOBIN 8.4 g/dL (12.0-16.0); MEAN CELL VOLUME 92.7 fl (80.0-105.0); MEAN CORPUSCULAR HEMOGLOBIN 29.3 pg (25.0-35.0); MEAN CORPUSCULAR HGB CONC 31.6 g/dl (31.0-37.0); MEAN PLATELET VOLUME 9.7 fl (7.0-11.0); RBC 2.87 10^6/uL (3.5-6.1); RED CELL DISTRIBUTION WIDTH 17.5 % (11.5-14.5); WHITE BLOOD COUNT 12.1 10^3/ul (4.5-11.0)
--- NOTE | 2017-09-01 07:35 | HP ---
This is a 77-year-old female. CHIEF COMPLAINT: Abnormal labs. HISTORY OF PRESENT ILLNESS: a 77-year-old lady, was seen in the rehab, has past medical history of hip fracture and anemia, came to the Emergency Department complaining of fatigue and shortness of breath over the past week. The patient reports her symptoms worse with exertion. The patient has outpatient blood test done yesterday, which revealed low blood count and INR is high. The patient was instructed to come to the Emergency Room yesterday, but states that she was unable to do yesterday, but today first she went to see her who is in the rehab, then came to the Emergency Room. Denies any fever, chills, nausea, vomiting, diarrhea, dark or bloody stool. No hematemesis. No hematochezia. No chest pain. No abdominal pain. PAST MEDICAL HISTORY: [place], congestive heart failure, history of blood transfusion, fall, history of right hip fracture on 07/07/2017, ataxia, history of colostomy, diverticulosis, history of C. diff toxin colitis. FAMILY HISTORY: Father and mother, noncontributory. HABITS: Still smoking. Alcohol, yes, socially. Substance abuse, no. ALLERGIES: THE PATIENT IS NOT ALLERGIC WITH ANY MEDICATIONS. REVIEW OF SYSTEMS: The patient is seen and examined on the bedside in the ER. The patient is not a good historian, is not big complainer. Still feeling fatigue, but no fever, no chills, no night sweats, no sore throat, no epistaxis, but complaining about shortness of breath. No chest pain, palpitations, edema, calf pain. Complaining about abdominal pain. No stool changes. No diarrhea, nausea, vomiting. No hematuria, hematochezia. She had multiple bruises. No headache. No dizziness. No focal deficits. No polyuria, but the patient had easy bruising. PHYSICAL EXAMINATION: VITAL SIGNS: Temperature 99.5, pulse 80 , respiratory rate 20, blood pressure 134/50. HEENT: Head is normocephalic and atraumatic. Eyes; PERRLA. Extraocular muscles are intact. Conjunctivae are clear. Nose is patent. Mucous membranes are moist. NECK: Supple. No carotid bruit. No JVD or thyromegaly. CHEST: Bilaterally symmetrical. HEART: S1 and S2 positive. LUNGS: Clear to auscultation. ABDOMEN: Soft. Bowel sounds positive. No organomegaly. EXTREMITIES: No edema. No cyanosis. NEUROLOGICAL: The patient is awake and alert. Moving all 4 extremities. No focal deficits. LABORATORY DATA: White blood cell is 11.9, hemoglobin 6.1, hematocrit 19.8, platelets noted . Sodium 148, potassium 4.4, BUN 40, creatinine 0.6, glucose 103. ASSESSMENT AND PLAN: a 77-year-old lady with leukocytosis, anemia, thrombocytosis, hypercholesterolemia, has coagulopathy, INR was 7.95. The patient has recent history of PE; so, spoke to Dr. Osorio and they discontinued the idea of they gave vitamin K. Repeat INR is 2.26. blood transfusion and hemoglobin increased from 6.1 to 7.1. Seen by the ICU ad operations coordinator, admitted the patient in the ICU. Was better vitamin K IV. Gastrointestinal and deep venous thrombosis prophylaxis. . Protonix for gastrointestinal prophylaxis. Repeat labs. We will follow up. Nicolette Nunez MD MTDMoises
[2017-09-01 07:42] LABS: ALB/GLOB RATIO 1.1 (1.1-1.8); ALBUMIN 3.2 g/dL (3.0-4.8); ALT/SGPT 29 U/L (7-56); AST/SGOT 29 U/L (14-36); BLOOD UREA NITROGEN 15 mg/dL (7-21); CALCIUM 8.8 mg/dL (8.4-10.5); GFR AFRICAN-AMERICAN > 60; GFR NON-AFRICAN AMERICAN > 60
[2017-09-01] MEDS: Pantoprazole 40 mg EC Tab PO SCH (08:06)
[2017-09-01] MEDS: Iron Complex Polysacch 150mg Cap PO SCH (09:55)
--- NOTE | 2017-09-01 12:40 | RAD ---
HISTORY: ?pne COMPARISON: 08/29/2017 FINDINGS: LUNGS: No active pulmonary disease. PLEURA: No significant pleural effusion identified, no pneumothorax apparent. CARDIOVASCULAR: Normal. OSSEOUS STRUCTURES: No significant abnormalities. VISUALIZED UPPER ABDOMEN: Normal. OTHER FINDINGS: None. IMPRESSION: No active disease.
[2017-09-01 13:13] LABS: PH,URINE 7.5 (4.7-8.0); URINE BILIRUBIN NEGATIVE (NEGATIVE); URINE BLOOD TRACE-INTACT (NEGATIVE); URINE GLUCOSE (UA) NEGATIVE (NEGATIVE); URINE LEUKOCYTE ESTERASE MODERATE Leu/uL (NEGATIVE); URINE PROTEIN NEGATIVE mg/dL (<30 mg/dL); URINE UROBILINOGEN 0.2 E.U./dL (<1 E.U./dL)
[2017-09-01 13:14] LABS: URINE APPEARANCE SL CLOUDY (CLEAR); URINE COLOR YELLOW (YELLOW)
[2017-09-01 13:18] LABS: URINE AMORPHOUS SEDIMENT FEW; URINE BACTERIA MANY (NEG); URINE COARSE GRANULAR CAST TRACE /hpf (0-2); URINE WBC 20 - 25 /hpf (0-6)
--- NOTE | 2017-09-01 22:29 | PN ---
DATE: 09/01/2017 PULMONARY PROGRESS NOTE REFERRING PHYSICIAN: Nicolette Nunez MD. SUBJECTIVE: The patient is lying in the bed, head at 45 degrees, sleepy, arousable. No headache, no rhinitis. No nausea, vomiting, or diarrhea. No leg pain or leg swelling. PHYSICAL EXAMINATION: GENERAL: In no acute distress. VITAL SIGNS: Temperature is 98, heart rate 71, respiratory rate is 20, blood pressure 125/49, pulse ox 97% on room air. HEENT: Moist mucous membrane. Crowded airway. NECK: Supple. No JVD. LUNGS: Have a fair airflow with rhonchi. HEART: S1 and S2. ABDOMEN: Soft, nontender. No organomegaly. EXTREMITIES: No edema. NEUROLOGIC: Sleepy, arousable. Follows simple command. MEDICATIONS: She is on Ferrex 150 mg daily, Protonix 40 mg daily, and Ultram 50 mg every 8hours p.r.n. LABORATORY DATA: Shows hemoglobin 8.4, hematocrit 26.6, WBC 12, platelet is 480. Sodium 144, potassium 4.5, chloride 105, bicarbonate 28, BUN 15, creatinine 0.7, glucose 158, calcium is 8.8. AST 29, ALT 29, alkaline phosphatase is 174, albumin is 3.2. Chest x-ray shows no infiltrate or effusion. IMPRESSION AND PLAN: Status post fall with hip fracture, ended up with pulmonary embolism requiring anticoagulation, admitted with severe anemia, symptomatic, has iatrogenic coagulopathy. Repeat CTA shows no pulmonary embolism. Decision made to discontinue Coumadin. The patient was given Aranesp and iron supplement. Continue to follow CBC. Could be discharged. Fall precaution. Deep venous thrombosis precaution. Thank you and we will follow with you. Sebastian Osorio MD
[2017-09-02 06:48] LABS: HEMOGLOBIN 8.3 g/dL (12.0-16.0); MEAN CELL VOLUME 93.3 fl (80.0-105.0); MEAN CORPUSCULAR HEMOGLOBIN 29.2 pg (25.0-35.0); MEAN CORPUSCULAR HGB CONC 31.3 g/dl (31.0-37.0); MEAN PLATELET VOLUME 9.2 fl (7.0-11.0); RBC 2.84 10^6/uL (3.5-6.1); WHITE BLOOD COUNT 11.5 10^3/ul (4.5-11.0)
[2017-09-02 07:20] LABS: ALB/GLOB RATIO 1.1 (1.1-1.8); ALBUMIN 3.3 g/dL (3.0-4.8); ALT/SGPT 25 U/L (7-56); AST/SGOT 29 U/L (14-36); BLOOD UREA NITROGEN 22 mg/dL (7-21); GFR AFRICAN-AMERICAN > 60; GFR NON-AFRICAN AMERICAN > 60
--- NOTE | 2017-09-02 09:05 | PN ---
DATE: 09/01/2017 SUBJECTIVE: The patient is 77-year-old female. The patient was seen and examined on the bedside. Looking comfortable. No nausea, vomiting, or diarrhea. No hematuria or hematochezia. No swelling of the legs. No chest pain. No palpitation. No headache. No dizziness. PHYSICAL EXAMINATION: VITAL SIGNS: Temperature 98, heart rate 71, respiratory rate 20, blood pressure 127/79, pulse oximetry 99% on room air. HEENT: Head, normocephalic and atraumatic. Eyes, PERRLA. Extraocular muscles intact. Conjunctivae clear. Nose patent. Mucous membrane moist. NECK: Supple. No carotid bruit, JVD, or thyromegaly. CHEST: Bilaterally symmetrical. HEART: S1, S2 positive. LUNGS: Clear to auscultation. ABDOMEN: Soft. Bowel sounds present. No organomegaly. EXTREMITIES: No edema. No cyanosis. NEUROLOGIC: Patient is awake, alert. Moving all four extremities. No focal deficit. MEDICATIONS: Ferrex, Protonix and tramadol. LABORATORY DATA: Hemoglobin 8.4, hematocrit 26.6, white blood cells 12, platelets 480. Sodium 144, potassium of 4.5, BUN 15, creatinine 0.7. AST 29, ALT 29. Chest x-ray shows no infiltrates or effusion. ASSESSMENT AND PLAN: a 77-year-old lady status post fall with hip fracture, ended up with pulmonary emboli requiring anticoagulation, came this time with coagulopathy; history of severe anemia, symptomatic; had iatrogenic coagulopathy, repeat CTA shows no pulmonary emboli. Decision made to discontinue the Coumadin, especially due to coagulopathy evidence. The patient was given Aranesp and iron transfusion. Continue follow up CBC. Gastrointestinal and deep vein thrombosis. Repeat labs. We will discharge home tomorrow if white blood cell will be stable. Otherwise, patient has a history of leukocytosis. We will follow up. Nicolette Nunez MD MTDD
[2017-09-02] MEDS ORDERED: cefTRIAXone 1 gm 1 GM/100 ML BAG IVPB SCH (10:00)
[2017-09-02] MEDS: Pantoprazole 40 mg EC Tab PO SCH (10:25)
[2017-09-02] MEDS: Iron Complex Polysacch 150mg Cap PO SCH (10:25)
[2017-09-02 12:51] LABS: PH,URINE 6.5 (4.7-8.0); URINE BILIRUBIN NEGATIVE (NEGATIVE); URINE BLOOD TRACE-INTACT (NEGATIVE); URINE GLUCOSE (UA) NEGATIVE (NEGATIVE); URINE LEUKOCYTE ESTERASE LARGE Leu/uL (NEGATIVE); URINE PROTEIN TRACE mg/dL (<30 mg/dL); URINE UROBILINOGEN 0.2 E.U./dL (<1 E.U./dL)
[2017-09-02 12:52] LABS: URINE APPEARANCE CLOUDY (CLEAR); URINE COLOR LIGHT YELLOW (YELLOW)
[2017-09-02 13:06] LABS: URINE BACTERIA LARGE (NEG); URINE WBC TNTC /hpf (0-6)
[2017-09-02 13:48] VITALS: BP 116/57; PULSE 75; RESP 18; TEMP 98.9; O2SAT 98
--- NOTE | 2017-09-02 15:48 | CP.PCM.CON ---
History of Present Illness - History of Present Illness History of Present Illness: 77 year old female with PMH of right sided hemicolectomy and ileostomy, S/P appendectomy, S/P hysterectomy initially came in to [facility] because of fatigue and generalized weakness for the past several days and the patient is noted to have chronic anemia. Urinalysis was also done because the patient complained of an episode of dysuria, which is showing pyuria. She denies flank pain, no hematuria , no fever or chills, no nausea or vomiting, no chest pain, no headache or dizziness, no abdominal pain, no diarrhea, SOB, no cough or rhinorrhea. Infectious diseases consult is requested to further evaluate and manage. Review of Systems - Review of Systems All systems: reviewed and no additional remarkable complaints except (as per HPI ) Past Patient History - Infectious Disease Hx of Infectious Diseases: None - Past Medical History & Family History Past Medical History?: Yes - Past Social History Smoking Status: Current Some Days Smoker - CARDIAC Hx Cardiac Disorders: Yes (PA) Hx Congestive Heart Failure: Yes - PULMONARY Hx Respiratory Disorders: Yes - NEUROLOGICAL HX Cerebrovascular Accident: Yes - HEENT Hx HEENT Problems: Yes (EYEGLASSES) - RENAL Hx Chronic Kidney Disease: No - ENDOCRINE/METABOLIC Hx Endocrine Disorders: No - HEMATOLOGICAL/ONCOLOGICAL Hx Blood Disorders: Yes Hx Anemia: Yes - INTEGUMENTARY Hx Dermatological Problems: Yes Other/Comment: MULTIPLE BRUISING & SKIN TEARS - MUSCULOSKELETAL/RHEUMATOLOGICAL Hx Musculoskeletal Disorders: Yes Hx Falls: Yes Hx Fractures: Yes (R HIP FRACTURE 07-07-17) Hx Unsteady Gait: Yes - GASTROINTESTINAL Hx Gastrointestinal Disorders: Yes Hx Colostomy: Yes Hx Diverticulitis: Yes - GENITOURINARY/GYNECOLOGICAL Hx Genitourinary Disorders: Yes Hx Urinary Tract Infection: Yes - PSYCHIATRIC Hx Psychophysiologic Disorder: Yes Hx Substance Use: No - SURGICAL HISTORY Hx Orthopedic Surgery: Yes (HIP R) Other/Comment: ABD R/T DIVERTICULITIS - ANESTHESIA Hx Anesthesia Reactions: No Hx Malignant Hyperthermia: No Meds Home Medications: Home Medication List Medication Instructions Recorded Confirmed Type Cefpodoxime [Vantin] 200 mg PO BID 7 Days #14 tab 09/02/17 Rx Iron Polysaccharide [Ferrex-150] 150 mg PO DAILY 30 Days #30 cap 09/02/17 Rx Allergies/Adverse Reactions: Allergies Allergy/AdvReac Type Severity Reaction Status Date / Time No Known Allergies Allergy Verified 08/29/17 11:28 - Medications Medications: Current Medications Ceftriaxone Sodium (Rocephin 1 Gram Ivpb) 1 gm in 100 mls @ 100 mls/hr IVPB DAILY [place] PRN Reason: Protocol Last Admin: 09/02/17 10:25 Dose: 100 mls/hr Pantoprazole Sodium (Protonix Ec Tab) 40 mg PO ACB [facility] Last Admin: 09/02/17 10:25 Dose: 40 mg Polysaccharide Iron Complex (Ferrex-150) 150 mg PO DAILY [facility] Last Admin: 09/02/17 10:25 Dose: 150 mg Tramadol HCl (Ultram) 50 mg PO Q8 PRN PRN Reason: Pain, moderate (4-7) Physical Exam - Constitutional Appears: Cachectic, Chronically Ill - Head Exam Head Exam: NORMAL INSPECTION - ENT Exam ENT Exam: Mucous Membranes Moist - Neck Exam Neck exam: Negative for: Meningismus - Respiratory Exam Respiratory Exam: Decreased Breath Sounds - Cardiovascular Exam Cardiovascular Exam: +S1, +S2 - GI/Abdominal Exam GI & Abdominal Exam: Soft. absent: Tenderness Results - Vital Signs Recent Vital Signs: Last Vital Signs Temp 98.4 F 09/02/17 00:00 Pulse 72 09/02/17 00:00 Resp 20 09/02/17 00:00 BP 116/67 09/02/17 00:00 Pulse Ox 116 H 09/02/17 00:00 - Labs Result Diagrams: 09/02/17 06:15 09/02/17 06:15 Labs: Laboratory Results - last 24 hr 09/01/17 09/02/17 09/02/17 12:50 06:15 06:15 WBC 11.5 H RBC 2.84 L Hgb 8.3 L Hct 26.5 L MCV 93.3 MCH 29.2 MCHC 31.3 RDW 18.0 H Plt Count 453 H MPV 9.2 Sodium 144 Potassium 4.5 Chloride 106 Carbon Dioxide 27 Anion Gap 15 BUN 22 H Creatinine 0.7 Est GFR ( Amer) > 60 Est GFR (Non-Af Amer) > 60 Random Glucose 114 H Calcium 9.0 Total Bilirubin 0.2 AST 29 ALT 25 Alkaline Phosphatase 183 H Total Protein 6.3 Albumin 3.3 Globulin 3.0 Albumin/Globulin Ratio 1.1 Urine Color Yellow Urine Appearance Sl cloudy Urine pH 7.5 Ur Specific [place] 1.015 Urine Protein Negative Urine Glucose (UA) Negative Urine Ketones Negative Urine Blood Trace-intact H Urine Nitrate Positive H Urine Bilirubin Negative Urine Urobilinogen 0.2 Ur Leukocyte Esterase Moderate H Urine RBC 5 - 10 Urine WBC 20 - 25 Ur Epithelial Cells 4 - 5 Amorphous Sediment Few Urine Bacteria Many Coarse Granular Casts Trace H Urine Other Uyeast Assessment & Plan - Assessment and Plan (Free Text) Plan: Assessment R/O UTI history of asymptomatic bacteriuria with Proteus Anemia, etiology to be determined right sided hemicolectomy and ileostomy S/P reversal 2015 S/P appendectomy S/P hysterectomy Plan patient has been started on Ceftriaxone pending urine cx - may use Vantin instead of Ceftriaxone
== END 2017-09-02 15:02 | disposition home or self-care (01) | DRG 812 ==
LOC: ED 11:16 → ERH 14:56 → CCU 21:49 → 5RNO 08-30 20:38
PROVIDERS: ADMIT Internal Medicine; ATTEND Internal Medicine
PROC: 30233N1 Transfusion of Nonautologous Red Blood Cells into Peripheral Vein, Percutaneous Approach (ICD-10-PCS; principal; 2017-08-29)
DX: D64.9 Anemia, unspecified (principal); D68.8 Other specified coagulation defects; T45.515A Adverse effect of anticoagulants, initial encounter; I42.9 Cardiomyopathy, unspecified; J98.11 Atelectasis; N39.0 Urinary tract infection, site not specified; I50.9 Heart failure, unspecified; E78.00 Pure hypercholesterolemia, unspecified; I73.9 Peripheral vascular disease, unspecified; I25.10 Atherosclerotic heart disease of native coronary artery without angina pectoris; F17.200 Nicotine dependence, unspecified, uncomplicated; J44.9 Chronic obstructive pulmonary disease, unspecified; D47.3 Essential (hemorrhagic) thrombocythemia; W19.XXXD Unspecified fall, subsequent encounter; S72.001D Fracture of unspecified part of neck of right femur, subsequent encounter for closed fracture with routine healing; Z86.73 Personal history of transient ischemic attack (TIA), and cerebral infarction without residual deficits; Z79.01 Long term (current) use of anticoagulants; Z86.711 Personal history of pulmonary embolism; Z93.3 Colostomy status; I25.2 Old myocardial infarction; Z86.19 Personal history of other infectious and parasitic diseases; Z91.19 Patient's noncompliance with other medical treatment and regimen

== ENCOUNTER 2018-04-27 10:23 | Inpatient (IN) | payer MEDICARE ==
[2018-04-27 10:47] VITALS: BMI 17.3
[2018-04-27] MEDS ORDERED: TDAP Vaccine 0.5 mL Syr IM ONE (11:06)
--- NOTE | 2018-04-27 11:11 | ED PDOC ---
Arrival/HPI - General Chief Complaint: Trauma Historian: Patient - History of Present Illness Narrative History of Present Illness (Text): 04/27/18 11:08 78 y/o female, pmh including htn/hld/[place]/GI bleed/colitis/hip fracture/NSTEMI, nkda, last tetanus doesn't remember, c/o fall on the rt. knee x 1 hour. Pt. stated that she has been fatigue for the past few days, not feeling well, trying to get into the car today and feeling fatigue, fall on the rt. knee with swelling and sustained skin tear on the left forearm (refused sutures), no head/neck/back injury, no numbness or tingling, no headache or night sweat, no palpitation, no chest pain, no change in vision, no rash, no other medical or psychological complaints. Past Medical History - Provider Review Nursing Documentation Reviewed: Yes - Past History Past History: No Previous - Infectious Disease Hx of Infectious Diseases: None - Reproductive Menopause: Yes - Past Medical History Past Medical History: Non-Contributing - Cardiac Hx Cardiac Disorders: Yes (mi) Hx Congestive Heart Failure: Yes - Pulmonary Hx Respiratory Disorders: Yes - Neurological HX Cerebrovascular Accident: Yes - HEENT Hx HEENT Disorder: Yes (eyeglasses) - Renal Hx Renal Disorder: No - Endocrine/Metabolic Hx Endocrine Disorders: No - Hematological/Oncological Hx Blood Disorders: Yes Hx Blood Transfusions: Yes - Integumentary Hx Dermatological Disorder: Yes Other/Comment: MULTIPLE BRUISING - Musculoskeletal/Rheumatological Hx Musculoskeletal Disorders: Yes Hx Falls: Yes Hx Fractures: Yes (R HIP FRACTURE 07-07-17) Hx Unsteady Gait: Yes - Gastrointestinal Hx Gastrointestinal Disorders: Yes Hx Clostridium Difficile: Yes Hx Colostomy: Yes Hx Diverticulitis: Yes - Genitourinary/Gynecological Hx Genitourinary Disorders: Yes Hx Urinary Tract Infection: Yes - Psychiatric Hx Psychophysiologic Disorder: Yes Hx Substance Use: No - Surgical History Hx Orthopedic Surgery: Yes (HIP R) Other/Comment: ABD R/T DIVERTICULITIS - Anesthesia Hx Anesthesia Reactions: No Hx Malignant Hyperthermia: No - Suicidal Assessment Feels Threatened In Home Enviroment: No Family/Social History - Physician Review Nursing Documentation Reviewed: Yes Family/Social History: Unknown Family HX Smoking Status: Current Some Days Smoker Hx Alcohol Use: Yes Hx Substance Use: No Allergies/Home Meds Allergies/Adverse Reactions: Allergies No Known Allergies Allergy (Verified 08/29/17 11:28) Home Medications: Home Meds Medication Instructions Recorded Confirmed Atorvastatin [Lipitor] 80 mg PO DAILY 09/02/17 04/27/18 Metoprolol Tartrate [Lopressor] 25 mg PO DAILY 09/02/17 04/27/18 Review of Systems - Review of Systems Constitutional: Fatigue. absent: Fevers Eyes: absent: Vision Changes ENT: absent: Hearing Changes Respiratory: absent: SOB, Cough Cardiovascular: absent: Chest Pain Gastrointestinal: absent: Abdominal Pain, Nausea, Vomiting Musculoskeletal: Arthralgias, Myalgias. absent: Back Pain Skin: Laceration. absent: Rash, Pruritis, Skin Lesions, Abscess, Ulcer, Cellulitis Neurological: absent: Headache, Dizziness Psychiatric: absent: Anxiety, Depression, Suicidal Ideation Physical Exam Vital Signs Reviewed: Yes Vital Signs Temp Pulse Resp BP Pulse Ox 04/27/18 10:24 98.4 F 57 L 18 148/63 97 Temperature: Afebrile Blood Pressure: Normal Pulse: Bradycardic Respiratory Rate: Normal Appearance: Positive for: Well-Appearing, Non-Toxic, Comfortable Pain Distress: Mild Mental Status: Positive for: Alert and Oriented X 3 - Systems Exam Head: Present: Atraumatic, Normocephalic, Other (no facial tenderness or swelling. ). No: Tenderness, Contusion, Swelling, Ecchymosis, Abrasion, Laceration Pupils: Present: PERRL Extroacular Muscles: Present: EOMI Conjunctiva: Present: Normal Ears: Present: NORMAL TM, Normal Canal. No: Erythema Mouth: Present: Moist Mucous Membranes Pharnyx: No: ERYTHEMA, EXUDATE, TONSILS ENLARGED Nose (External): Present: Atraumatic. No: Abrasion, Contusion, Laceration Nose (Internal): Present: Normal Inspection, No Active Bleeding. No: Rhinorrhea, Septal Hematoma, Epistaxis Neck: Present: Normal Range of Motion, Trachea Midline. No: Meningeal Signs, MIDLINE TENDERNESS, Paraspinal Tenderness, Lymphadenopathy Respiratory/Chest: Present: Clear to Auscultation, Good Air Exchange. No: Respiratory Distress, Accessory Muscle Use, Wheezes, Decreased Breath Sounds, Rales, Retracting, Rhonchi, Tachypneic, Tender to Palpation Cardiovascular: Present: Regular Rate and Rhythm, Normal S1, S2. No: Murmurs Abdomen: No: Tenderness, Distention, Peritoneal Signs, Rebound, Guarding Back: Present: Normal Inspection. No: CVA Tenderness, Midline Tenderness, Paraspinal Tenderness Upper Extremity: Present: Normal Inspection, Normal ROM, NORMAL PULSES, Neurovascularly Intact, Capillary Refill < 2s, Other (Lt. forearm: visible v shaped skin tear approx. 3cm superficial with no scaphoid or bony tenderness, FROM without limitation, sensation intact, motor 5/5, +radial pulse, capillary refill< 2 seconds, neurovascular intact. ). No: Cyanosis, Edema, Tenderness, Swelling, Erythema, Temperature Abnormalties, Deformity Lower Extremity: Present: Normal Inspection, Other (Rt. LE: +ttp on the lateral aspect of the knee with no swelling, mild ecchymosis on the proximal lateral fibula region, no other tenderness or swelling, FROM without limitation, sensat ion intact, motor 5/5, +radial pulse, capillary refill< 2 seconds, neurovasclar intact. ). No: Edema Neurological: Present: GCS=15, CN II-XII Intact, Speech Normal, Motor Func Grossly Intact, Gait Normal, Memory Normal Skin: Present: Warm, Dry, Normal Color. No: Rashes Psychiatric: Present: Alert, Oriented x 3, Normal Insight, Normal Concentration Medical Decision Making ED Course and Treatment: 04/27/18 11:13 -labs -xray -tdap/tylenol -I recommend suturing but the patient refused and stated that she has this skin tear frequently, refused the wound to be sutured, understand the risk of infection and scarring. I irrigated the wound with normal saline 1000cc, clean with betadine, bacitracin and gauze dressing. -EKG -Observe and reassess 04/27/18 15:04 -EKG: Sinus Bradycardia @ 59 BPM with PAC, no acute ST or T wave changes compared with previous ekgs. -Chest xray: ER wet read: no acative disease -Rt. tibia/fibula xray: ER wet read: no fracture or dislocation. -Rt. knee xray: ER wet read: no fracture or dislocation. -Labs show no acute findings except hgb 10.6 with MCV 107, K+ 5.4 (elevated, normal creatine and no tall T waves) with kayaxylate ordered. -Mg within normal limit -Trop is negative -UA show +UTI, rocephine 1gm IV ordered. -I discussed labs/radiology results with the patient, lives alone and high risk of fall with fatigue and UTI, paged out to Dr. Nunez or admission. -She has rt. knee pain, limited relief from tylenol, oxycodone 5mg po ordered. 04/27/18 16:05 -I spoke to Dr. Jacobsen, covering for Dr. Nunez, discussed about the case/labs/radiology results, agreed on the admission to his service and request Dr. Zarate for routine consult. -CT head ordered -Routine consult ordered. 04/27/18 18:41 -CT Head: No acute intracranial abnormalities. No significant findings to account for the clinical presentation. No significant interval change compared to the prior examination(s). - RAD Interpretation Radiology Orders: 04/27/18 11:06 CHEST TWO VIEWS (PA/LAT) [RAD] Stat KNEE W PATELLA RIGHT 3 VIEW [RAD] Stat TIBIA FIBULA RIGHT [RAD] Stat -Chest xray Date of service: 04/27/2018 HISTORY: fatigue COMPARISON: 09/01/2017 TECHNIQUE: Chest PA and lateral FINDINGS: LUNGS: No active pulmonary disease. PLEURA: No significant pleural effusion identified. No pneumothorax apparent. CARDIOVASCULAR: Aortic calcification Normal cardiac size. No pulmonary vascular congestion. OSSEOUS STRUCTURES: No significant abnormalities. VISUALIZED UPPER ABDOMEN: Normal. OTHER FINDINGS: None. IMPRESSION: No active disease. -Rt. tibia/fibula xray Date of service: 04/27/2018 PROCEDURE: Right Knee Radiographs. HISTORY: Fall COMPARISON: None. FINDINGS: BONES: Normal. No fracture. There is osteoporosis with prominent trabecula proximally. JOINTS: Normal. No osteoarthritis. JOINT EFFUSION: None. OTHER FINDINGS: None. IMPRESSION: No acute fracture - -Rt. knee xray Date of service: 04/27/2018 PROCEDURE: Right Knee Radiographs. HISTORY: Fall COMPARISON: None. FINDINGS: BONES: There is no evidence of fracture. There is some bony sclerosis and calcification in the medullary canal suspicious for bone infarcts. There is also osteoporosis with prominent trabecula JOINTS: Normal. No osteoarthritis. JOINT EFFUSION: None. OTHER FINDINGS: None. IMPRESSION: No acute findings CT Head: Date of service: 04/27/2018 PROCEDURE: CT HEAD WITHOUT CONTRAST. HISTORY: Fall COMPARISON: 04/06/2017 TECHNIQUE: Axial computed tomography images were obtained through the head/brain without intravenous contrast. Supplemental Coronal and Sagittal projections created and reviewed. Radiation dose: Total exam DLP = 945.61 mGy-cm. This CT exam was performed using one or more of the following dose reduction techniques: Automated exposure control, adjustment of the mA and/or kV according to patient size, and/or use of iterative reconstruction technique. FINDINGS: HEMORRHAGE: No intracranial hemorrhage. BRAIN: No mass effect or edema. Cortical and cerebellar atrophy, periventricular small vessel disease. VENTRICLES: Unremarkable. No hydrocephalus. CALVARIUM: Unremarkable. PARANASAL SINUSES: Unremarkable as visualized. No significant inflammatory changes. MASTOID AIR CELLS: Partially opacified left mastoid air cells OTHER FINDINGS: None. IMPRESSION: No acute intracranial abnormalities. No significant findings to account for the clinical presentation. No significant interval change compared to the prior examination(s). Analytics Manager: Radiologist - Medication Orders Current Medication Orders: Acetaminophen (Tylenol 325mg Tab) 650 mg PO STAT STA Stop: 04/27/18 11:07 Tetanus/Reduced Diphtheria/Acell Pertussis (Boostrix Vaccine Inj) 0.5 ml IM .ONCE ONE Stop: 04/27/18 11:07 - PA / PERINATAL NURSE / Resident Statement MD/DO has reviewed & agrees with the documentation as recorded. Disposition/Present on Arrival - Present on Arrival Any Indicators Present on Arrival: No History of DVT/PE: Yes History of Uncontrolled Diabetes: No Urinary Catheter: No History of Decub. Ulcer: No History Surgical Site Infection Following: None - Disposition Have Diagnosis and Disposition been Completed?: Yes Diagnosis: UTI (urinary tract infection), Fatigue, Skin tear, Knee pain, Non compliance with medical treatment Disposition: HOSPITALIZED Disposition Time: 15:06 Patient Plan: Observation Patient Problems: Current Active Problems Problem Status Onset Skin tear Acute UTI (urinary tract infection) Acute Fatigue Acute Knee pain Acute Non compliance with medical treatment Acute Condition: STABLE
[2018-04-27 11:36] LABS: BASO # 0.1 K/mm3 (0.0-2.0); BASO % 0.9 % (0.0-3.0); EOS # 0.1 (0.0-0.7); GRAN # 8.12 (1.4-6.5); GRAN % 76.6 % (50.0-68.0); HEMOGLOBIN 10.6 g/dL (12.0-16.0); LYMPH # 1.4 (1.2-3.4); LYMPH % 13.1 % (22.0-35.0); MEAN CELL VOLUME 107.3 fl (80.0-105.0); MEAN CORPUSCULAR HEMOGLOBIN 33.8 pg (25.0-35.0); MEAN CORPUSCULAR HGB CONC 31.5 g/dl (31.0-37.0); MEAN PLATELET VOLUME 10.4 fl (7.0-11.0); MONO # 0.9 (0.1-0.6); MONO % 8.4 % (1.0-6.0); RBC 3.14 10^6/uL (3.5-6.1); RED CELL DISTRIBUTION WIDTH 15.1 % (11.5-14.5); WHITE BLOOD COUNT 10.6 10^3/uL (4.5-11.0)
[2018-04-27 11:43] LABS: INR 0.92; PARTIAL THROMBOPLASTIN TIME 28.6 Seconds (25.1-36.5); PROTHROMBIN TIME 10.6 SECONDS (9.4-12.5)
[2018-04-27 11:53] LABS: ALB/GLOB RATIO 1.4 (1.1-1.8); ALBUMIN 4.9 g/dL (3.0-4.8); ALT/SGPT 27 U/L (7-56); AST/SGOT 27 U/L (14-36); BLOOD UREA NITROGEN 21 mg/dL (7-21); CALCIUM 9.9 mg/dL (8.4-10.5); GFR NON-AFRICAN AMERICAN 44
[2018-04-27 12:03] LABS: TROPONIN I < 0.01 ng/mL
[2018-04-27] MEDS ORDERED: Sod Polystyrene Sulf 15 gm/60 ml Susp PO STA (12:13)
--- NOTE | 2018-04-27 12:48 | RAD ---
Date of service: 04/27/2018 HISTORY: fatigue COMPARISON: 09/01/2017 TECHNIQUE: Chest PA and lateral FINDINGS: LUNGS: No active pulmonary disease. PLEURA: No significant pleural effusion identified. No pneumothorax apparent. CARDIOVASCULAR: Aortic calcification Normal cardiac size. No pulmonary vascular congestion. OSSEOUS STRUCTURES: No significant abnormalities. VISUALIZED UPPER ABDOMEN: Normal. OTHER FINDINGS: None. IMPRESSION: No active disease.
--- NOTE | 2018-04-27 12:51 | RAD ---
Date of service: 04/27/2018 PROCEDURE: Right Knee Radiographs. HISTORY: Fall COMPARISON: None. FINDINGS: BONES: There is no evidence of fracture. There is some bony sclerosis and calcification in the medullary canal suspicious for bone infarcts. There is also osteoporosis with prominent trabecula JOINTS: Normal. No osteoarthritis. JOINT EFFUSION: None. OTHER FINDINGS: None. IMPRESSION: No acute findings
--- NOTE | 2018-04-27 12:53 | RAD ---
Date of service: 04/27/2018 PROCEDURE: Right Knee Radiographs. HISTORY: Fall COMPARISON: None. FINDINGS: BONES: Normal. No fracture. There is osteoporosis with prominent trabecula proximally. JOINTS: Normal. No osteoarthritis. JOINT EFFUSION: None. OTHER FINDINGS: None. IMPRESSION: No acute fracture
[2018-04-27] MEDS ORDERED: Sodium Chloride 0.9% 500 ML IV STA (13:19)
[2018-04-27 13:44] LABS: PH,URINE 6.5 (4.7-8.0); URINE BILIRUBIN NEGATIVE (NEGATIVE); URINE BLOOD LARGE (NEGATIVE); URINE GLUCOSE (UA) NEGATIVE (NEGATIVE); URINE LEUKOCYTE ESTERASE LARGE Leu/uL (NEGATIVE); URINE PROTEIN 100 mg/dL (<30 mg/dL); URINE UROBILINOGEN 0.2 E.U./dL (<1 E.U./dL)
[2018-04-27 13:46] LABS: URINE APPEARANCE TURBID (CLEAR); URINE COLOR YELLOW (YELLOW)
[2018-04-27 13:51] LABS: URINE BACTERIA FEW /hpf; URINE WBC 15 - 20 /hpf (0-6)
[2018-04-27] MEDS ORDERED: cefTRIAXone 1 gm 1 GM/100 ML BAG IVPB STA (14:00)
--- NOTE | 2018-04-27 14:09 | CARD ---
APPROVED REPORT Date of service: 04/27/2018 EKG Measurement Heart [id number] [id number] <Conclusion> Sinus bradycardia with premature atrial complexes Otherwise normal ECG
[2018-04-27] MEDS ORDERED: oxyCODONE 5 mg Immediate Release Tab PO STA (15:01)
[2018-04-27] MEDS ORDERED: Sodium Chloride 0.9% 1,000 ML IV SCH ×2 (16:15)
--- NOTE | 2018-04-27 18:42 | CT ---
Date of service: 04/27/2018 PROCEDURE: CT HEAD WITHOUT CONTRAST. HISTORY: Fall COMPARISON: 04/06/2017 TECHNIQUE: Axial computed tomography images were obtained through the head/brain without intravenous contrast. Supplemental Coronal and Sagittal projections created and reviewed. Radiation dose: Total exam DLP = 945.61 mGy-cm. This CT exam was performed using one or more of the following dose reduction techniques: Automated exposure control, adjustment of the mA and/or kV according to patient size, and/or use of iterative reconstruction technique. FINDINGS: HEMORRHAGE: No intracranial hemorrhage. BRAIN: No mass effect or edema. Cortical and cerebellar atrophy, periventricular small vessel disease. VENTRICLES: Unremarkable. No hydrocephalus. CALVARIUM: Unremarkable. PARANASAL SINUSES: Unremarkable as visualized. No significant inflammatory changes. MASTOID AIR CELLS: Partially opacified left mastoid air cells OTHER FINDINGS: None. IMPRESSION: No acute intracranial abnormalities. No significant findings to account for the clinical presentation. No significant interval change compared to the prior examination(s).
--- NOTE | 2018-04-27 23:49 | CP.PCM.PCO ---
Physician Communication Note - Physician Communication Note Physician Communication Note: Nursing Paged resident 04/27/18 - 2249 Addendum Addendum: 04/27/18 23:45 Nursing paged resident on 04/27/18 at 2250 to inform that patient was having severe pain in her RLE Chart reviewed and revealed patient had a fall and had trauma to her R knee Upon further review patient still c/o pain despite being given oxycodone and tramadol Resident advised to apply ice pack to extremity and elevate affected extremity; Labs reviewed and patient had good kidney function; x1 Toradol 30mg IVP was admin. Upon reevaluation of patient at 2340 it was noted that she was still in severe pain Will admin lidoderm topical patch to affected area and reassess.
[2018-04-28] MEDS ORDERED: Lidocaine 5% Patch TD STA (00:14)
[2018-04-28] MEDS: Pantoprazole 40 mg EC Tab PO SCH (06:22)
[2018-04-28] MEDS ORDERED: Lidocaine 5% Patch TD SCH (10:00)
[2018-04-28] MEDS: Iron Complex Polysacch 150mg Cap PO SCH (10:25)
[2018-04-28] MEDS: cefTRIAXone 1 gm 1 GM/100 ML BAG IVPB SCH (10:25)
--- NOTE | 2018-04-28 16:39 | CP.PCM.PN ---
Subjective - Date & Time of Evaluation Date of Evaluation: 04/28/18 Time of Evaluation: 16:31 - Subjective Subjective: House Doc Note: Called for low blood pressure This is a 78 year old female with PMH PE, right hip fracture, NSTEMI, HTN, admitted to [facility] yesterday s/p fall, UTI. Currently, nurse states that she had a low BP 80/60, patient is asymptomatic, denies dizziness, nausea, vomiting, chest pain, shortness of breath, altered mentation, neck pain, fevers, abdominal pain, lower extremity swelling. Patient states that pain from her falls, right knee, is currently controlled. Patient states that she is eating well at the hospital. I did the blood pressure manually, found to be 100/60 mmHg. VS T 97.6F HR 57, BP 100/60, RR 18, 96% RA Neuro: AAOx4 Resp: CTA b/l. No wheezes, rhonchi. Cardio: S1, S2, RRR. no murmurs, rubs, gallops. Abd: soft, nontender, nondistended Extremities: no edema, no calf tenderness. A/P: Hypotension 2/2 pain medication - Will hold tramadol, lopressor for now - Tylenol prn pain. Lidoderm patches - 500 cc IVF bolus now - recheck BP after bolus - will increase maintenance IVF to 100 cc - Discussed case with Dr Jacobsen, who is covering for PMD Dr Nunez. Мария Cifuentes, PGY2 Objective - Vital Signs/Intake and Output Vital Signs (last 24 hours): Temp Pulse Resp BP Pulse Ox 97.6 F 57 L 18 82/40 L 94 L 04/28/18 16:15 04/28/18 16:15 04/28/18 16:15 04/28/18 16:15 04/28/18 16:15 Intake and Output: 04/28/18 04/28/18 06:59 18:59 Intake Total 982 Output Total 200 Balance 782 - Medications Medications: Current Medications Atorvastatin Calcium (Lipitor) 80 mg PO DIN [facility] Sodium Chloride (Sodium Chloride 0.9%) 1,000 mls @ 75 mls/hr IV [id number] [facility] Last Admin: 04/27/18 19:32 Dose: 75 mls/hr Ceftriaxone Sodium (Rocephin 1 Gram Ivpb) 1 gm in 100 mls @ 100 mls/hr IVPB DAILY [facility]; Protocol Last Admin: 04/28/18 10:25 Dose: 100 mls/hr Metoprolol Tartrate (Lopressor) 25 mg PO DAILY [facility] Last Admin: 04/28/18 10:25 Dose: 25 mg Pantoprazole Sodium (Protonix Ec Tab) 40 mg PO 0600 [facility] Last Admin: 04/28/18 06:22 Dose: 40 mg Polysaccharide Iron Complex (Ferrex-150) 150 mg PO DAILY [facility] Last Admin: 04/28/18 10:25 Dose: 150 mg Tramadol HCl (Ultram) 50 mg PO Q8H PRN PRN Reason: Pain, moderate (4-7) Last Admin: 04/28/18 15:31 Dose: 50 mg - Labs Labs: 04/27/18 11:20 04/27/18 11:20 PT 10.6 SECONDS (9.4-12.5) 04/27/18 11:20 INR 0.92 04/27/18 11:20 APTT 28.6 Seconds (25.1-36.5) 04/27/18 11:20
[2018-04-28] MEDS ORDERED: Sodium Chloride 0.9% 1,000 ML IV SCH (17:58)
--- NOTE | 2018-04-28 18:32 | CON ---
NEUROLOGY CONSULTATION DATE: 04/28/2018 CHIEF COMPLIANT: Fatigue and fall. CURRENT HISTORY OF PRESENT ILLNESS: This is a 78-year-old woman with history of PE, right hip fracture, NSTEMI, and hypertension who was admitted to [facility] yesterday for status post fall while getting into the car, hit the knee as well as some mild urinary tract infection. Currently had low blood pressure also noted over 80/60, but the patient is asymptomatic. Denies any dizziness. The patient is definitely mildly deconditioned. fatigue and some low systolic and diastolic blood pressures and her fall was mechanical in nature from underlying deconditioned state. PAST MEDICAL HISTORY: As above. SOCIAL HISTORY: No illicit drug use, smoking or ETOH abuse. ALLERGIES: NO KNOWN DRUG ALLERGIES. FAMILY HISTORY: Noncontributory. MEDICATIONS: Reviewed by nurse's reconciliation sheet. REVIEW OF SYSTEMS: Fourteen-point review of systems is negative except as per HPI. PHYSICAL EXAMINATION: GENERAL: The patient is seen in bed, in no acute distress. VITAL SIGNS: Temperature 98.4, pulse rate of 54, blood pressure of 82/40, and respiratory rate 18. HEENT: Atraumatic and normocephalic. PERRLA. Extraocular muscles intact. NECK: Supple. No JVD. No adenopathy noted. LUNGS: Clear to auscultation. No adventitious sounds. HEART: S1 and S2. Normal rate and rhythm. No murmurs, rubs or gallops. ABDOMEN: Soft, nontender, and nondistended. Bowel sounds are present. EXTREMITIES: No clubbing. No cyanosis. Peripheral pulses 2+ felt bilaterally. NEUROLOGIC: The patient is alert and oriented to person, place, month, and year. Speech is fluent without any errors. Cranial nerves II through XII are intact. Motor exam; moves all extremities equally. Toes are downgoing bilaterally. Sensory exam; light touch, pinprick, proprioception, and vibration intact. DTRs are 2+ throughout. Coordination; [id number] is intact. No dysmetria noted. IMPRESSION: Fatigue is likely secondary hypotensive episode, superimposed underlying deconditioned state, which also has led to her falls, which is mechanical in nature and from underlying deconditioned state as well. RECOMMENDATIONS: At this time: 1. We will recommend Lidoderm patch to the area of pain. 2. Adequate hydration since she has low systolic and diastolic blood pressures and PT and OT evaluation. Thank you for this consult. Devante Zarate MD
[2018-04-28] MEDS ORDERED: Sod Polystyrene Sulf 15 gm/60 ml Susp PO ONE (21:02)
--- NOTE | 2018-04-28 23:47 | PN ---
DATE: 04/28/2018 SUBJECTIVE: The patient is a 78-year-old female. She is comfortable. Today, she is on the bed. No distress. She has no other complaints. No fever. No nausea. No vomiting. PHYSICAL EXAMINATION: VITAL SIGNS: Temperature 98.3, heart rate 63, blood pressure 165/88, respirations 20, and saturation 95% on room air. HEAD AND NECK: Normal. No JVD. No thyromegaly. CHEST: Clear bilateral. CARDIAC: First sound and second sound normal. ABDOMEN: Soft. obese, and nontender. EXTREMITIES: No edema. NEUROLOGIC: Normal. The patient moves all extremities. IMPRESSION AND PLAN: 1. Status post mechanical fall. We will continue observation and physical therapy. Continue gastrointestinal and deep venous thrombosis prophylaxis. 2. Urinary tract infection. Continue Rocephin IV. 3. Coronary artery disease. Continue Lipitor and continue beta caitlin and metoprolol. 4. The patient has arthritis. tramadol. We will see how she do, and we will follow up clinically. We will continue gastrointestinal and deep venous thrombosis prophylaxis. Repeat laboratory in the morning. We will consider ultrasound of the legs in the morning. Continue current therapy. Zach Jacobsen MD
--- NOTE | 2018-04-29 04:38 | HP ---
DATE OF EXAM: 04/27/2018 REASON FOR ADMISSION: She fell on the floor. HISTORY OF PRESENT ILLNESS: The patient came into the emergency room, brought by relative. This is a 78-year-old with history of GI bleed in the past, colitis, hip fracture, non-ST elevation CA, came in complaining of the fall, hit the right knee an hour ago. The patient states she denied any chest pain, palpitation, dizziness or short of breath, fever, diarrhea, nausea, or vomiting. She came into the ER for evaluation and she denied any other complaint. The patient has a mechanical fall, mainly her foot stuck on the ground and that is why she fell. She has no syncope or any cardiovascular or neurologic-associated symptoms. PAST MEDICAL HISTORY: As I mentioned above, she does have a history of GI bleeding, CA, hip fractures, hypertension, and non-ST elevation CA. ALLERGIES: SHE HAS NO KNOWN ALLERGY. SOCIAL HISTORY: No smoking. No drinking. FAMILY HISTORY: Noncontributory. REVIEW OF SYSTEMS: As in the present illness, she always complain of some pain in the back, leg, difficulty ambulation . No chest pain. No short of breath except going upstairs. No urine incontinence. No rectal bleeding. PHYSICAL EXAMINATION: GENERAL: The patient was seen in the emergency room at known admissions on 04/27/2018. VITAL SIGNS: Temperature 99.1, heart rate 60, blood pressure 131/56, respirations 18, sat 97%. HEAD AND NECK: Normal. No JVD. No thyromegaly. CHEST: Clear bilateral. CARDIAC: First sound and second sound normal. ABDOMEN: Soft, obese, nontender. EXTREMITIES: There is no edema, but there is right knee pain and tender from the fall. NEUROLOGICAL: Shows moving all extremities. LABORATORY DATA: White count 10.6, hemoglobin 10.6, hematocrit 33.7, platelets 348, although chemistry; sodium 139, potassium 5.4, chloride 112, bicarb 15 which is low, BUN 21, creatinine 1.2. Liver function test is normal. Troponin is 0.01. Total protein 8.4, albumin 4.9. PT, PTT is normal. Her urinalysis shows 15 to 20 white cells and 10 to 15 red blood cells with positive nitrites. The patient has multiple x-rays, negative for fractures. CT of the head was done and it was negative. The patient also had electrocardiogram , negative for acute bleed; no change from previous one. and electrocardiogram read by Dr. Salcedo, and there was no sinus bradycardia, QRS complexes, otherwise normal. IMPRESSION AND PLAN: 1. Status post fall, knee pain, arthritis. We will admit the patient for observation. She may need to be evaluated by physical therapy for gait training. 2. Urinary tract infections. We will start the patient on Rocephin 1 g, still awaiting for cultures. We will wait for cultures too. 3. History of coronary artery disease. Continue Lopressor. 4. History of hypercholesterolemia. Continue Lipitor. We are going to add baby aspirin and we will follow up clinically. We will repeat lab in the morning. Zach Jacobsen MD
[2018-04-29] MEDS: Pantoprazole 40 mg EC Tab PO SCH ×2 (05:47→06:09)
[2018-04-29 06:57] LABS: BLOOD UREA NITROGEN 15 mg/dL (7-21); CALCIUM 8.6 mg/dL (8.4-10.5); GFR NON-AFRICAN AMERICAN > 60
--- NOTE | 2018-04-29 17:03 | CP.PCM.PN ---
Subjective - Date & Time of Evaluation Date of Evaluation: 04/29/18 Time of Evaluation: 09:45 - Subjective Subjective: unable to walk secondary to pain in leg s/p fall Objective - Vital Signs/Intake and Output Vital Signs (last 24 hours): Temp Pulse Resp BP Pulse Ox 97 F L 64 16 107/52 L 94 L 04/29/18 16:35 04/29/18 16:35 04/29/18 16:35 04/29/18 16:35 04/29/18 16:35 Intake and Output: 04/29/18 04/29/18 06:59 18:59 Intake Total 1820 Output Total 1550 Balance 270 - Medications Medications: Current Medications Acetaminophen (Tylenol 325mg Tab) 650 mg PO Q6H PRN PRN Reason: Pain, moderate (4-7) Atorvastatin Calcium (Lipitor) 80 mg PO DIN [facility] Last Admin: 04/28/18 18:19 Dose: 80 mg Enoxaparin Sodium (Lovenox) 30 mg SC DAILY [facility]; Protocol Ceftriaxone Sodium (Rocephin 1 Gram Ivpb) 1 gm in 100 mls @ 100 mls/hr IVPB DAILY [facility]; Protocol Last Admin: 04/28/18 10:25 Dose: 100 mls/hr Sodium Chloride (Sodium Chloride 0.9%) 1,000 mls @ 100 mls/hr IV .Q10H [facility] Last Admin: 04/29/18 03:59 Dose: 100 mls/hr Lidocaine (Lidoderm) 1 ea TD DAILY [facility] Metoprolol Tartrate (Lopressor) 25 mg PO DAILY [facility] Last Admin: 04/28/18 10:25 Dose: 25 mg Pantoprazole Sodium (Protonix Ec Tab) 40 mg PO 0600 [facility] Last Admin: 04/29/18 06:09 Dose: 40 mg Polysaccharide Iron Complex (Ferrex-150) 150 mg PO DAILY [facility] Last Admin: 04/28/18 10:25 Dose: 150 mg Tramadol HCl (Ultram) 50 mg PO Q8H PRN PRN Reason: Pain, moderate (4-7) Last Admin: 04/28/18 15:31 Dose: 50 mg - Labs Labs: 04/27/18 11:20 04/29/18 06:15 PT 10.6 SECONDS (9.4-12.5) 04/27/18 11:20 INR 0.92 04/27/18 11:20 APTT 28.6 Seconds (25.1-36.5) 04/27/18 11:20 - Respiratory Exam Respiratory Exam: Clear to Ausculation Bilateral, NORMAL BREATHING PATTERN - Cardiovascular Exam Cardiovascular Exam: REGULAR RHYTHM - GI/Abdominal Exam GI & Abdominal Exam: Soft, Normal Bowel Sounds - Back Exam Back Exam: tenderness - Neurological Exam Neurological Exam: Abnormal Gait, Alert, Awake Assessment and Plan (1) Knee pain Status: Acute (2) UTI (urinary tract infection) Status: Acute - Assessment and Plan (Free Text) Plan: IV Rocephin ordered, PT eval/SW for DC planning
--- NOTE | 2018-04-29 17:03 | US ---
PROCEDURE: Lower extremity NUBIA exam HISTORY: Peripheral vascular disease with ischemic pain. Smoker. PHYSICIAN(S): Thee Sosa MD. FINDINGS: The resting NUBIA's are severely abnormal: Right, 0.27 and left, 0.26 There is a 60 mm gradient between the brachial pressures, lower on the left. This is consistent with left subclavian occlusive disease 80-120 mm gradients are noted between the arm and high thigh pressures. This is consistent with aortoiliac disease. The PVR waveforms are moderately blunted but symmetric The calf PVR waveforms augment on the right. There moderately blunted on the left. This is consistent with left SFA occlusive disease. The ankle and metatarsal waveforms are severely blunted. This is consistent with bilateral tibial disease. IMPRESSION: 1. Severely abnormal ABIs at rest. 2. Aortoiliac disease. 3. Left SFA occlusive disease. 4. Bilateral tibial disease. 5. Left subclavian occlusive disease. 6. If further evaluation is indicated, an MRA with gadolinium runoff or CTA runoff can be obtained.
--- NOTE | 2018-04-29 17:04 | US ---
HISTORY: Leg pain and swelling. Evaluate for DVT PHYSICIAN(S): Thee Sosa MD. TECHNIQUE: Duplex sonography and color-flow Doppler with graded compression were used to evaluate the deep venous systems of both lower extremities. FINDINGS: The visualized deep venous systems of both lower extremities are sonographically normal and compressible. Normal wave forms and augmentation are seen. There is no sonographic evidence for deep venous thrombosis in the visualized segments of both lower extremities. IMPRESSION: No sonographic evidence for deep venous thrombosis in the visualized segments of both lower extremities.
[2018-04-30] MEDS: Pantoprazole 40 mg EC Tab PO SCH (05:30)
[2018-04-30] MEDS: Lidocaine 5% Patch TD SCH (09:36)
[2018-04-30] MEDS: Iron Complex Polysacch 150mg Cap PO SCH (09:36)
[2018-04-30] MEDS: cefTRIAXone 1 gm 1 GM/100 ML BAG IVPB SCH (09:37)
[2018-04-30] MEDS: Enoxaparin 30 mg Syringe SC SCH (09:37)
[2018-04-30 09:58] LABS: HEMOGLOBIN 8.7 g/dL (12.0-16.0); MEAN CELL VOLUME 107.2 fl (80.0-105.0); MEAN CORPUSCULAR HGB CONC 30.7 g/dl (31.0-37.0); MEAN PLATELET VOLUME 10.4 fl (7.0-11.0); RBC 2.64 10^6/uL (3.5-6.1); RED CELL DISTRIBUTION WIDTH 14.9 % (11.5-14.5); WHITE BLOOD COUNT 9.7 10^3/uL (4.5-11.0)
--- NOTE | 2018-04-30 12:32 | CP.PCM.PN ---
Subjective - Date & Time of Evaluation Date of Evaluation: 04/30/18 Time of Evaluation: 09:10 - Subjective Subjective: c/o pain right knee/ unable to ambulate Objective - Vital Signs/Intake and Output Vital Signs (last 24 hours): Temp Pulse Resp BP Pulse Ox 98.1 F 57 L 20 113/59 L 95 04/30/18 08:20 04/30/18 08:20 04/30/18 08:20 04/30/18 08:20 04/30/18 08:20 Intake and Output: 04/30/18 04/30/18 06:59 18:59 Intake Total 1440 Output Total 350 Balance 1090 - Medications Medications: Current Medications Acetaminophen (Tylenol 325mg Tab) 650 mg PO Q6H PRN PRN Reason: Pain, moderate (4-7) Last Admin: 04/30/18 03:34 Dose: 650 mg Atorvastatin Calcium (Lipitor) 80 mg PO DIN [facility] Last Admin: 04/29/18 18:03 Dose: 80 mg Enoxaparin Sodium (Lovenox) 30 mg SC DAILY [facility]; Protocol Last Admin: 04/30/18 09:37 Dose: 30 mg Lidocaine (Lidoderm) 1 ea TD DAILY [facility] Last Admin: 04/30/18 09:36 Dose: 1 ea Metoprolol Tartrate (Lopressor) 25 mg PO DAILY [facility] Last Admin: 04/28/18 10:25 Dose: 25 mg Pantoprazole Sodium (Protonix Ec Tab) 40 mg PO 0600 [facility] Last Admin: 04/30/18 05:30 Dose: 40 mg Polysaccharide Iron Complex (Ferrex-150) 150 mg PO DAILY [facility] Last Admin: 04/30/18 09:36 Dose: 150 mg Tramadol HCl (Ultram) 50 mg PO Q8H PRN PRN Reason: Pain, moderate (4-7) Last Admin: 04/28/18 15:31 Dose: 50 mg - Labs Labs: 04/30/18 09:45 04/29/18 06:15 PT 10.6 SECONDS (9.4-12.5) 04/27/18 11:20 INR 0.92 04/27/18 11:20 APTT 28.6 Seconds (25.1-36.5) 04/27/18 11:20 - Respiratory Exam Respiratory Exam: Clear to Ausculation Bilateral, NORMAL BREATHING PATTERN - GI/Abdominal Exam GI & Abdominal Exam: Soft, Normal Bowel Sounds - Neurological Exam Neurological Exam: Abnormal Gait, Alert, Awake - Skin Skin Exam: Dry, Warm Assessment and Plan (1) Knee pain Status: Acute (2) UTI (urinary tract infection) Status: Acute - Assessment and Plan (Free Text) Plan: DC IV Abx & observe for S&S of UTI, pt with probable asymptomatic bactiuria, uri ne + proteus, PT eval and tx, SW for DC planning
[2018-05-01] MEDS: Pantoprazole 40 mg EC Tab PO SCH (05:59)
[2018-05-01] MEDS: Iron Complex Polysacch 150mg Cap PO SCH (10:03)
[2018-05-01] MEDS: Lidocaine 5% Patch TD SCH ×2 (10:03→10:04)
[2018-05-01] MEDS: Enoxaparin 30 mg Syringe SC SCH ×2 (10:03→12:23)
--- NOTE | 2018-05-01 17:19 | CP.PCM.PN ---
Subjective - Date & Time of Evaluation Date of Evaluation: 05/01/18 Time of Evaluation: 10:30 - Subjective Subjective: OOB ambulating with PT, NAD Objective - Vital Signs/Intake and Output Vital Signs (last 24 hours): Temp Pulse Resp BP Pulse Ox 97.6 F 66 18 109/53 L 97 05/01/18 16:39 05/01/18 16:39 05/01/18 16:39 05/01/18 16:39 05/01/18 16:39 Intake and Output: 05/01/18 05/01/18 06:59 18:59 Intake Total 240 240 Balance 240 240 - Medications Medications: Current Medications Acetaminophen (Tylenol 325mg Tab) 650 mg PO Q6H PRN PRN Reason: Pain, moderate (4-7) Last Admin: 05/01/18 10:03 Dose: 650 mg Atorvastatin Calcium (Lipitor) 80 mg PO DIN [facility] Last Admin: 04/30/18 17:48 Dose: 80 mg Enoxaparin Sodium (Lovenox) 30 mg SC DAILY [facility]; Protocol Last Admin: 05/01/18 12:23 Dose: 30 mg Lidocaine (Lidoderm) 1 ea TD DAILY [facility] Last Admin: 05/01/18 10:04 Dose: 1 ea Metoprolol Tartrate (Lopressor) 25 mg PO DAILY [facility] Last Admin: 04/28/18 10:25 Dose: 25 mg Pantoprazole Sodium (Protonix Ec Tab) 40 mg PO 0600 [facility] Last Admin: 05/01/18 05:59 Dose: 40 mg Polysaccharide Iron Complex (Ferrex-150) 150 mg PO DAILY [facility] Last Admin: 05/01/18 10:03 Dose: 150 mg Tramadol HCl (Ultram) 50 mg PO Q8H PRN PRN Reason: Pain, moderate (4-7) Last Admin: 04/28/18 15:31 Dose: 50 mg - Labs Labs: 04/30/18 09:45 04/29/18 06:15 PT 10.6 SECONDS (9.4-12.5) 04/27/18 11:20 INR 0.92 04/27/18 11:20 APTT 28.6 Seconds (25.1-36.5) 04/27/18 11:20 - Respiratory Exam Respiratory Exam: Clear to Ausculation Bilateral, NORMAL BREATHING PATTERN - Cardiovascular Exam Cardiovascular Exam: REGULAR RHYTHM - GI/Abdominal Exam GI & Abdominal Exam: Soft, Normal Bowel Sounds - Neurological Exam Neurological Exam: Alert, Awake - Skin Skin Exam: Dry, Warm Assessment and Plan (1) Knee pain Status: Acute (2) UTI (urinary tract infection) Status: Acute - Assessment and Plan (Free Text) Plan: continue PT/SW for DC planning
[2018-05-02] MEDS: Pantoprazole 40 mg EC Tab PO SCH (06:58)
--- NOTE | 2018-05-02 10:09 | CP.PCM.PN ---
Subjective - Date & Time of Evaluation Date of Evaluation: 05/02/18 Time of Evaluation: 09:10 - Subjective Subjective: no complaints, no melena, no BRBPR, no abdominal pain Objective - Vital Signs/Intake and Output Vital Signs (last 24 hours): Temp Pulse Resp BP Pulse Ox 98.3 F 60 20 126/67 97 05/02/18 06:00 05/02/18 06:00 05/02/18 06:00 05/02/18 06:00 05/02/18 06:00 Intake and Output: 05/02/18 05/02/18 06:59 18:59 Intake Total 0 Output Total 150 Balance -150 - Medications Medications: Current Medications Acetaminophen (Tylenol 325mg Tab) 650 mg PO Q6H PRN PRN Reason: Pain, moderate (4-7) Last Admin: 05/01/18 18:10 Dose: 650 mg Atorvastatin Calcium (Lipitor) 80 mg PO DIN [facility] Last Admin: 05/01/18 18:10 Dose: 80 mg Lidocaine (Lidoderm) 1 ea TD DAILY [facility] Last Admin: 05/01/18 10:04 Dose: 1 ea Metoprolol Tartrate (Lopressor) 25 mg PO DAILY [facility] Last Admin: 04/28/18 10:25 Dose: 25 mg Pantoprazole Sodium (Protonix Ec Tab) 40 mg PO 0600 [facility] Last Admin: 05/02/18 06:58 Dose: 40 mg Polysaccharide Iron Complex (Ferrex-150) 150 mg PO DAILY [facility] Last Admin: 05/01/18 10:03 Dose: 150 mg Tramadol HCl (Ultram) 50 mg PO Q8H PRN PRN Reason: Pain, moderate (4-7) Last Admin: 04/28/18 15:31 Dose: 50 mg - Labs Labs: 04/30/18 09:45 04/29/18 06:15 PT 10.6 SECONDS (9.4-12.5) 04/27/18 11:20 INR 0.92 04/27/18 11:20 APTT 28.6 Seconds (25.1-36.5) 04/27/18 11:20 - Respiratory Exam Respiratory Exam: Clear to Ausculation Bilateral, NORMAL BREATHING PATTERN - Cardiovascular Exam Cardiovascular Exam: REGULAR RHYTHM - GI/Abdominal Exam GI & Abdominal Exam: Soft, Normal Bowel Sounds - Neurological Exam Neurological Exam: Abnormal Gait, Alert, Awake Assessment and Plan (1) Knee pain Status: Acute (2) UTI (urinary tract infection) Status: Acute (3) Anemia Status: Chronic - Assessment and Plan (Free Text) Plan: check labs, Hb/Hct in am, continue PT, SW for DC planning
[2018-05-02] MEDS: Lidocaine 5% Patch TD SCH (10:17)
[2018-05-02] MEDS: Iron Complex Polysacch 150mg Cap PO SCH (10:17)
[2018-05-02] MEDS: Enoxaparin 30 mg Syringe SC SCH (10:18)
[2018-05-03] MEDS: Pantoprazole 40 mg EC Tab PO SCH (05:51)
[2018-05-03 06:59] LABS: BASO # 0.08 K/mm3 (0.0-2.0); BASO % 0.8 % (0.0-3.0); EOS # 0.3 (0.0-0.7); EOS % 2.9 % (1.5-5.0); GRAN # 6.35 (1.4-6.5); GRAN % 66.9 % (50.0-68.0); HEMOGLOBIN 9.6 g/dL (12.0-16.0); LYMPH % 10.8 % (22.0-35.0); MEAN CELL VOLUME 105.9 fl (80.0-105.0); MEAN CORPUSCULAR HEMOGLOBIN 33.1 pg (25.0-35.0); MEAN CORPUSCULAR HGB CONC 31.3 g/dl (31.0-37.0); MEAN PLATELET VOLUME 10.7 fl (7.0-11.0); MONO # 1.8 (0.1-0.6); MONO % 18.6 % (1.0-6.0); RBC 2.9 10^6/uL (3.5-6.1); RED CELL DISTRIBUTION WIDTH 14.4 % (11.5-14.5); WHITE BLOOD COUNT 9.5 10^3/uL (4.5-11.0)
[2018-05-03 07:37] LABS: ALB/GLOB RATIO 1.2 (1.1-1.8); ALBUMIN 3.6 g/dL (3.0-4.8); ALT/SGPT 34 U/L (7-56); AST/SGOT 29 U/L (14-36); BLOOD UREA NITROGEN 12 mg/dL (7-21); CALCIUM 9.2 mg/dL (8.4-10.5); GFR NON-AFRICAN AMERICAN > 60
[2018-05-03] MEDS: Lidocaine 5% Patch TD SCH (09:07)
[2018-05-03] MEDS: Iron Complex Polysacch 150mg Cap PO SCH (09:07)
--- NOTE | 2018-05-03 11:38 | CP.PCM.PN ---
Subjective - Date & Time of Evaluation Date of Evaluation: 05/03/18 Time of Evaluation: 10:10 - Subjective Subjective: NAD, no chest pain, no SOB, ambulating Objective - Vital Signs/Intake and Output Vital Signs (last 24 hours): Temp Pulse Resp BP Pulse Ox 98.3 F 55 L 18 108/61 95 05/03/18 06:00 05/03/18 06:00 05/03/18 06:00 05/03/18 06:00 05/03/18 06:00 Intake and Output: 05/03/18 05/03/18 06:59 18:59 Intake Total 0 Output Total 200 Balance -200 - Medications Medications: Current Medications Acetaminophen (Tylenol 325mg Tab) 650 mg PO Q6H PRN PRN Reason: Pain, moderate (4-7) Last Admin: 05/02/18 17:09 Dose: 650 mg Atorvastatin Calcium (Lipitor) 80 mg PO DIN [facility] Last Admin: 05/02/18 16:39 Dose: 80 mg Lidocaine (Lidoderm) 1 ea TD DAILY [facility] Last Admin: 05/03/18 09:07 Dose: 1 ea Metoprolol Tartrate (Lopressor) 25 mg PO DAILY [facility] Last Admin: 04/28/18 10:25 Dose: 25 mg Pantoprazole Sodium (Protonix Ec Tab) 40 mg PO 0600 [facility] Last Admin: 05/03/18 05:51 Dose: 40 mg Polysaccharide Iron Complex (Ferrex-150) 150 mg PO DAILY [facility] Last Admin: 05/03/18 09:07 Dose: 150 mg Tramadol HCl (Ultram) 50 mg PO Q8H PRN PRN Reason: Pain, moderate (4-7) Last Admin: 04/28/18 15:31 Dose: 50 mg - Labs Labs: 05/03/18 05:30 05/03/18 05:30 PT 10.6 SECONDS (9.4-12.5) 04/27/18 11:20 INR 0.92 04/27/18 11:20 APTT 28.6 Seconds (25.1-36.5) 04/27/18 11:20 - Respiratory Exam Respiratory Exam: Clear to Ausculation Bilateral, NORMAL BREATHING PATTERN - Cardiovascular Exam Cardiovascular Exam: REGULAR RHYTHM - GI/Abdominal Exam GI & Abdominal Exam: Soft, Normal Bowel Sounds - Neurological Exam Neurological Exam: Abnormal Gait, Alert, Awake - Skin Skin Exam: Dry, Warm Assessment and Plan (1) Knee pain Status: Acute (2) UTI (urinary tract infection) Status: Acute (3) Anemia Status: Chronic - Assessment and Plan (Free Text) Plan: continue PT, SW for discharge planning, Dr. Nunez to resume care of patient in am
[2018-05-04] MEDS: Pantoprazole 40 mg EC Tab PO SCH (05:43)
[2018-05-04] MEDS: Iron Complex Polysacch 150mg Cap PO SCH (09:07)
[2018-05-04] MEDS: Lidocaine 5% Patch TD SCH (09:07)
[2018-05-04 16:57] VITALS: BP 102/56; PULSE 64; RESP 18; TEMP 98; O2SAT 96
--- NOTE | 2018-05-05 00:40 | PN ---
DATE: 05/04/2018 SUBJECTIVE: The patient is a 78-year-old female. The patient was seen and examined at the bedside on 05/04/2018. Looking comfortable. Leg pain is little bit better. No fevers. No chills. No hematuria or hematochezia. No headache. No dizziness. No chest pain. No palpitation. PHYSICAL EXAMINATION VITAL SIGNS: Temperature 98.4, pulse 64, blood pressure 102/56, respiratory rate 18, oxygenation 96. HEENT: Head; normocephalic and atraumatic. Eyes; PERRLA. Extraocular muscles intact. Conjunctivae clear. Nose patent. NECK: Supple. No carotid bruit, JVD, or thyromegaly. CHEST: Bilaterally symmetrical. HEART: S1, S2 positive. LUNGS: Clear to auscultation. ABDOMEN: Soft. Bowel sounds present. No organomegaly. EXTREMITIES: No edema. No cyanosis. NEUROLOGIC: The patient is awake and alert. Follows simple commands. MEDICATIONS: Iron, Lidoderm patch, Lipitor, Lopressor, Protonix Tylenol, and tramadol. LABORATORY DATA: White blood cell 11.5, hemoglobin 9.6, hematocrit 30.7, platelets 359. Sodium 145, potassium 4.2, BUN 12, creatinine 0.6, glucose 105. Alkaline phosphatase 188. ASSESSMENT AND PLAN: Ms. Shayna Perez is a 78-year-old lady with anemia, hyperchloremia, increased alkaline phosphatase, proteinuria, hematuria, urinary tract infection, status post mechanical fall. Getting physical therapy. Got Rocephin for urinary tract infection, coronary artery disease, hypercholesterolemia, getting Lipitor, beta caitlin and metoprolol. Degenerative joint disease, getting tramadol. Gastrointestinal and deep venous thrombosis prophylaxis. Discussion done with the patient. We will try to consider Transitional Care Unit to increase the strength. The patient lives alone by herself. is not able to do her activities of daily living. We will repeat labs. We will follow up. Nicolette Nunez MD RICHARD
[2018-05-05] MEDS: Pantoprazole 40 mg EC Tab PO SCH (05:38)
[2018-05-05] MEDS: Iron Complex Polysacch 150mg Cap PO SCH (10:42)
[2018-05-05] MEDS: Lidocaine 5% Patch TD SCH (10:42)
== END 2018-05-05 12:15 | disposition home or self-care (01) | DRG 690 ==
LOC: ED 10:23 → ERH 16:06 → 3RNO 19:53 → OBSVTOIN 04-29 16:16
PROVIDERS: ADMIT Internal Medicine; ATTEND Internal Medicine
PROC: 3E0234Z Introduction of Serum, Toxoid and Vaccine into Muscle, Percutaneous Approach (ICD-10-PCS; principal; 2018-04-27)
DX: N39.0 Urinary tract infection, site not specified (principal); I95.2 Hypotension due to drugs; T39.95XA Adverse effect of unspecified nonopioid analgesic, antipyretic and antirheumatic, initial encounter; M17.11 Unilateral primary osteoarthritis, right knee; I25.10 Atherosclerotic heart disease of native coronary artery without angina pectoris; I10 Essential (primary) hypertension; E78.00 Pure hypercholesterolemia, unspecified; I25.2 Old myocardial infarction; E78.5 Hyperlipidemia, unspecified; D64.9 Anemia, unspecified; W18.30XA Fall on same level, unspecified, initial encounter; Z91.19 Patient's noncompliance with other medical treatment and regimen; Z86.711 Personal history of pulmonary embolism; Z23 Encounter for immunization